=== PATIENT | female | born 1945 | race Caucasian/White ===

== ENCOUNTER 2016-12-30 08:05 | Outpatient (CLI) | payer MEDICARE, OTHER ==
[2016-12-30 19:59] LABS: BASOPHILS % (AUTO) 1.2 %; EOSINOPHILS # (AUTO) 0.1 10^3/uL (0.0-0.7); EOSINOPHILS % (AUTO) 2.7 %; HCT - HEMATOCRIT 42.2 % (37.0-47.0); HGB - HEMOGLOBIN 13.9 g/dL (12.0-16.0); LYMPHOCYTES # (AUTO) 1.1 10^3/uL (1.5-3.5); LYMPHOCYTES % (AUTO) 31.4 %; MEAN CORPUSCULAR HEMOGLOBIN 31.1 pg (27.0-31.0); MEAN CORPUSCULAR HGB CONC 32.9 g/dL (32.0-36.0); MEAN CORPUSCULAR VOLUME 94.4 fL (81.0-99.0); MEAN PLATELET VOLUME 7.5 fL (7.9-10.8); MONOCYTES # (AUTO) 0.3 10^3/uL (0.0-1.0); MONOCYTES % (AUTO) 8.3 %; NEUTROPHILS # (AUTO) 2.1 10^3/uL (1.5-6.6); NEUTROPHILS % (AUTO) 56.4 %; NUCLEATED RED BLOOD CELLS AUTO 0.1 /100WBC; RED BLOOD COUNT 4.47 10^6/uL (4.20-5.40); RED CELL DISTRIBUTION WIDTH 12.6 % (12.0-15.0); UNCORRECTED WHITE BLOOD COUNT 3.6 x10^3/uL; WHITE BLOOD COUNT 3.6 x10^3/uL (4.8-10.8)
[2016-12-30 20:38] LABS: ALBUMIN/GLOBULIN RATIO 1.4 (1.0-2.2); BILIRUBIN,TOTAL 0.6 mg/dL (0.2-1.0); BUN - BLOOD UREA NITROGEN 11 mg/dL (6-20); CALCIUM 9.5 mg/dL (8.5-10.3); CARBON DIOXIDE - CO2 28 mmol/L (21-32); CHLORIDE 100 mmol/L (101-111); CHOL/HDL RATIO 3.3 (<4.4); CHOLESTEROL 196 mg/dL; CREATININE 0.7 mg/dL (0.4-1.0); GFR - MDRD 82 (>89); GLUCOSE 126 mg/dL (70-100); HDL CHOLESTEROL 59 mg/dL; LDL/HDL RATIO 1.1 (<4.4); POTASSIUM 3.9 mmol/L (3.5-5.0); SODIUM 137 mmol/L (135-145); TOTAL PROTEIN 7.1 g/dL (6.7-8.2); TRIGLYCERIDES 352 mg/dL; VLDL CHOLESTEROL 70 mg/dL
== END 2016-12-30 08:06 | disposition home or self-care (01) ==
LOC: LAB.WCP 08:05
PROVIDERS: ATTEND Family Medicine
DX: R00.2 Palpitations (principal); I10 Essential (primary) hypertension
CPT/HCPCS: 36415; 80053; 80061; 84443; 85025

== ENCOUNTER 2017-01-15 11:01 | Outpatient (CLI) | payer MEDICARE, OTHER ==
--- NOTE | 2017-01-15 15:07 | CARDIAC PROCEDURE NOTE ---
DATE OF SERVICE: 01/15/2017 00:00:00 PRIMARY CARE PHYSICIAN: Bettie Khan DO PROCEDURE: Pharmacologic stress test. PROCEDURE SYMPTOMS: Heart palpitations and hypertension. CARDIAC RISK FACTORS: Include age, hypertension and hyperlipidemia. PREVIOUS CARDIAC PROCEDURES: none. CLINICAL HISTORY: A 71-year-old female without known coronary artery disease. INITIAL RESTING VITAL SIGNS: Blood pressure 148/78, heart rate 77, height 63 inches, weight 143 pounds, BMI 25.0. PROCEDURE AND FINDINGS: The patient's identity and date verified. Consent signed. Drug and dose verified. Pharmacologic stress testing was performed with adenosine at a dose of 140 mcg/kg over 6 minutes. The heart rate increased to 98 bpm with a blood pressure peak of 150/82. The patient developed mild symptoms of restlessness, which resolved spontaneously. The resting ECG demonstrated normal sinus rhythm with poor R-wave progression. No pathologic Q- waves were seen. There was no ST segment depression with stress, and there were 2 isolated premature ventricular contractions. FINAL IMPRESSION 1. Negative stress electrocardiogram for ischemia by electrocardiographic criteria. 2. Negative stress test clinically for angina. 3. Two monolithic premature ventricular contractions. 4. Await myocardial perfusion scan. JOB #: [id number] EXT JOB #:[id number] MTDNancie
[2017-01-15 17:11] VITALS: BP 148/78
--- NOTE | 2017-01-16 09:10 | Nuclear Medicine Report ---
EXAM: SINGLE-ISOTOPE PHARMACOLOGICAL STRESS TEST WITH REGADENOSON. SINGLE-ISOTOPE AND ONE-DAY REST/STRESS M YOCARDIAL PERFUSION SCANS WITH TOMOGRAPHIC IMAGING, QUANTITATIVE ANALYSIS, WALL MOTION ANALYSIS AND C ALCULATION OF EJECTION FRACTION. EXAM DATE: 01/15/2017 12:51 PM. CLINICAL HISTORY: PALPITATIONS, HTN. COMPARISON: None available. TECHNIQUE: After the intravenous administration of 10.6 mCi of Tc-99m sestamibi, a rest myocardial perfusion sca n was done with tomography. Motion correction was applied when appropriate. After an appropriate delay, a pharmacological stress was performed with the infusion of 0.4 mg regade noson per protocol. According to protocol, 43.8 mCi of Tc-99m sestamibi was injected for stress myoca rdial perfusion scan. Motion correction was applied when appropriate. Gated tomographic images were obtained for wall motion analysis and computation of left ventricular e jection fraction. FINDINGS: There is mild apical thinning. No convincing fixed or reversible perfusion defects are evid ent. No focal wall motion abnormality. The left ventricular end-diastolic volume is 61 cc. The left ventricular end-systolic volume is 13 cc . The left ventricular ejection fraction is calculated to be 80%. IMPRESSION: 1. No scintigraphic findings to indicate myocardial ischemia. Negative for infarct. 2. Left ventricular ejection fraction of 80%. 3. Normal segmental and global wall motion. 4. Normal left ventricular cavity size, no change with stress. [facility] Referring Provider Line: [phone] SITE ID: [id number]
== END 2017-01-15 11:02 | disposition home or self-care (01) ==
LOC: DI 11:01
PROVIDERS: ATTEND Family Medicine
DX: R00.2 Palpitations (principal); I10 Essential (primary) hypertension
CPT/HCPCS: 78452; 93017; A9500

== ENCOUNTER 2017-04-01 14:55 | Outpatient (CLI) | payer MEDICARE, OTHER ==
--- NOTE | 2017-04-03 12:22 | Mammography Report ---
DIGITAL BILATERAL SCREENING MAMMOGRAM: 04/01/2017 COMPARISON STUDY: Mammogram 03/05/2016. INDICATION: Screening mammography. TECHNIQUE: Routine CC and MLO projections were obtained of the breasts. FINDINGS: Parenchymal tissue within both breasts is heterogeneously dense, which may lower the sensi tivity of mammography; however, there are no dominant masses, suspicious microcalcifications, or seco ndary signs of malignancy. In comparison to the previous studies, there are no significant changes. ASSESSMENT: NO MAMMOGRAPHIC EVIDENCE OF MALIGNANCY. NO SIGNIFICANT INTERVAL CHANGES. RECOMMENDATION: Screening mammography is recommended annually. BIRADS category 1 - negative. STANDARD QUALIFYING STATEMENTS 1. This examination was reviewed with the aid of Computed-Aided Detection (CAD). 2. A negative or benign imaging report should not delay biopsy if clinically suspicious findings are present. Consider surgical consultation if warranted. More than 5% of cancers are not identified by i maging. 3. Dense breasts may obscure an underlying neoplasm. JOB #: [id number] EXT JOB #:[id number]
== END 2017-04-01 14:56 | disposition home or self-care (01) ==
LOC: DI 14:55
PROVIDERS: ATTEND Family Medicine
DX: Z12.31 Encounter for screening mammogram for malignant neoplasm of breast (principal)
CPT/HCPCS: 77067

== ENCOUNTER 2017-12-03 08:00 | Outpatient (CLI) | payer MEDICARE, OTHER ==
[2017-12-03 12:30] LABS: BASOPHILS % (AUTO) 1.1 %; EOSINOPHILS # (AUTO) 0.1 10^3/uL (0.0-0.7); EOSINOPHILS % (AUTO) 2.7 %; HGB - HEMOGLOBIN 13.1 g/dL (12.0-16.0); LYMPHOCYTES # (AUTO) 1.5 10^3/uL (1.5-3.5); MEAN CORPUSCULAR HEMOGLOBIN 31.8 pg (27.0-31.0); MEAN CORPUSCULAR HGB CONC 33.3 g/dL (32.0-36.0); MEAN CORPUSCULAR VOLUME 95.7 fL (81.0-99.0); MEAN PLATELET VOLUME 7.3 fL (7.9-10.8); MONOCYTES # (AUTO) 0.3 10^3/uL (0.0-1.0); MONOCYTES % (AUTO) 9.7 %; NEUTROPHILS # (AUTO) 1.6 10^3/uL (1.5-6.6); NEUTROPHILS % (AUTO) 45.5 %; PLT - PLATELET COUNT 222 10^3/uL (130-450); RED CELL DISTRIBUTION WIDTH 12.6 % (12.0-15.0); WHITE BLOOD COUNT 3.6 x10^3/uL (4.8-10.8)
[2017-12-03 13:03] LABS: ALBUMIN 3.7 g/dL (3.2-5.5); ALBUMIN/GLOBULIN RATIO 1.3 (1.0-2.2); ALKALINE PHOSPHATASE 60 IU/L (42-121); ALT ALANINE AMINOTRANSFERASE 32 IU/L (10-60); AST ASPARTATE AMINOTRANSFERASE 28 IU/L (10-42); BILIRUBIN,TOTAL 0.5 mg/dL (0.2-1.0); BUN - BLOOD UREA NITROGEN 15 mg/dL (6-20); CALCIUM 8.9 mg/dL (8.5-10.3); CARBON DIOXIDE - CO2 26 mmol/L (21-32); CHLORIDE 102 mmol/L (101-111); CHOL/HDL RATIO 3.2 (<4.4); CHOLESTEROL 154 mg/dL; CREATININE 0.6 mg/dL (0.4-1.0); GFR - MDRD 98 (>89); GLUCOSE 99 mg/dL (70-100); HDL CHOLESTEROL 48 mg/dL; LDL CHOLESTEROL,CALCULATED 62 mg/dL; LDL/HDL RATIO 1.3 (<4.4); MAGNESIUM 2.1 mg/dL (1.7-2.8); SODIUM 135 mmol/L (135-145); TOTAL PROTEIN 6.6 g/dL (6.7-8.2); VLDL CHOLESTEROL 44 mg/dL
[2017-12-04 13:46] LABS: HEPATITIS C ANTIBODY NON-REACTIVE (NON-REACTIVE)
== END 2017-12-03 08:01 | disposition home or self-care (01) ==
LOC: LAB.WCP 08:00
PROVIDERS: ATTEND Physician Assistant Medical
DX: E78.5 Hyperlipidemia, unspecified (principal); R00.2 Palpitations; M19.041 Primary osteoarthritis, right hand; Z11.59 Encounter for screening for other viral diseases
CPT/HCPCS: 36415; 80053; 80061; 83721; 83735; 84443; 85025; 86803

== ENCOUNTER 2018-01-06 09:06 | Outpatient (CLI) | payer MEDICARE, OTHER ==
--- NOTE | 2018-01-06 15:53 | DEXA Report ---
Procedure Date: 01/06/2018 Accession Number: [id number] / [id number] Procedure: DEX - Dexa Spine and/or Hip CPT Code: FULL RESULT: EXAM: Dexa Spine and/or Hip DATE: 01/06/2018 9:49 AM CLINICAL HISTORY: BONE DISORDER TECHNIQUE: Dual energy x-ray absorptiometry (DXA) was performed on a [employer]ov[employer] System. Regions measured are the AP Spine, femoral neck, and if needed forearm. COMPARISON: None. In accordance with the International Society for Clinical Densitometry (ISCD) guidelines, data from previous exams may be reanalyzed using current recommendations and techniques. This is done to allow a more accurate basis for comparison with the current study. FINDINGS: The data for the lumbar spine is as follows: BMD (g/cm/cm) T-SCORE Z-SCORE REGION L1 1.313 1.5 3.2 L2 1.506 2.5 4.2 L3 1.677 4.0 5.6 L4 1.433 1.9 3.6 TOTAL 1.485 2.5 4.2 NOTE: All evaluable vertebrae are used for classification The data for the hip is as follows: BMD (g/cm/cm) T-SCORE Z-SCORE REGION Neck 0.956 -0.6 1.2 TOTAL 1.020 0.1 1.7 NOTE: The femoral neck or total proximal femur, whichever is lowest, is used for classification. IMPRESSION: THE WHO CLASSIFICATION BASED ON THE INTERNATIONAL REFERENCE STANDARD IS NORMAL. THE FRACTURE RISK IS NOT INCREASED. RECOMMENDATION: Patients with diagnosis of osteoporosis or osteopenia should have regular bone mineral density assessment. For those eligible for Medicare, routine testing is allowed once every 2 years. Testing frequency can be increased for patients who have rapidly progressing disease or for those who are receiving medical therapy to restore bone mass. COMMENT: World Health Organization (WHO) definitions for osteoporosis and osteopenia: NORMAL BMD: T-score at -1.0 or higher, fracture risk is low OSTEOPENIA BMD: T-score between -1.0 and -2.5, fracture risk is increased. OSTEOPOROSIS BMD: T-score at -2.5 or lower, fracture risk is high. National Osteoporosis Foundation recommends: 1. Obtain adequate dietary calcium (at least 1200 mg per day) and vitamin D (400-800 international units per day). 2. Participate, as appropriate, in regular weightbearing and muscle-strengthening exercise. 3. Avoid tobacco use and reduce alcohol and caffeine intake. 4. For more detailed information see the website at www.NOF.org.
== END 2018-01-06 09:07 | disposition home or self-care (01) ==
LOC: DI 09:06
PROVIDERS: ATTEND Family Medicine
DX: M89.9 Disorder of bone, unspecified (principal)
CPT/HCPCS: 77080

== ENCOUNTER 2018-04-05 10:19 | Outpatient (CLI) | payer MEDICARE, OTHER ==
--- NOTE | 2018-04-06 09:22 | Mammography Report ---
Reason: SCREEN w MICHA Procedure Date: 04/05/2018 Accession Number: [id number] / [id number] Procedure: ANDRE - Screening Mammo w/Micha CPT Code: FULL RESULT: EXAM: Screening Mammo w/Micha DATE: 04/05/2018 10:52 AM CLINICAL HISTORY: 72-year-old female with family history of breast cancer in cousin at the age of 24 and an aunt at the age of 70. TECHNIQUE: Bilateral CC and MLO views were obtained. COMPARISON: 04/01/2017, 03/05/2016, 02/21/2016, 12/20/2014. FINDINGS: The breasts demonstrate heterogeneously dense fibroglandular parenchyma bilaterally. No suspicious masses, clustered microcalcifications, or regions of architectural distortion are identified. IMPRESSION: Negative examination RECOMMENDATION: Routine annual screening unless otherwise clinically indicated. BIRADS CATEGORY 1: Negative STANDARD QUALIFYING STATEMENTS: 1. This examination was not reviewed with the aid of Computer-Aided Detection (CAD). 2. A negative or benign imaging report should not delay biopsy if clinically suspicious findings are present. Consider surgical consultation if warrented. More than 5% of cancers are not identified by imaging. 3. Dense breasts may obscure an underlying neoplasm. 4. This examination was reviewed with the aid of 3D breast imaging (tomosynthesis).
== END 2018-04-05 10:20 | disposition home or self-care (01) ==
LOC: DI 10:19
DX: Z12.31 Encounter for screening mammogram for malignant neoplasm of breast (principal); Z80.3 Family history of malignant neoplasm of breast
CPT/HCPCS: 77063; 77067

== ENCOUNTER 2019-04-20 14:29 | Outpatient (CLI) | payer MEDICARE, OTHER ==
--- NOTE | 2019-04-22 09:07 | Mammography Report ---
Reason: SCREENING MAMMO Procedure Date: 04/20/2019 Accession Number: [id number] / [id number] Procedure: ANDRE - Screening Mammo w/Dago CPT Code: Final Report FULL RESULT: EXAM: Screening Mammo w/Dago DATE: 04/20/2019 2:58 PM CLINICAL HISTORY: Routine screening. No reported personal history of breast cancer. Family history breast cancer paternal aunt age 70. TECHNIQUE: (B) - Bilateral CC and MLO views were obtained. COMPARISON: 04/05/2018 through 12/20/2014. PARENCHYMAL PATTERN: (D) - The breasts demonstrate heterogeneously dense fibroglandular parenchyma bilaterally. FINDINGS: Bilateral breasts: There are no suspicious masses, calcifications, or areas of distortion. IMPRESSION: Negative examination. BI-RADS category 1. RECOMMENDATION: (ANNUAL) - Recommend routine annual screening mammography. BI-RADS CATEGORY: (1) - Negative. STANDARD QUALIFYING STATEMENTS: 1. This examination was not reviewed with the aid of Computer-Aided Detection (CAD). 2. A negative or benign imaging report should not preclude biopsy if clinically suspicious findings are present. 3. Dense breasts may obscure an underlying neoplasm. 4. This examination was reviewed with the aid of 3D breast imaging (tomosynthesis).
== END 2019-04-20 14:30 | disposition home or self-care (01) ==
LOC: DI 14:29
DX: Z12.31 Encounter for screening mammogram for malignant neoplasm of breast (principal); Z80.3 Family history of malignant neoplasm of breast
CPT/HCPCS: 77063; 77067

== ENCOUNTER 2020-08-23 10:34 | Outpatient (CLI) | payer MEDICARE, OTHER ==
[2020-08-23 18:25] LABS: BASOPHILS # (AUTO) 0.1 10^3/uL (0.0-0.1); BASOPHILS % (AUTO) 1.9 %; EOSINOPHILS # (AUTO) 0.1 10^3/uL (0.0-0.7); EOSINOPHILS % (AUTO) 2.1 %; HCT - HEMATOCRIT 42.4 % (37.0-47.0); HGB - HEMOGLOBIN 13.2 g/dL (12.0-16.0); LYMPHOCYTES # (AUTO) 1.3 10^3/uL (1.5-3.5); LYMPHOCYTES % (AUTO) 31.5 %; MEAN CORPUSCULAR HEMOGLOBIN 30.8 pg (27.0-31.0); MEAN CORPUSCULAR HGB CONC 31.1 g/dL (32.0-36.0); MEAN CORPUSCULAR VOLUME 98.8 fL (81.0-99.0); MEAN PLATELET VOLUME 9.7 fL (7.9-10.8); MONOCYTES # (AUTO) 0.3 10^3/uL (0.0-1.0); MONOCYTES % (AUTO) 7.3 %; NEUTROPHILS # (AUTO) 2.4 10^3/uL (1.5-6.6); NEUTROPHILS % (AUTO) 56.7 %; PLT - PLATELET COUNT 292 10^3/uL (130-450); RED BLOOD COUNT 4.29 10^6/uL (4.20-5.40); WHITE BLOOD COUNT 4.3 x10^3/uL (4.8-10.8)
[2020-08-23 18:51] LABS: ALBUMIN 4.6 g/dL (3.2-5.5); ALBUMIN/GLOBULIN RATIO 1.6 (1.0-2.2); ALKALINE PHOSPHATASE 96 IU/L (42-121); ALT ALANINE AMINOTRANSFERASE 30 IU/L (10-60); AST ASPARTATE AMINOTRANSFERASE 33 IU/L (10-42); BILIRUBIN,TOTAL 0.8 mg/dL (0.2-1.0); BUN - BLOOD UREA NITROGEN 10 mg/dL (6-20); CALCIUM 9.6 mg/dL (8.5-10.3); CARBON DIOXIDE - CO2 27 mmol/L (21-32); CHLORIDE 101 mmol/L (101-111); CHOL/HDL RATIO 2.8 (<4.4); CHOLESTEROL 223 mg/dL; CREATININE 0.7 mg/dL (0.4-1.0); GFR - MDRD 82 (>89); GLUCOSE 110 mg/dL (70-100); HDL CHOLESTEROL 81 mg/dL; LDL CHOLESTEROL,CALCULATED 85 mg/dL; SODIUM 139 mmol/L (135-145); TOTAL PROTEIN 7.5 g/dL (6.7-8.2); TRIGLYCERIDES 287 mg/dL; VLDL CHOLESTEROL 57 mg/dL
== END 2020-08-23 10:35 | disposition home or self-care (01) ==
LOC: LAB.N 10:34
PROVIDERS: ATTEND Family Medicine
DX: E78.5 Hyperlipidemia, unspecified (principal); I10 Essential (primary) hypertension
CPT/HCPCS: 36415; 80053; 80061; 83721; 85025

== ENCOUNTER 2020-08-30 10:21 | Outpatient (CLI) | payer MEDICARE, OTHER ==
--- NOTE | 2020-08-31 09:26 | Mammography Report ---
BILATERAL DIGITAL SCREENING MAMMOGRAM 3D/2D: 08/30/2020 CLINICAL: Routine screening. Comparison is made to exams dated: 04/20/2019 mammogram, 04/05/2018 mammogram, 04/01/2017 mammogram, and 02/21/2016 mammogram - [facility]. The tissue of both breasts is heterogeneous ly dense. This may lower the sensitivity of mammography. No significant masses, calcifications, or other findings are seen in either breast. There has been no significant interval change. IMPRESSION: NEGATIVE There is no mammographic evidence of malignancy. A 1 year screening mammogram is recommended. This exam was interpreted at Station ID: [id number]. NOTE: For mammograms, a report in lay terms will be sent to the patient. Approximately 15% of breast malignancies will not be visualized mammographically. In the management of a palpable breast mass, a negative mammogram must not discourage biopsy of a clinically suspicious lesion. Electronically Signed By: Marcus Davidson M.D. slc/penrad:08/30/2020 12:34:27 ACR BI-RADS Category 1: Negative 3341F PARENCHYMAL PATTERN: (D) - The breast(s) demonstrate(s) heterogeneously dense fibroglandular bernabe swanson. BI-RADS CATEGORY: (1) - 1 RECOMMENDATION: (ANNUAL) - Recommend routine annual screening mammography. [id number] 1 year screening LATERALITY: (B)
== END 2020-08-30 10:22 | disposition home or self-care (01) ==
LOC: DI.N 10:21
DX: Z12.31 Encounter for screening mammogram for malignant neoplasm of breast (principal)

== ENCOUNTER 2021-07-03 08:00 | Outpatient (CLI) | payer MEDICARE, OTHER ==
[2021-07-03 12:28] LABS: BASOPHILS # (AUTO) 0.1 10^3/uL (0.0-0.1); BASOPHILS % (AUTO) 1.3 %; EOSINOPHILS # (AUTO) 0.1 10^3/uL (0.0-0.7); EOSINOPHILS % (AUTO) 2.1 %; HCT - HEMATOCRIT 40.5 % (37.0-47.0); HGB - HEMOGLOBIN 13.2 g/dL (12.0-16.0); LYMPHOCYTES # (AUTO) 1.2 10^3/uL (1.5-3.5); LYMPHOCYTES % (AUTO) 31.9 %; MEAN CORPUSCULAR HEMOGLOBIN 31.5 pg (27.0-31.0); MEAN CORPUSCULAR HGB CONC 32.6 g/dL (32.0-36.0); MEAN CORPUSCULAR VOLUME 96.7 fL (81.0-99.0); MEAN PLATELET VOLUME 9.7 fL (7.9-10.8); MONOCYTES # (AUTO) 0.4 10^3/uL (0.0-1.0); MONOCYTES % (AUTO) 10.3 %; NEUTROPHILS # (AUTO) 2.1 10^3/uL (1.5-6.6); NEUTROPHILS % (AUTO) 54.1 %; PLT - PLATELET COUNT 232 10^3/uL (130-450); RED BLOOD COUNT 4.19 10^6/uL (4.20-5.40); RED CELL DISTRIBUTION WIDTH 12.4 % (12.0-15.0); WHITE BLOOD COUNT 3.9 x10^3/uL (4.8-10.8)
[2021-07-03 12:39] LABS: ALBUMIN/GLOBULIN RATIO 1.4 (1.0-2.2); BILIRUBIN,TOTAL 0.9 mg/dL (0.2-1.0); CALCIUM 9.1 mg/dL (8.5-10.3); CREATININE 0.7 mg/dL (0.4-1.0); POTASSIUM 3.6 mmol/L (3.5-5.0); TOTAL PROTEIN 6.8 g/dL (6.7-8.2)
== END 2021-07-03 23:59 | disposition home or self-care (01) ==
LOC: LAB.WCP 08:00
PROVIDERS: ATTEND Physician Assistant Medical
DX: E78.5 Hyperlipidemia, unspecified (principal)
CPT/HCPCS: 36415; 80053; 85025

== ENCOUNTER 2021-10-29 08:56 | Outpatient (CLI) | payer MEDICARE, OTHER ==
--- NOTE | 2021-10-29 13:49 | Mammography Report ---
BILATERAL DIGITAL SCREENING MAMMOGRAM 3D/2D: 10/29/2021 CLINICAL: Routine screening. Comparison is made to exams dated: 08/30/2020 mammogram, 04/20/2019 mammogram, 04/05/2018 mammogram, 04/01/2017 mammogram, 03/05/2016 mammogram, and 02/21/2016 mammogram - [facility]. T he tissue of both breasts is heterogeneously dense. This may lower the sensitivity of mammography. No significant masses, calcifications, or other findings are seen in either breast. There has been no significant interval change. IMPRESSION: NEGATIVE There is no mammographic evidence of malignancy. A 1 year screening mammogram is recommended. This exam was interpreted at Station ID: [id number]. NOTE: For mammograms, a report in lay terms will be sent to the patient. Approximately 15% of breast malignancies will not be visualized mammographically. In the management of a palpable breast mass, a negative mammogram must not discourage biopsy of a clinically suspicious lesion. Electronically Signed By: Bernardo Mederos acr/penrad:10/29/2021 09:41:43 ACR BI-RADS Category 1: Negative 3341F PARENCHYMAL PATTERN: (D) - The breast(s) demonstrate(s) heterogeneously dense fibroglandular parherminia swanson. BI-RADS CATEGORY: (1) - 1 RECOMMENDATION: (ANNUAL) - Recommend routine annual screening mammography. [id number] 1 year screening LATERALITY: (B)
== END 2021-10-29 08:57 | disposition home or self-care (01) ==
LOC: DI.N 08:56
DX: Z12.31 Encounter for screening mammogram for malignant neoplasm of breast (principal)

== ENCOUNTER 2021-10-29 09:45 | Outpatient (CLI) | payer MEDICARE, OTHER ==
--- NOTE | 2021-10-29 17:22 | XRAY Report ---
PROCEDURE: Knee 2 View RT INDICATIONS: R KNEE PX TECHNIQUE: 2 views of the right knee(s) were acquired. COMPARISON: None. FINDINGS: Bones: No fractures or dislocations. No suspicious bony lesions. Moderate medial and mild to moder ate lateral and patellofemoral compartment narrowing. Minimal paratracheal or osteophytes. No erosion s. Soft tissues: No joint effusion. No suspicious soft tissue calcifications. 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 Reviewed by: Kacie Lora MD on 10/29/2021 5:21 PM PDT Approved by: Kacie Lora MD on 10/29/2021 5:21 PM PDT Station ID: [id number]
== END 2021-10-29 23:59 | disposition home or self-care (01) ==
LOC: DI.N 09:45
PROVIDERS: ATTEND Nurse Practitioner
DX: M17.11 Unilateral primary osteoarthritis, right knee (principal)

== ENCOUNTER 2022-06-16 07:40 | Outpatient (CLI) | payer MEDICARE, OTHER ==
[2022-06-16 12:37] LABS: BASOPHILS # (AUTO) 0.1 10^3/uL (0.0-0.1); BASOPHILS % (AUTO) 1.4 %; EOSINOPHILS # (AUTO) 0.1 10^3/uL (0.0-0.7); EOSINOPHILS % (AUTO) 2.5 %; HCT - HEMATOCRIT 40.9 % (37.0-47.0); HGB - HEMOGLOBIN 12.9 g/dL (12.0-16.0); LYMPHOCYTES # (AUTO) 1.6 10^3/uL (1.5-3.5); LYMPHOCYTES % (AUTO) 36.5 %; MEAN CORPUSCULAR HEMOGLOBIN 31.6 pg (27.0-31.0); MEAN CORPUSCULAR HGB CONC 31.5 g/dL (32.0-36.0); MEAN CORPUSCULAR VOLUME 100.2 fL (81.0-99.0); MEAN PLATELET VOLUME 9.6 fL (7.9-10.8); MONOCYTES # (AUTO) 0.4 10^3/uL (0.0-1.0); MONOCYTES % (AUTO) 8.8 %; NEUTROPHILS # (AUTO) 2.3 10^3/uL (1.5-6.6); NEUTROPHILS % (AUTO) 50.6 %; PLT - PLATELET COUNT 277 10^3/uL (130-450); RED BLOOD COUNT 4.08 10^6/uL (4.20-5.40); RED CELL DISTRIBUTION WIDTH 14.2 % (12.0-15.0); WHITE BLOOD COUNT 4.4 x10^3/uL (4.8-10.8)
[2022-06-16 13:14] LABS: ALBUMIN 4.1 g/dL (3.2-5.5); ALBUMIN/GLOBULIN RATIO 1.5 (1.0-2.2); ALKALINE PHOSPHATASE 86 IU/L (42-121); ALT ALANINE AMINOTRANSFERASE 29 IU/L (10-60); AST ASPARTATE AMINOTRANSFERASE 31 IU/L (10-42); BILIRUBIN,TOTAL 1.2 mg/dL (0.2-1.0); BUN - BLOOD UREA NITROGEN 10 mg/dL (6-20); CALCIUM 9.3 mg/dL (8.5-10.3); CARBON DIOXIDE - CO2 30 mmol/L (21-32); CHLORIDE 98 mmol/L (101-111); CHOL/HDL RATIO 2.5 (<4.4); CHOLESTEROL 209 mg/dL; CREATININE 0.6 mg/dL (0.4-1.0); GFR - MDRD 97 (>89); GLUCOSE 107 mg/dL (70-100); HDL CHOLESTEROL 83 mg/dL; LDL CHOLESTEROL,CALCULATED 79 mg/dL; SODIUM 136 mmol/L (135-145); TOTAL PROTEIN 6.9 g/dL (6.7-8.2); TRIGLYCERIDES 233 mg/dL; VLDL CHOLESTEROL 47 mg/dL
[2022-06-16 13:20] LABS: THYROID STIMULATING HORMONE 1.64 uIU/mL (0.34-5.60)
== END 2022-06-16 07:41 | disposition home or self-care (01) ==
LOC: LAB.N 07:40
PROVIDERS: ATTEND Nurse Practitioner Family
DX: I10 Essential (primary) hypertension (principal); E78.5 Hyperlipidemia, unspecified
CPT/HCPCS: 36415; 80053; 80061; 83721; 84443; 85025

== ENCOUNTER 2022-11-11 08:00 | Outpatient (CLI) | payer MEDICARE, OTHER ==
[2022-11-11 18:49] LABS: BILIRUBIN,URINE NEGATIVE (NEGATIVE); GLUCOSE, URINE (UA) NEGATIVE (NEGATIVE); KETONES,URINE (UA) NEGATIVE (NEGATIVE); LEUKOCYTE ESTERASE, URINE TRACE (NEGATIVE); NITRITE,URINE NEGATIVE (NEGATIVE); OCCULT BLOOD,URINE NEGATIVE (NEGATIVE); PH,URINE 5.5 PH (5.0-7.5); PROTEIN,URINE NEGATIVE (NEGATIVE); UROBILINOGEN,URINE 0.2 (NORMAL) E.U./dL (NORMAL)
[2022-11-11 19:02] LABS: AMORPHOUS SEDIMENT,UR Marked /LPF; BACTERIA,URINE None Seen /HPF (None Seen); CLARITY,URINE CLOUDY (CLEAR); RBC,URINE None Seen /HPF (0-5); SQUAMOUS EPITHELIAL CELL,UR NONE SEEN (<= Few); WBC,URINE 0-3 /HPF (0-5)
== END 2022-11-11 23:59 | disposition home or self-care (01) ==
LOC: LAB.WCP 08:00
PROVIDERS: ATTEND Nurse Practitioner Family
DX: R30.0 Dysuria (principal)
CPT/HCPCS: 81001; 87077; 87086; 87181

== ENCOUNTER 2023-01-15 10:22 | Outpatient (CLI) | payer MEDICARE, OTHER ==
--- NOTE | 2023-01-16 09:20 | Mammography Report ---
BILATERAL DIGITAL SCREENING MAMMOGRAM 3D/2D: 01/15/2023 CLINICAL: Routine screening. Comparison is made to exams dated: 10/29/2021 mammogram, 08/30/2020 mammogram, 04/20/2019 mammogram, a nd 04/05/2018 mammogram - [facility]. Both breasts are heterogeneously dense, which may obscure small masses (category c / 51-75% glandular tissue). There is a focal asymmetry with heterogeneous calcifications in the left breast at 1 o'clock posterio r depth. This is more prominent. No other significant masses, calcifications, or other findings are seen in either breast. IMPRESSION: INCOMPLETE: NEEDS ADDITIONAL IMAGING EVALUATION The focal asymmetry in the left breast is indeterminate. Additional views with possible ultrasound are recommended. Based on the Tyrer Cuzick model (a risk assessment model) the patients lifetime risk is 3.9% and her 10 year risk is 0.0%. According to the ACR, ACS, and NCCN guidelines, an annual breast MRI exam alexei g with mammogram is recommended if the patients lifetime risk is 20% or greater. This exam was interpreted at Station ID: [id number]. NOTE: For mammograms, a report in lay terms will be sent to the patient. Approximately 15% of breast malignancies will not be visualized mammographically. In the management of a palpable breast mass, a negative mammogram must not discourage biopsy of a clinically suspicious lesion. Electronically Signed By: Marcus Davidson M.D. slc/:01/15/2023 16:31:50 ACR BI-RADS Category 0: Incomplete 3340F PARENCHYMAL PATTERN: (D) - The breast(s) demonstrate(s) heterogeneously dense fibroglandular parherminia swanson. BI-RADS CATEGORY: (0) - 0 Mammo and [place] [id number] Immediate follow-up LATERALITY: (B)
== END 2023-01-15 10:23 | disposition home or self-care (01) ==
LOC: DI.N 10:22
DX: Z12.31 Encounter for screening mammogram for malignant neoplasm of breast (principal); R92.8 Other abnormal and inconclusive findings on diagnostic imaging of breast

== ENCOUNTER 2023-02-11 10:30 | Outpatient (CLI) | payer MEDICARE, OTHER ==
--- NOTE | 2023-02-12 12:34 | Ultrasound Report ---
LIMITED ULTRASOUND OF LEFT BREAST AND AXILLA: 02/11/2023 CLINICAL: Patient returns today to evaluate a focal asymmetry in the left breast. Comparison is made to exams dated: 02/11/2023 mammogram, 01/15/2023 mammogram, 10/29/2021 mammogram, 08/07 mammogram, and 04/20/2019 mammogram - [facility]. Color flow and real-time ultrasound of the left breast 2 o'clock, and axilla regions were performed. Cruz scale images of the real-time examination were reviewed. There is a 3 cm x 1.5 cm x 2.2 cm irregular mass with angular margins in the left breast at 2 o'clock middle depth 4 cm from the nipple. This irregular mass is hypoechoic with posterior acoustic shadow ing. This correlates with mammography findings. There is associated architectural distortion. [place] r flow imaging demonstrates that there is vascularity present. Several abnormal lymph nodes are seen immediately adjacent to this mass. There also is an oval lymph node with eccentric cortical thickening in the left axilla. This oval ly mph node is hypoechoic. IMPRESSION: HIGHLY SUGGESTIVE OF MALIGNANCY The 3 cm x 1.5 cm x 2.2 cm irregular mass in the left breast at 2 o'clock middle depth is highly sugg estive of malignancy. An ultrasound guided biopsy is recommended. The oval lymph node with eccentric cortical thickening in the left axilla is consistent with an enlar ged lymph node and is suspicious of malignancy. An ultrasound guided biopsy is recommended. Findings and recommendations were discussed with the patient by Dr. Lora during today's examination. This exam was interpreted at Station ID: [id number]. Electronically Signed By: Arnold Cuevas M.D. aty/:02/11/2023 11:53:13 Ultrasound BI-RADS: 5 Highly suggestive of malignancy BI-RADS CATEGORY: (5) - 5 Biopsy [id number] Immediate follow-up LATERALITY: (L)
--- NOTE | 2023-02-12 12:34 | Mammography Report ---
UNILATERAL LEFT DIGITAL DIAGNOSTIC MAMMOGRAM 3D/2D WITH SPOT COMPRESSION: 02/11/2023 CLINICAL: Patient returns today to evaluate a focal asymmetry in the left breast. Comparison is made to exams dated: 01/15/2023 mammogram, 10/29/2021 mammogram, 08/30/2020 mammogram, mammogram, 04/05/2018 mammogram, and 04/01/2017 mammogram - [facility]. The left breast is heterogeneously dense, which may obscure small masses (category c / 51-75% glandul ar tissue). There is a new 2.2 cm x 2.2 cm irregular high density focal asymmetry with heterogeneous calcificatio ns in the left breast at 2 o'clock middle depth. This is seen in additional views. There is also po ssible architectural distortion associated with the focal asymmetry. No other significant masses or calcifications are seen in the breast. IMPRESSION: INCOMPLETE: NEEDS ADDITIONAL IMAGING EVALUATION The new 2.2 cm x 2.2 cm irregular high density focal asymmetry in the left breast is indeterminate. An ultrasound is recommended for further evaluation and is scheduled to immediately follow this exami nation. Based on the Tyrer Cuzick model (a risk assessment model) the patients lifetime risk is 4.0% and her 10 year risk is 0.0%. According to the ACR, ACS, and NCCN guidelines, an annual breast MRI exam alexei g with mammogram is recommended if the patients lifetime risk is 20% or greater. This exam was interpreted at Station ID: [id number]. NOTE: For mammograms, a report in lay terms will be sent to the patient. Approximately 15% of breast malignancies will not be visualized mammographically. In the management of a palpable breast mass, a negative mammogram must not discourage biopsy of a clinically suspicious lesion. Electronically Signed By: Arnold Cuevas M.D. aty/:02/11/2023 11:20:27 ACR BI-RADS Category 0: Incomplete 3340F PARENCHYMAL PATTERN: (D) - The breast(s) demonstrate(s) heterogeneously dense fibroglandular parenchy ma. BI-RADS CATEGORY: (0) - 0 Ultrasound [id number] Immediate follow-up LATERALITY: (L)
== END 2023-02-11 10:31 | disposition home or self-care (01) ==
LOC: DI 10:30
PROVIDERS: ATTEND Nurse Practitioner Family
DX: N63.21 Unspecified lump in the left breast, upper outer quadrant (principal); R59.0 Localized enlarged lymph nodes

== ENCOUNTER 2023-02-23 09:37 | Outpatient (CLI) | payer MEDICARE, OTHER ==
[2023-02-23] MEDS ORDERED: LIDOCAINE-MPF 1% 5 ML VIAL ONE (10:25)
[2023-02-23] MEDS ORDERED: LIDOCAINE 1%-EPI 1:100000 50 ML VIAL ONE (10:26)
[2023-02-23] MEDS ORDERED: LIDOCAINE 1%-EPI 1:100000 50 ML VIAL SUBQ ONE (10:45)
[2023-02-23] MEDS ORDERED: LIDOCAINE-MPF 1% 5 ML VIAL TD ONE (15:22)
--- NOTE | 2023-02-26 12:32 | Mammography Report ---
UNILATERAL LEFT DIGITAL DIAGNOSTIC MAMMOGRAM POST-PROCEDURE IMAGING FOR MARKER PLACEMENT: 02/23/2023 CLINICAL: Post left breast ultrasound biopsy clip placement imaging. Comparison is made to exams dated: 02/11/2023 mammogram and 01/15/2023 mammogram - [facility]. The left breast is heterogeneously dense, which may obscure small masses (category c / 51-75% glandul ar tissue). There is a marker clip in the appropriate position in the left breast at 2 o'clock middle depth. Thi s marker clip placement is at the biopsy site. IMPRESSION: POST PROCEDURE MAMMOGRAM FOR MARKER PLACEMENT There was a successful marker clip placement in the left breast middle depth. Based on the Tyrer Cuzick model (a risk assessment model) the patients lifetime risk is 4.0% and her 10 year risk is 0.0%. According to the ACR, ACS, and NCCN guidelines, an annual breast MRI exam alexei g with mammogram is recommended if the patients lifetime risk is 20% or greater. This exam was interpreted at Station ID: [id number]. NOTE: For mammograms, a report in lay terms will be sent to the patient. Approximately 15% of breast malignancies will not be visualized mammographically. In the management of a palpable breast mass, a negative mammogram must not discourage biopsy of a clinically suspicious lesion. Electronically Signed By: Addy Lees M.D. crm/:02/26/2023 07:56:05 ACR BI-RADS Category Post-procedure mammogram for marker placement PARENCHYMAL PATTERN: (D) - The breast(s) demonstrate(s) heterogeneously dense fibroglandular bernabe swanson. BI-RADS CATEGORY: () - Unspecified - other recall n/a LATERALITY: (B)
--- NOTE | 2023-03-06 09:19 | Ultrasound Report ---
ULTRASOUND GUIDED BIOPSY LEFT BREAST USING VACUUM DEVICE WITH MARKING DEVICE INSERTED: 03/02/2023 CLINICAL: Left Breast BX of mass. PATIENT CONSENT: Risks (minor bleeding, infection, vasovagal reaction and repeat procedure), benefits and alternatives were explained to the patient and written informed consent was obtained. Correlation is made to exams dated: 02/11/2023 ultrasound, 02/11/2023 mammogram, and 02/23/2023 mammogram - [facility]. An ultrasound guided biopsy using real-time ultrasound was performed for the 3 cm x 1.5 cm x 2.2 cm m ass located in the left breast at 2 o'clock middle depth 4 cm from the nipple. The skin was prepped in the usual manner. A biopsy needle was placed adjacent to the abnormality under ultrasound guidanc e. Once the needle was documented to be in the correct location, a specimen was obtained using the [employer] ammotome biopsy system. A clip was inserted into the biopsy cavity. [facility]. IMPRESSION: ULTRASOUND GUIDED BIOPSY MALIGNANT Ultrasound guided biopsy of the 3 cm x 1.5 cm x 2.2 cm mass in the left breast at 2 o'clock middle de pth 4 cm from the nipple was successful. Pathology indicates malignant invasive ductal carcinoma (ID ). Pathology results are concordant with imaging findings. A surgical/oncologic consultation is rec ommended. This exam was interpreted at Station ID: [id number]. Addy Cuevas M.D. [facility],aty/:03/06/2023 08:11:34 BI-RADS CATEGORY: () - Unspecified - other recall n/a LATERALITY: (B)
--- NOTE | 2023-03-06 09:19 | Ultrasound Report ---
ULTRASOUND GUIDED BIOPSY LEFT BREAST WITH MARKING DEVICE INSERTED: 03/02/2023 CLINICAL: Left axillary node biopsy. PATIENT CONSENT: Risks (minor bleeding, infection, vasovagal reaction and repeat procedure), benefits and alternatives were explained to the patient and written informed consent was obtained. Correlation is made to exams dated: 03/02/2023 ultrasound biopsy, 02/23/2023 mammogram, and 02/11/2023 [facility]. An ultrasound guided biopsy using real-time ultrasound was performed for the lymph node located in th e left axillary tail. The skin was prepped in the usual manner. A biopsy needle was placed adjacent to the abnormality under ultrasound guidance. Once the needle was documented to be in the correct l ocation, a specimen was obtained using a BARD biopsy device. A clip was inserted into the biopsy cav ity. The specimen was sent to the laboratory for pathological analysis. IMPRESSION: ULTRASOUND GUIDED BIOPSY MALIGNANT Ultrasound guided biopsy of the lymph node in the left axilla was successful. Pathology indicates ma lignant metastatic to axillary lymph nodes consistent with breast primary. Pathology results are con cordant with imaging findings. A surgical/oncologic consultation is recommended. This exam was interpreted at Station ID: [id number]. Addy Cuevas M.D. crm,aty/:03/06/2023 08:13:12 BI-RADS CATEGORY: () - Unspecified - other recall n/a LATERALITY: (B)
== END 2023-02-23 09:38 | disposition home or self-care (01) ==
LOC: DI 09:37
PROVIDERS: ATTEND Nurse Practitioner Family
DX: C50.412 Malignant neoplasm of upper-outer quadrant of left female breast (principal); C77.3 Secondary and unspecified malignant neoplasm of axilla and upper limb lymph nodes; Z17.1 Estrogen receptor negative status [ER-]
CPT/HCPCS: 19083; 38505; 77065; 88305; 88341; 88342; 88360; J3490

== ENCOUNTER 2023-04-03 11:45 | Outpatient (CLI) | payer MEDICARE, OTHER | END 2023-04-03 12:00 | disposition home or self-care (01) | LOC: LAB.N 11:45 | PROVIDERS: ATTEND Nurse Practitioner | DX: N39.0 Urinary tract infection, site not specified (principal) | CPT/HCPCS: 87077; 87086; 87181 ==

== ENCOUNTER 2023-05-01 08:00 | Outpatient (CLI) | payer MEDICARE, OTHER | END 2023-05-01 23:59 | disposition home or self-care (01) | LOC: LAB 08:00 | PROVIDERS: ATTEND Urology | DX: A49.8 Other bacterial infections of unspecified site (principal) | CPT/HCPCS: 87077; 87086; 87181 ==

== ENCOUNTER 2023-05-26 08:12 | Outpatient (CLI) | payer MEDICARE, OTHER ==
--- NOTE | 2023-05-26 12:53 | DEXA Report ---
PROCEDURE: Dexa Spine and/or Hip INDICATIONS: POST MENOPAUSAL TECHNIQUE: Dual energy x-ray absorptiometry (DXA) was performed on a Enmotus System. Regions measur ed are the AP Spine, femoral neck, and if needed forearm. COMPARISON: DEXA, 01/06/2018 FINDINGS: Lumbar Spine: Bone Mineral Density 1.419 g/cm/cm,T score 2.1. Left Femoral Neck: Bone Mineral Density 0.907 g/cm/cm, T score -0.9. Left Hip: Bone Mineral Density 0.988 g/cm/cm,T score -0.2. (T score greater or equal to -1.0: NORMAL) (T score from -1.1 to -2.4: OSTEOPENIA) (T score less than or equal to -2.5 to: OSTEOPOROSIS) Compared with the last exam, the patient's bone density in lumbar spine or left hip is not significan tly changed. Impression: By WHO criteria, this patient has normal bone density in lumbar spine and left hip. Compared with the last exam, there is no statistically significant change. Patients with diagnosis of osteoporosis or osteopenia should have regular bone mineral density assess ment. For those eligible for Medicare, routine testing is allowed once every 2 years. Testing frequ ency can be increased for patients who have rapidly progressing disease or for those who are receivin g medical therapy to restore bone mass. Reviewed by: El Calloway MD on 05/26/2023 12:52 PM PST Approved by: El Calloway MD on 05/26/2023 12:52 PM PST Station ID: [id number]
== END 2023-05-26 08:13 | disposition home or self-care (01) ==
LOC: DI 08:12
PROVIDERS: ATTEND Nurse Practitioner Family
DX: Z78.0 Asymptomatic menopausal state (principal)

== ENCOUNTER 2023-06-12 08:00 | Outpatient (CLI) | payer MEDICARE, OTHER | END 2023-06-12 23:59 | disposition home or self-care (01) | LOC: LAB 08:00 | PROVIDERS: ATTEND Urology | DX: R39.9 Unspecified symptoms and signs involving the genitourinary system (principal) | CPT/HCPCS: 87086; 87181 ==

== ENCOUNTER 2023-07-07 18:16 | Outpatient (CLI) | payer MEDICARE, OTHER | END 2023-07-07 18:17 | disposition left against medical advice (07) | LOC: EMS 18:16 | DX: R53.1 Weakness (principal) ==

== ENCOUNTER 2023-07-16 21:31 | Outpatient (CLI) | payer MEDICARE, OTHER | END 2023-07-16 21:32 | disposition critical access hospital (66) | LOC: EMS 21:31 | DX: R53.1 Weakness (principal); R63.0 Anorexia; R26.81 Unsteadiness on feet; R11.0 Nausea | CPT/HCPCS: A0425; A0429 ==

== ENCOUNTER 2023-07-16 21:47 | Emergency (ER) | payer MEDICARE, OTHER ==
[2023-07-16 22:20] VITALS: O2SAT 98
[2023-07-16 22:25] LABS: BASOPHILS # (AUTO) 0.1 10^3/uL (0.0-0.1); BASOPHILS % (AUTO) 1.8 %; EOSINOPHILS # (AUTO) 0.3 10^3/uL (0.0-0.7); EOSINOPHILS % (AUTO) 4.6 %; HCT - HEMATOCRIT 30.3 % (37.0-47.0); LYMPHOCYTES # (AUTO) 1.3 10^3/uL (1.5-3.5); LYMPHOCYTES % (AUTO) 23.8 %; MEAN CORPUSCULAR HEMOGLOBIN 31.9 pg (27.0-31.0); MEAN CORPUSCULAR VOLUME 96.8 fL (81.0-99.0); MEAN PLATELET VOLUME 8.9 fL (7.9-10.8); MONOCYTES # (AUTO) 0.7 10^3/uL (0.0-1.0); MONOCYTES % (AUTO) 11.6 %; NEUTROPHILS # (AUTO) 3.2 10^3/uL (1.5-6.6); NEUTROPHILS % (AUTO) 57.1 %; PLT - PLATELET COUNT 441 10^3/uL (130-450); RED BLOOD COUNT 3.13 10^6/uL (4.20-5.40); RED CELL DISTRIBUTION WIDTH 14.6 % (12.0-15.0); WHITE BLOOD COUNT 5.6 x10^3/uL (4.8-10.8)
[2023-07-16] MEDS: SODIUM CHLORIDE 0.9% 1,500 ML IV STA (22:43)
[2023-07-16] MEDS: ONDANSETRON 4 MG/2 ML VIAL IVP STA (22:49)
[2023-07-16 22:55] LABS: ALBUMIN 3.1 g/dL (3.2-5.5); ALBUMIN/GLOBULIN RATIO 1.6 (1.0-2.2); ALKALINE PHOSPHATASE 136 IU/L (42-121); ALT ALANINE AMINOTRANSFERASE 17 IU/L (10-60); AST ASPARTATE AMINOTRANSFERASE 31 IU/L (10-42); BILIRUBIN,TOTAL 0.4 mg/dL (0.2-1.0); BUN - BLOOD UREA NITROGEN 3 mg/dL (6-20); CALCIUM 8.6 mg/dL (8.5-10.3); CARBON DIOXIDE - CO2 25 mmol/L (21-32); CHLORIDE 92 mmol/L (101-111); CREATININE 0.5 mg/dL (0.6-1.3); GFR - MDRD 119 (>89); GLUCOSE 96 mg/dL (74-104); LIPASE < 10 U/L (11-82); POTASSIUM 3.6 mmol/L (3.5-4.5); SODIUM 124 mmol/L (135-145); TOTAL PROTEIN 5.1 g/dL (6.4-8.9)
[2023-07-16] MEDS: FAMOTIDINE 20 MG/2 ML VIAL IVP STA (22:57)
[2023-07-16] MEDS: HYDROmorphone 0.5 MG/0.5 ML SYRINGE IVP STA (22:58)
[2023-07-16 23:03] LABS: BILIRUBIN,URINE NEGATIVE (NEGATIVE); GLUCOSE, URINE (UA) NEGATIVE (NEGATIVE); KETONES,URINE (UA) 15 mg/dL (NEGATIVE); LEUKOCYTE ESTERASE, URINE SMALL (NEGATIVE); NITRITE,URINE NEGATIVE (NEGATIVE); OCCULT BLOOD,URINE MODERATE (NEGATIVE); PROTEIN,URINE 30 mg/dL (NEGATIVE); UROBILINOGEN,URINE 0.2 (NORMAL) E.U./dL (NORMAL)
[2023-07-16 23:04] LABS: CLARITY,URINE CLOUDY (CLEAR)
[2023-07-16 23:20] LABS: BACTERIA,URINE Few /HPF (None Seen); SQUAMOUS EPITHELIAL CELL,UR NONE SEEN (<= Few); WBC CLUMPS,URINE PRESENT; WBC,URINE >25 /HPF (0-5)
--- NOTE | 2023-07-16 23:42 | ED Physician Documentation ---
History of Present Illness - Stated complaint Stated Complaint: WEAKNESS, DEHYDRATION S/P CHEMO - Chief complaint Chief Complaint: General - History obtained from History obtained from: Patient - Additonal information Additional information: 78yF with pmh metastatic triple negative breast cancer s/p 12 weeks of keynote 522 chemotherapy (taxol, carboplatin, keytruda) p/w weakness, feeling dehydrated, and generalized malaise worsening over the past several days. patient states she was dx with URI 1 week ago as well as uti and placed on cipro then switched to macrobid 5 days ago. She has had improvement in urinary symptoms but states she still has green phlegm, has new cough, and new onset nbnb n/v X 1 today. no fever today but she did have fevers this past week with tmax 100.8. Last chemo was 07/08. She canceled her chemo yesterday due to illness/malaise. PD PAST MEDICAL HISTORY - Past Medical History Past Medical History: Yes Cardiovascular: Hypertension, High cholesterol Respiratory: Asthma GI: GERD POULTRY DEBEAKER: Fibroids, Breast cancer - Past Surgical History Past Surgical History: Yes General: Cholecystectomy /POULTRY DEBEAKER: Hysterectomy - Present Medications Home Medications: Ambulatory Orders Medication Instructions Recorded Confirmed Celecoxib [CeleBREX] 200 mg PO DAILY 07/11/14 07/11/14 Cyclobenzaprine [Flexeril] 10 mg PO PRN 07/11/14 07/11/14 Esomeprazole Magnesium [Nexium 20 mg PO DAILY 07/11/14 07/11/14 24Hr] Estrogens, Conjugated [Premarin] 0.3 mg PO DAILY 07/11/14 07/11/14 Montelukast [Singulair] 10 mg PO QPM 07/11/14 07/11/14 Simvastatin 40 mg PO DAILY 07/11/14 07/11/14 Losartan [Cozaar] 50 mg PO DAILY 07/16/23 07/16/23 - Allergies Allergies/Adverse Reactions: Allergies Allergy/AdvReac Type Severity Reaction Status Date / Time codeine Allergy Nausea Verified 07/16/23 22:10 morphine Allergy Itching Verified 07/16/23 22:10 erythromycin base AdvReac Nausea Verified 07/16/23 22:10 - Social History Does the pt smoke?: No Smoking Status: Never smoker Does the pt drink ETOH?: Yes ETOH Use: Wine Does the pt have substance abuse?: No PD ED PE NORMAL - Vitals Vital signs reviewed: Yes - General General: Alert and oriented X 3, No acute distress, Other (uncomfortable appearing elderly woman in NAD) - HEENT HEENT: Atraumatic, PERRL, EOMI, Moist mucous membranes, Pharynx benign - Neck Neck: Supple, no meningeal sign - Cardiac Cardiac: RRR - Respiratory Respiratory: No respiratory distress, Clear bilaterally - Abdomen Abdomen: Non tender, Non distended - Derm Derm: Normal color, Warm and dry - Neuro Neuro: Alert and oriented X 3 - Psych Psych: Normal mood, Normal affect Results - Vitals Vitals: Vital Signs - 24 hr 07/16/23 07/16/23 07/17/23 22:01 22:08 01:00 Temperature 36.9 C Heart Rate 92 93 Respiratory 16 17 18 Rate Blood Pressure 126/68 131/71 H O2 Saturation 98 99 07/17/23 02:00 Temperature Heart Rate 90 Respiratory 16 Rate Blood Pressure 112/69 O2 Saturation 98 Oxygen O2 Source Room air - Labs Labs: Laboratory Tests 07/16/23 07/16/23 07/16/23 21:51 21:51 22:45 WBC 5.6 RBC 3.13 L Hgb 10.0 L Hct 30.3 L MCV 96.8 MCH 31.9 H MCHC 33.0 RDW 14.6 Plt Count 441 MPV 8.9 Neut # (Auto) 3.2 Lymph # (Auto) 1.3 L [place] # (Auto) 0.7 Eos # (Auto) 0.3 Baso # (Auto) 0.1 Absolute Nucleated RBC 0.00 Nucleated RBC % 0.0 Sodium 124 L Potassium 3.6 Chloride 92 L Carbon Dioxide 25 Anion Gap 7.0 BUN 3 L Creatinine 0.5 L Estimated GFR (MDRD) 119 Glucose 96 Calcium 8.6 Total Bilirubin 0.4 AST 31 ALT 17 Alkaline Phosphatase 136 H Total Protein 5.1 L Albumin 3.1 L Globulin 2.0 L Albumin/Globulin Ratio 1.6 Lipase < 10 L Urine Color YELLOW Urine Clarity CLOUDY Urine pH 6.0 Ur Specific [place] 1.015 Urine Protein 30 H Urine Glucose (UA) NEGATIVE Urine Ketones 15 H Urine Occult Blood MODERATE H Urine Nitrite NEGATIVE Urine Bilirubin NEGATIVE Urine Urobilinogen 0.2 (NORMAL) Ur Leukocyte Esterase SMALL H Urine RBC 11-25 H Urine WBC >25 H Urine WBC Clumps PRESENT Ur Squamous Epith Cells NONE SEEN Urine Bacteria Few Ur Microscopic Review INDICATED Urine Culture Comments INDICATED Nasal Adenovirus (PCR) Nasal B. parapertussis DNA (PCR) Nasal Coronavir 229E PCR Nasal Coronavir HKU1 PCR Nasal Coronavir NL63 PCR Nasal Coronavir OC43 PCR Nasal Enterovir/Rhinovir PCR Nasal Influenza B PCR Nasal Influenza A PCR Nasal Parainfluen 1 PCR Nasal Parainfluen 2 PCR Nasal Parainfluen 3 PCR Nasal Parainfluen 4 PCR Nasal RSV (PCR) Nasal B.pertussis DNA PCR Nasal C.pneumoniae (PCR) Ever Human Metapneumo PCR Nasal M.pneumoniae (PCR) Nasal SARS-CoV-2 (PCR) 07/16/23 07/17/23 23:00 05:37 WBC RBC Hgb Hct MCV MCH MCHC RDW Plt Count MPV Neut # (Auto) Lymph # (Auto) [place] # (Auto) Eos # (Auto) Baso # (Auto) Absolute Nucleated RBC Nucleated RBC % Sodium 130 L Potassium Chloride Carbon Dioxide Anion Gap BUN Creatinine Estimated GFR (MDRD) Glucose Calcium Total Bilirubin AST ALT Alkaline Phosphatase Total Protein Albumin Globulin Albumin/Globulin Ratio Lipase Urine Color Urine Clarity Urine pH Ur Specific [place] Urine Protein Urine Glucose (UA) Urine Ketones Urine Occult Blood Urine Nitrite Urine Bilirubin Urine Urobilinogen Ur Leukocyte Esterase Urine RBC Urine WBC Urine WBC Clumps Ur Squamous Epith Cells Urine Bacteria Ur Microscopic Review Urine Culture Comments Nasal Adenovirus (PCR) NOT DETECTED Nasal B. parapertussis DNA (PCR) NOT DETECTED Nasal Coronavir 229E PCR NOT DETECTED Nasal Coronavir HKU1 PCR NOT DETECTED Nasal Coronavir NL63 PCR NOT DETECTED Nasal Coronavir OC43 PCR NOT DETECTED Nasal Enterovir/Rhinovir PCR NOT DETECTED Nasal Influenza B PCR NOT DETECTED Nasal Influenza A PCR NOT DETECTED Nasal Parainfluen 1 PCR NOT DETECTED Nasal Parainfluen 2 PCR NOT DETECTED Nasal Parainfluen 3 PCR NOT DETECTED Nasal Parainfluen 4 PCR NOT DETECTED Nasal RSV (PCR) NOT DETECTED Nasal B.pertussis DNA PCR NOT DETECTED Nasal C.pneumoniae (PCR) NOT DETECTED Ever Human Metapneumo PCR NOT DETECTED Nasal M.pneumoniae (PCR) NOT DETECTED Nasal SARS-CoV-2 (PCR) NOT DETECTED PD Medical Decision Making - ED course ED course: 78yF with metastatic breast cancer on active chemo, recently diagnosed with URI and uti, on macrobid, p/w malaise, weakness, n/v/d, cough, and concern for dehydration. Patient is well appearing with normal vital signs and benign physical exam. CBC, abdominal panel, u/a, urine cx, blood cultures, RVP and cxr ordered. Patient provided with IV morphine for body aches with improvement, 1.5L NS for dehydration, IV pepcid/zofran for nausea with improvement. Hb 10 on labwork with previous baseline normal prior to chemo. Likely chemotherapy induced anemia. u/a shows small leukocyte esterase and large blood. She is on day 4 of macrobid and her culture sensitivities show this is appropriate medication. she is asymptomatic at present. Plan to continue macrobid and send urine for culture. Sodium 124, previously 136 in Jun 2022. this is likely 2/2 dehydration. CXR negative. 12:45am - patient had normal o2 sat earlier but is now having asymptomatic desaturation on the monitor to mid80s while lying in bed talking with staff. RVP was negative but still suspect viral etiology for her URI symptoms. patient is not having hemoptysis, leg swelling, soa, cp or pleurisy. 2L nasal cannula applied. Additional 1.5L NS ordered as well at 250/h. Repeat sodium level at 5:30am was 130. Patient states she would like to go home if possible and can have her pick her up in the morning. Plan for close f/u with her oncology team at [facility]. Strict return precautions discussed. Departure - Departure Disposition: 01 Home, Self Care Clinical Impression: Hyponatremia, Anemia, UTI (urinary tract infection), URI (upper respiratory infection) Condition: Stable Instructions: ED URI Viral Comments: You were seen in the emergency department for dehydration and weakness. Your sodium level was 124, which is lower than usual, and improved to 130 after fluids. You also have anemia, which is new from 1 year ago. Please follow-up with your oncologist and return to the emergency department if you have any new or worsening symptoms or other concerns. Forms: PCP List
--- NOTE | 2023-07-16 23:56 | XRAY Report ---
PROCEDURE: Chest 2V INDICATIONS: dry cough TECHNIQUE: 2 views of the chest were acquired. COMPARISON: To 3:15 FINDINGS: Surgical changes and devices: Right IJ Mediport. Cholecystectomy clips. Lungs and pleura: No pleural effusions or pneumothorax. Lungs are clear. Mediastinum: Mediastinal contours appear normal. Heart size is normal. Bones and chest wall: No suspicious bony lesions. Overlying soft tissues appear unremarkable. IMPRESSION: No acute cardiopulmonary process. Reviewed by: Shreya Kim MD on 07/16/2023 11:55 PM PST Approved by: Shreya Kim MD on 07/16/2023 11:55 PM [facility] Station ID: [id number]
[2023-07-17 00:04] LABS: B. PARAPERTUSSIS- RESP PCR PAN NOT DETECTED; B. PERTUSSIS- RESP PCR PANEL NOT DETECTED; C. PNEUMONIAE- RESP PCR PANEL NOT DETECTED; CORONAVIRUS 229E-RESP PCR NOT DETECTED; CORONAVIRUS HKU1-RESP PCR NOT DETECTED; CORONAVIRUS NL63-RESP PCR NOT DETECTED; CORONAVIRUS OC43-RESP PCR NOT DETECTED; HUMAN METAPNEUMOVIRUS NOT DETECTED; INFLUENZA A- RESP PCR PANEL NOT DETECTED; INFLUENZA B - RESP PCR PANEL NOT DETECTED; M. PNEUMONIAE- RESP PCR PANEL NOT DETECTED; PARAINFLUENZA VIRUS 1 NOT DETECTED; PARAINFLUENZA VIRUS 2 NOT DETECTED; PARAINFLUENZA VIRUS 3 NOT DETECTED; PARAINFLUENZA VIRUS 4 NOT DETECTED; RHINOVIRUS/ENTEROVIRUS NOT DETECTED; RSV- RESP PCR PANEL NOT DETECTED; SARS-CoV-2 -RESP PCR PANEL NOT DETECTED
[2023-07-17] MEDS: SODIUM CHLORIDE 0.9% 1,500 ML IV STA (01:40)
[2023-07-17 02:11] VITALS: BP 112/69
[2023-07-17] MEDS: ACETAMINOPHEN 325 MG TABLET PO STA (03:36)
[2023-07-17] MEDS: LORazepam 1 MG TABLET PO STA (03:38)
== END 2023-07-17 06:45 | disposition home or self-care (01) ==
LOC: EDUNIT# → ED 21:47
DX: J06.9 Acute upper respiratory infection, unspecified (principal); E87.1 Hypo-osmolality and hyponatremia; D64.9 Anemia, unspecified; N39.0 Urinary tract infection, site not specified; I10 Essential (primary) hypertension; C50.919 Malignant neoplasm of unspecified site of unspecified female breast; C79.9 Secondary malignant neoplasm of unspecified site
CPT/HCPCS: 36415; 71046; 80053; 81001; 83690; 84295; 85025; 87040; 87086; 87633; 96374; 96375; 99284; A9270; J1170; J8499; 81003

== ENCOUNTER 2023-07-19 13:35 | Outpatient (CLI) | payer MEDICARE, OTHER | END 2023-07-19 13:36 | disposition critical access hospital (66) | LOC: EMS 13:35 | DX: R53.81 Other malaise (principal); R63.0 Anorexia; R50.9 Fever, unspecified; R11.0 Nausea | CPT/HCPCS: A0425; A0429 ==

== ENCOUNTER 2023-07-19 13:54 | Inpatient (IN) | payer MEDICARE, OTHER ==
--- NOTE | 2023-07-19 14:09 | ED Physician Documentation ---
PD HPI FEVER - Stated complaint Stated Complaint: FEVER - History obtained from History obtained from: Patient, Family, EMS - Additional information Additional information: 78-year-old woman with history of triple negative breast cancer who has been treated so far at [facility] with Taxol, Paraplatin, and Keytruda. Last treatment was about 2 weeks ago. Presents by ambulance for on and off fevers for the last 2 weeks associated with very poor appetite. She had a recent UTI which was initially treated with Cipro and then changed to Macrobid. Last urine culture from 3 days ago was no growth. She has some sinus and ear pain, intermi ttent diarrhea and persistent cough. Highest temp was 101. PD PAST MEDICAL HISTORY - Past Medical History Cardiovascular: Hypertension, High cholesterol Respiratory: Asthma GI: GERD CHANGE MANAGEMENT ANALYST: Fibroids, Breast cancer - Past Surgical History Past Surgical History: Yes General: Cholecystectomy /CHANGE MANAGEMENT ANALYST: Hysterectomy - Present Medications Home Medications: Ambulatory Orders Medication Instructions Recorded Confirmed Celecoxib [CeleBREX] 200 mg PO DAILY PRN 07/11/14 07/19/23 Cyclobenzaprine [Flexeril] 10 - 20 mg PO HS PRN 07/11/14 07/19/23 Esomeprazole Magnesium [Nexium 20 mg PO DAILY 07/11/14 07/19/23 24Hr] Montelukast [Singulair] 10 mg PO DAILY 07/11/14 07/19/23 Simvastatin 40 mg PO DAILY 07/11/14 07/19/23 Losartan [Cozaar] 50 mg PO DAILY 07/16/23 07/19/23 Amlodipine Besylate [Norvasc] 2.5 mg PO BID 07/19/23 07/19/23 Gabapentin [Neurontin] 300 mg PO HS 07/19/23 07/19/23 - Allergies Allergies/Adverse Reactions: Allergies Allergy/AdvReac Type Severity Reaction Status Date / Time codeine Allergy Nausea Verified 07/16/23 22:10 morphine Allergy Itching Verified 07/16/23 22:10 erythromycin base AdvReac Nausea Verified 07/16/23 22:10 - Social History Does the pt smoke?: No Smoking Status: Never smoker Does the pt drink ETOH?: Yes Does the pt have substance abuse?: No PD ED PE NORMAL - Vitals Vital signs reviewed: Yes - General General: Alert and oriented X 3, No acute distress - HEENT HEENT: PERRL, EOMI, Pharynx benign (Alopecia), Other - Neck Neck: Supple, no meningeal sign, No bony TTP - Cardiac Cardiac: RRR (Mild resting tachycardia), No murmur - Respiratory Respiratory: No respiratory distress, Clear bilaterally - Abdomen Abdomen: Soft, Non tender - Derm Derm: No rash - Neuro Neuro: Alert and oriented X 3, Normal speech Results - Vitals Vitals: Vital Signs - 24 hr 07/19/23 07/19/23 07/19/23 14:06 15:41 16:00 Temperature 37.7 C Heart Rate 112 H 105 H 84 Respiratory 16 16 16 Rate Blood Pressure 103/65 111/57 L 121/69 O2 Saturation 96 100 100 07/19/23 07/19/23 07/19/23 16:30 17:30 18:30 Temperature Heart Rate 102 H 105 H 103 H Respiratory 16 16 16 Rate Blood Pressure 113/59 L 117/72 109/55 L O2 Saturation 97 94 92 07/19/23 19:12 Temperature Heart Rate 105 H Respiratory 15 Rate Blood Pressure 95/48 L O2 Saturation 92 Oxygen O2 Source Room air - EKG (time done) 1429 EKG releavant findings:: EKG personally interpreted by author of this note. Relevant findings are: Rate: Rate (enter#) (100) Rhythm: Sinus tachycardia [place]: Normal Intervals: Normal MD QRS: Normal Ischemia: Other (Q waves in 2 3 and F as well as V1 through V5). No: ST elevation c/w ischemia - Labs Labs: Laboratory Tests 07/19/23 07/19/23 07/19/23 14:20 14:22 14:22 WBC 7.1 RBC 3.20 L Hgb 10.2 L Hct 31.5 L MCV 98.4 MCH 31.9 H MCHC 32.4 RDW 15.1 H Plt Count 353 MPV 8.1 Neut # (Auto) 4.2 Lymph # (Auto) 1.7 [place] # (Auto) 0.8 Eos # (Auto) 0.2 Baso # (Auto) 0.1 Absolute Nucleated RBC 0.00 Nucleated RBC % 0.0 Sodium 127 L Potassium 3.0 L Chloride 93 L Carbon Dioxide 27 Anion Gap 7.0 BUN 4 L Creatinine 0.6 Estimated GFR (MDRD) 97 Glucose 148 H Lactic Acid Calcium 8.9 Total Bilirubin 0.3 AST 20 ALT 11 Alkaline Phosphatase 139 H Total Protein 5.0 L Albumin 3.1 L Globulin 1.9 L Albumin/Globulin Ratio 1.6 Urine Color Urine Clarity Urine pH Ur Specific [place] Urine Protein Urine Glucose (UA) Urine Ketones Urine Occult Blood Urine Nitrite Urine Bilirubin Urine Urobilinogen Ur Leukocyte Esterase Urine RBC Urine WBC Ur Epithelial Cells Ur Squamous Epith Cells Urine Bacteria Urine Culture Comments Nasal Adenovirus (PCR) NOT DETECTED Nasal B. parapertussis DNA (PCR) NOT DETECTED Nasal Coronavir 229E PCR NOT DETECTED Nasal Coronavir HKU1 PCR NOT DETECTED Nasal Coronavir NL63 PCR NOT DETECTED Nasal Coronavir OC43 PCR NOT DETECTED Nasal Enterovir/Rhinovir PCR NOT DETECTED Nasal Influenza B PCR NOT DETECTED Nasal Influenza A PCR NOT DETECTED Nasal Parainfluen 1 PCR NOT DETECTED Nasal Parainfluen 2 PCR NOT DETECTED Nasal Parainfluen 3 PCR NOT DETECTED Nasal Parainfluen 4 PCR NOT DETECTED Nasal RSV (PCR) NOT DETECTED Nasal B.pertussis DNA PCR NOT DETECTED Nasal C.pneumoniae (PCR) NOT DETECTED Ever Human Metapneumo PCR NOT DETECTED Nasal M.pneumoniae (PCR) NOT DETECTED Nasal SARS-CoV-2 (PCR) NOT DETECTED 07/19/23 07/19/23 14:22 15:53 WBC RBC Hgb Hct MCV MCH MCHC RDW Plt Count MPV Neut # (Auto) Lymph # (Auto) [place] # (Auto) Eos # (Auto) Baso # (Auto) Absolute Nucleated RBC Nucleated RBC % Sodium Potassium Chloride Carbon Dioxide Anion Gap BUN Creatinine Estimated GFR (MDRD) Glucose Lactic Acid 1.1 Calcium Total Bilirubin AST ALT Alkaline Phosphatase Total Protein Albumin Globulin Albumin/Globulin Ratio Urine Color YELLOW Urine Clarity HAZY Urine pH 6.0 Ur Specific [place] <=1.005 Urine Protein NEGATIVE Urine Glucose (UA) NEGATIVE Urine Ketones 40 H Urine Occult Blood TRACE-INTA Urine Nitrite NEGATIVE Urine Bilirubin NEGATIVE Urine Urobilinogen 0.2 (NORMAL) Ur Leukocyte Esterase SMALL H Urine RBC 0-5 Urine WBC >25 H Ur Epithelial Cells FEW Transitional Ur Squamous Epith Cells RARE Squamous Urine Bacteria Few Urine Culture Comments INDICATED Nasal Adenovirus (PCR) Nasal B. parapertussis DNA (PCR) Nasal Coronavir 229E PCR Nasal Coronavir HKU1 PCR Nasal Coronavir NL63 PCR Nasal Coronavir OC43 PCR Nasal Enterovir/Rhinovir PCR Nasal Influenza B PCR Nasal Influenza A PCR Nasal Parainfluen 1 PCR Nasal Parainfluen 2 PCR Nasal Parainfluen 3 PCR Nasal Parainfluen 4 PCR Nasal RSV (PCR) Nasal B.pertussis DNA PCR Nasal C.pneumoniae (PCR) Ever Human Metapneumo PCR Nasal M.pneumoniae (PCR) Nasal SARS-CoV-2 (PCR) - Rads (name of study) single view chest x-ray is unremarkable Relevant Findings:: Final report received, EMP independent interpretation of test CT A/P- diffuse mild colitis, diverticulosis, reactive thickening bladder wall Relevant Findings:: Final report received, EMP independent interpretation of test PD Medical Decision Making - ED course ED course: 78-year-old woman on chemotherapy for triple negative breast cancer presents with weakness to the point where she cannot walk, really has not eaten anything in almost 2 weeks and very poor appetite. She has a known ESBL E. coli UTI and was initially on Cipro and switched over to Macrobid. Given the systemic nature of her symptoms Macrobid would likely cause a treatment failure given its mechanism of action. She also has ongoing frequent diarrhea without much warning and some incontinent episodes. Workup in the emergency department demonstrates normal white count at 7, stable anemia with hemoglobin of 10 from prior value, chemistry is notable for stable hyponatremia and hypokalemia which was repleted both IV and orally. Urine still showing white cells and respiratory viral panel negative. No obstruction on CT which did show some mild colitis. Given her previous urine culture, we would expect treatment failures with nitrofurantoin given her systemic symptoms and mechanism of action and is resistances to multiple other medications. Will give sulfa here given availability to switch to oral option. She is quite weak. Seems reasonable to observe her and watch her labs while on antibiotics. Telehealth consult placed at 7:06 PM. Departure - Departure Disposition: [facility] DC/Xfer Clinical Impression: Pyelonephritis due to Escherichia coli, Muscle weakness, Chemotherapy-induced diarrhea Condition: Serious Comments: NOTE TO HIM: Please CC records from this visit to: Subha Bal MD [facility]
[2023-07-19] MEDS: SODIUM CHLORIDE 0.9% 1,000 ML IV STA (14:19)
[2023-07-19 14:32] LABS: BASOPHILS # (AUTO) 0.1 10^3/uL (0.0-0.1); BASOPHILS % (AUTO) 1.6 %; EOSINOPHILS # (AUTO) 0.2 10^3/uL (0.0-0.7); HCT - HEMATOCRIT 31.5 % (37.0-47.0); HGB - HEMOGLOBIN 10.2 g/dL (12.0-16.0); LYMPHOCYTES # (AUTO) 1.7 10^3/uL (1.5-3.5); LYMPHOCYTES % (AUTO) 23.5 %; MEAN CORPUSCULAR HEMOGLOBIN 31.9 pg (27.0-31.0); MEAN CORPUSCULAR HGB CONC 32.4 g/dL (32.0-36.0); MEAN CORPUSCULAR VOLUME 98.4 fL (81.0-99.0); MEAN PLATELET VOLUME 8.1 fL (7.9-10.8); MONOCYTES # (AUTO) 0.8 10^3/uL (0.0-1.0); MONOCYTES % (AUTO) 11.5 %; NEUTROPHILS # (AUTO) 4.2 10^3/uL (1.5-6.6); NEUTROPHILS % (AUTO) 59.7 %; PLT - PLATELET COUNT 353 10^3/uL (130-450); RED CELL DISTRIBUTION WIDTH 15.1 % (12.0-15.0); WHITE BLOOD COUNT 7.1 x10^3/uL (4.8-10.8)
[2023-07-19 14:49] LABS: ALBUMIN 3.1 g/dL (3.2-5.5); ALBUMIN/GLOBULIN RATIO 1.6 (1.0-2.2); BILIRUBIN,TOTAL 0.3 mg/dL (0.2-1.0); CALCIUM 8.9 mg/dL (8.5-10.3); CREATININE 0.6 mg/dL (0.6-1.3)
[2023-07-19] MEDS ORDERED: iohexoL-300 100 ML VIAL ONE (15:01)
[2023-07-19 15:34] LABS: B. PARAPERTUSSIS- RESP PCR PAN NOT DETECTED; B. PERTUSSIS- RESP PCR PANEL NOT DETECTED; C. PNEUMONIAE- RESP PCR PANEL NOT DETECTED; CORONAVIRUS 229E-RESP PCR NOT DETECTED; CORONAVIRUS HKU1-RESP PCR NOT DETECTED; CORONAVIRUS NL63-RESP PCR NOT DETECTED; CORONAVIRUS OC43-RESP PCR NOT DETECTED; HUMAN METAPNEUMOVIRUS NOT DETECTED; INFLUENZA A- RESP PCR PANEL NOT DETECTED; INFLUENZA B - RESP PCR PANEL NOT DETECTED; M. PNEUMONIAE- RESP PCR PANEL NOT DETECTED; PARAINFLUENZA VIRUS 1 NOT DETECTED; PARAINFLUENZA VIRUS 2 NOT DETECTED; PARAINFLUENZA VIRUS 3 NOT DETECTED; PARAINFLUENZA VIRUS 4 NOT DETECTED; RHINOVIRUS/ENTEROVIRUS NOT DETECTED; RSV- RESP PCR PANEL NOT DETECTED; SARS-CoV-2 -RESP PCR PANEL NOT DETECTED
[2023-07-19 16:06] LABS: BILIRUBIN,URINE NEGATIVE (NEGATIVE); GLUCOSE, URINE (UA) NEGATIVE (NEGATIVE); KETONES,URINE (UA) 40 mg/dL (NEGATIVE); LEUKOCYTE ESTERASE, URINE SMALL (NEGATIVE); NITRITE,URINE NEGATIVE (NEGATIVE); OCCULT BLOOD,URINE TRACE-INTA (NEGATIVE); PROTEIN,URINE NEGATIVE (NEGATIVE); UROBILINOGEN,URINE 0.2 (NORMAL) E.U./dL (NORMAL)
[2023-07-19] MEDS: KETOROLAC 15 MG/ML VIAL IVP STA (16:06)
[2023-07-19 16:07] LABS: CLARITY,URINE HAZY (CLEAR)
[2023-07-19] MEDS: POTASSIUM BICARB 25 MEQ TABLET PO STA (16:07)
[2023-07-19] MEDS: iohexoL-300 100 ML VIAL IVP ONE (16:08)
[2023-07-19 16:16] LABS: BACTERIA,URINE Few /HPF (None Seen); EPITHELIAL CELLS,UR FEW Transitional /HPF (<= Few); RBC,URINE 0-5 /HPF (0-5); SQUAMOUS EPITHELIAL CELL,UR RARE Squamous (<= Few); WBC,URINE >25 /HPF (0-5)
[2023-07-19] MEDS: LACTATED RINGERS 1,000 ML IV STA (16:23)
--- NOTE | 2023-07-19 16:27 | XRAY Report ---
PROCEDURE: Chest 1V INDICATIONS: cough TECHNIQUE: One view of the chest was acquired. COMPARISON: 07/16/2023. FINDINGS: Surgical changes and devices: Right chest wall Port-A-Cath tip is in SVC. Lungs and pleura: No pleural effusions or pneumothorax. Lungs are clear. Mediastinum: Mediastinal contours appear normal. Heart size is enlarged. Bones and chest wall: No suspicious bony lesions. Overlying soft tissues appear unremarkable. IMPRESSION: No acute cardiopulmonary process. Reviewed by: Adam Kc MD on 07/19/2023 4:25 PM PST Approved by: Adam Kc MD on 07/19/2023 4:25 PM PST Station ID: [id number]
--- NOTE | 2023-07-19 17:26 | CT Report ---
PROCEDURE: CT abdomen and pelvis with contrast INDICATIONS: feq uti, fuo, iv only TECHNIQUE: Helical axial CT of the abdomen and pelvis was obtained after intravenous contrast adminis tration and reformatted in multiple planes. Radiation dose reduction was achieved using automated exp osure control or adjustment of mA and/or kV according to patient size. COMPARISON: None FINDINGS: Lower thorax: The lung bases are clear. Heart size normal. Smallhiatal hernia. Liver: Hepatic parenchyma is diffusely decreased in attenuation without focal mass lesion. Biliary system: Cholelithiasis Pancreas: Unremarkable without mass or inflammation evident. Spleen: Normal in size and density. Adrenals: Normal morphology and density. Reproductive system: Hysterectomy Urinary system: Normal renal size and attenuation. No renal calculi, hydronephrosis, or solid mass p resent. Irregular bladder wall thickening adjacent to the colon is probably reactive Gastrointestinal system: Diffuse colonic wall thickening and mild inflammatory change noted througho ut the colon. No pneumatosis. Multiple diverticula arise from the sigmoid colon. No obstruction or ab scess present. Appendix: No findings to suggest acute appendicitis. Peritoneal spaces: No mesenteric or retroperitoneal adenopathy. No free air. No free fluid. Vasculature: Atherosclerotic calcification of the abdominal aorta without evidence of aneurysm. Abdominal wall: Small left inguinal hernia contains fat without bowel involvement. Small periumbilica l hernia also contains fat Musculoskeletal: Normal bone mineralization. No acute fractures. Degenerative disc disease and arth ropathy IMPRESSION: Diffuse mild probable colitis. Diffuse wall thickening and suggestion of mild pericolonic inflammator y change noted to. No obstruction or abscess present. Sigmoid diverticulosis without focal diverticul itis. Asymmetric bladder wall thickening adjacent to loops of colon probably reactive. Reviewed by: Sushil Logan MD on 07/19/2023 4:25 PM [place] Approved by: Sushil Logan MD on 07/19/2023 4:25 PM [place] Station ID: [id number]
[2023-07-19] MEDS: SMX/TMP 800MG/160MG 10ML 20 ML in DEXTROSE 5% 500 ML IV ONE (19:14)
[2023-07-19] MEDS: ACETAMINOPHEN 500 MG TABLET PO STA (20:14)
--- NOTE | 2023-07-19 20:51 | HISTORY & PHYSICAL EXAMINATION ---
History and Physical - History and Physical fegver,generalized weakness, no energy, Pt is a 78yo male hx of htn,hyperlipidemia tripple negatived breast ca on chemo every thursday except last 2,presenting to ED with CC of fever,chills,no energy ongoing uti with ESBL ecoli. Pt was treated with cipro, bactrim,macrobid with no improvements,. Persistent of symptoms prompted her to seek medical attention.In the ED afebrile,UA suggestive of UTI.Initial plan was to give iv bactrim and send home. Over all mildly tachycardic,soft bp,normal lactate. DW with ED attending for the need to treat ESBL with merem.I evaluated pt through zoom. She appeared comfortable,awake and alert verbalizing appropriately.comfortable.Denies any belly pain,poor appetitie,no headaches. General appearance comfortable HEENT NC/AT CVS mildly tachycardi, Chest CTAB/L, no wheezing,no crackles ABD soft NT BS positive EXT no edema Assessment ESBL uti generalize malais/ambulatory dysfunction Hyponatremia Hypokalemia HTN HLD Breast ca on chemo PLAN Will admit to [facility] under hospitalist service Initiate iv abx merem 500mg iv q8hrs IV fluids NS 100ml/hr zojfran as needed for nausea AM labs resume home medications FU UC Heparin 5000u sc q12hrs PT/OT evaluation nutrition consult replet K Plan DW pt answered all questions.
[2023-07-19] MEDS: GABAPENTIN 100 MG CAPSULE PO SCH (21:21)
[2023-07-19] MEDS: POTASSIUM CHLORIDE 20 MEQ TABLET PO STA (21:22)
[2023-07-19] MEDS: SODIUM CHLORIDE 0.9% 1,000 ML IV SCH (21:25)
[2023-07-19] MEDS: ONDANSETRON 4 MG/2 ML VIAL IVP SCH (21:27)
[2023-07-19] MEDS: HEPARIN 5,000 UNIT/ML VIAL SUBQ SCH (21:28)
[2023-07-19] MEDS: amLODIPine 5 MG TABLET PO SCH (21:33)
[2023-07-19] MEDS: MEROPENEM 500 MG in SODIUM CHLORIDE 0.9% MINIBAG 100 ML IV SCH (21:57)
[2023-07-20] MEDS: SODIUM CHLORIDE FLUSH 0.9% 10 ML SYRINGE IVP SCH (00:57)
[2023-07-20] MEDS: CELECOXIB 100 MG CAPSULE PO PRN (01:31)
[2023-07-20 02:41] LABS: CALCIUM 8.1 mg/dL (8.5-10.3); CREATININE 0.5 mg/dL (0.6-1.3); POTASSIUM 3.5 mmol/L (3.5-4.5)
--- NOTE | 2023-07-20 07:41 | PROVIDER PROGRESS NOTE ---
Assessment/Plan - Problem List (1) Hypotension Assessment/Plan: Her BP is as low as 84/52 today This is probably multifactorial: From dehydration due to poor oral intake for a week plus her diarrhea, possibly from sepsis, and also from taking Losartan and Amlodipine Plan: I will stop amlodipine and losartan Continue with IV saline hydration Check lactic acid level, follow WBC daily Treat her infection I updated the and the patient's brother who were at bedside today (2) Failure of outpatient treatment Assessment/Plan: Based on her ESBL-producing E. coli's sensitivities, and resistances, as an outpt she was put on cipro, bactrim, macrobid with no improvements Macrobid, from its mechanism of action, is not expected to be a good choice of antibiotic Plan: Continue with IV meropenem Will start a probiotic (3) UTI due to extended-spectrum beta lactamase (ESBL) producing Escherichia coli Assessment/Plan: Her July 10, 2023 urine culture grew ESBL-producing E. coli. She was on empiric Cipro, bactrim, then changed to Macrobid. With the mechanism of action it was not a good choice despite showing sensitivity in the urine culture information. Blood and urine cultures were resent from the ER yesterday Plan: Continue with iv Meropenam. I discussed Meropenam dosing with pharmacy today Await new blood culture and urine culture results (4) Nausea, vomiting and diarrhea Assessment/Plan: Likely multifactorial: From being on chemotherapy, from having an infection. Her last BM was liquidy and was 2 days ago, no BMs yesterday or today Plan: Continue with IV fluids Change her regular diet to a bland and pureed diet for bowel rest Continue the as needed Zofran Nutrition consult. I am considering PPN use. (5) Colitis Assessment/Plan: Her CT abdomen/pelvis showed diffuse mild colonic inflammation. Her last BM was liquidy and it was 2 days ago. No BMs at all yesterday or today Plan: I will de-escalate the Reg diet ordered to a more easily digestible diet, she agrres, will change to pureed If diarrhea redevelops, will get C. difficile stool test, since she has been on antibiotics and could have C diff Nutrition consult (6) Hyponatremia Assessment/Plan: Likely from losses in vomiting and diarrhea, and from poor oral intake for a week Plan: Check urine sodium to eval for SIADH Continue hydration with IV NS Follow BMP every 12 hours ordered to replace serum sodium 6 to 8 mEq every 24 hour (7) Abnormal EKG Assessment/Plan: Her EKG shows inferior Q waves and anterior Q waves. Plan: Obtain an Echo to evaluate for regional wall motion abnormalities and calculate her EF If she has a depressed EF then the saline rehydration volume needs to be carefully watched (8) Anemia Assessment/Plan: Hemoglobin is 10. Expected to be lower as we continue with IV hydration from hemodilution Plan: I will check her B12, folate levels and iron stores and replace if low Follow CBC daily, transfuse if hemoglobin drops below 7 (9) Hx of essential hypertension Assessment/Plan: As per history. She was ordered to resume her losartan and amlodipine here but is hypotensive today Plan: I will stop the amlodipine and losartan dosing (10) Carcinoma of breast treated with adjuvant chemotherapy Assessment/Plan: As per history. She has tripple negative breast CA and is on chemo at [facility] every Thursday except none the last 2 Thu. (11) Chronic pain Assessment/Plan: She gets headaches with spasms in her neck muscles and uses Flexeril. She gets left arm pain and right femur pain which she thinks is from her chemotherapy for which she takes Celebrex Plan: I will stop the oral Celebrex but put her on Toradol IV Resume her home Flexeril dose Tylenol can also be used - Current Meds Current Meds: Current Medications Generic Name Dose Route Start Last Admin Trade Name Elmerq PRN Reason Stop Dose Admin Celecoxib 200 mg 07/19/23 20:27 07/20/23 01:31 Celecoxib 100 Mg Capsule PO 200 mg DAILY PRN Administration PAIN 5-7 Gabapentin 300 mg 07/19/23 21:00 07/19/23 21:21 Gabapentin 100 Mg Capsule PO 300 mg HS ARLENE Administration Sodium Chloride 1,000 mls @ 100 mls/hr 07/19/23 21:00 07/20/23 07:34 Normal Saline 0.9% IV 100 mls/hr .Q10H ARLENE Administration Sodium Chloride 10 ml 07/20/23 01:00 07/20/23 00:57 Sodium Chloride Flush 0.9% 10 Ml Syringe IVP Not Given 0100,0900,1700 ARLENE - Lab Result Fish Bone Diagrams: 07/20/23 07:45 07/20/23 16:09 - Other Other Results/Comments: Attestation: The patient is expected to be hospitalized for greater than 2 mi dnights and is expected to be discharged or transferred to another facility within 96 hours: Yes. - Additional Planning My Orders: My Active Orders 07/20/23 CBC - COMP BLD CT W/AUTO DIFF [HEME] Stat 07/20/23 07:33 LACTIC ACID, VENOUS [CHEM] Stat 07/20/23 07:35 Ondansetron Inj [Zofran Inj] 4 mg IVP Q4HR PRN 07/20/23 07:36 amLODIPine [Norvasc] 2.5 mg PO BID 07/20/23 08:00 Meropenem [Merrem] 500 mg Sodium Chloride 0.9% Minibag [Normal Saline 0.9% Minibag] 100 ml IV Q8H 07/20/23 09:00 Losartan [Cozaar] 50 mg PO DAILY 07/20/23 21:00 Atorvastatin [Lipitor] 20 mg PO QPM Montelukast [Singulair] 10 mg PO QPM Subjective - Subjective Patient Reports: Nausea, Pain (Has a headache and neck spasms) Objective Vital Signs: Vital Signs - 24 hr 07/19/23 07/19/23 07/19/23 14:06 15:41 16:00 Temperature 37.7 C Heart Rate 112 H 105 H 84 Heart Rate [ Brachial] Respiratory 16 16 16 Rate Blood Pressure 103/65 111/57 L 121/69 Blood Pressure [Right Brachial artery] O2 Saturation 96 100 100 If not protocol : Oxygen Flow, liters/minute 07/19/23 07/19/23 07/19/23 16:30 17:30 18:30 Temperature Heart Rate 102 H 105 H 103 H Heart Rate [ Brachial] Respiratory 16 16 16 Rate Blood Pressure 113/59 L 117/72 109/55 L Blood Pressure [Right Brachial artery] O2 Saturation 97 94 92 If not protocol : Oxygen Flow, liters/minute 07/19/23 07/19/23 07/19/23 19:12 20:00 20:30 Temperature 37.3 C Heart Rate 105 H 88 94 Heart Rate [ Brachial] Respiratory 15 16 16 Rate Blood Pressure 95/48 L 109/55 L 112/60 Blood Pressure [Right Brachial artery] O2 Saturation 92 99 98 If not protocol 1 : Oxygen Flow, liters/minute 07/19/23 07/19/23 07/19/23 21:00 21:30 22:00 Temperature Heart Rate 98 98 93 Heart Rate [ Brachial] Respiratory 18 16 21 Rate Blood Pressure 106/54 L 108/59 L 96/56 L Blood Pressure [Right Brachial artery] O2 Saturation 93 95 95 If not protocol 2 2 2 : Oxygen Flow, liters/minute 07/19/23 07/19/23 07/19/23 22:30 23:11 23:30 Temperature Heart Rate 91 94 92 Heart Rate [ Brachial] Respiratory 21 18 19 Rate Blood Pressure 102/55 L 95/51 L 90/52 L Blood Pressure [Right Brachial artery] O2 Saturation 93 95 94 If not protocol 2 2 2 : Oxygen Flow, liters/minute 07/20/23 07/20/23 07/20/23 00:00 00:30 00:55 Temperature 36.6 C Heart Rate 91 97 Heart Rate [ Brachial] Respiratory 16 20 16 Rate Blood Pressure 87/56 L 92/70 Blood Pressure 84/52 L [Right Brachial artery] O2 Saturation 98 97 96 If not protocol 2 2 : Oxygen Flow, liters/minute 07/20/23 07/20/23 07/20/23 01:25 01:30 01:34 Temperature Heart Rate Heart Rate [ 90 Brachial] Respiratory Rate Blood Pressure Blood Pressure 104/62 [Right Brachial artery] O2 Saturation If not protocol 2 2 : Oxygen Flow, liters/minute Oxygen O2 Source Nasal cannula I&O (Last 24 Hrs): Intake and Output Totals x24h 07/18/23 07/19/23 07/20/23 23:59 23:59 23:59 Intake Total 2620 1300 Output Total 200 Balance 2620 1100 General: Alert, Mild distress (From her headache) HEENT: EOMI, Other (Alopecia. Dry oral mucosa) Neuro: Alert, Non Focal Cardiovascular: Regular rate, No murmurs Respiratory: No respiratory distress, Breath sounds nml Abdomen: Soft, No tenderness, Other (Hyperactive bowel sounds) Extremities: No clubbing, No edema, No tenderness/swelling - Results Results: Laboratory Results WBC 7.1 x10^3/uL (4.8-10.8) 07/19/23 14:22 RBC 3.20 10^6/uL (4.20-5.40) L 07/19/23 14:22 Hgb 10.2 g/dL (12.0-16.0) L 07/19/23 14:22 Hct 31.5 % (37.0-47.0) L 07/19/23 14:22 MCV 98.4 fL (81.0-99.0) 07/19/23 14:22 MCH 31.9 pg (27.0-31.0) H 07/19/23 14:22 MCHC 32.4 g/dL (32.0-36.0) 07/19/23 14:22 RDW 15.1 % (12.0-15.0) H 07/19/23 14:22 Plt Count 353 10^3/uL (130-450) 07/19/23 14:22 MPV 8.1 fL (7.9-10.8) 07/19/23 14:22 Neut # (Auto) 4.2 10^3/uL (1.5-6.6) 07/19/23 14:22 Lymph # (Auto) 1.7 10^3/uL (1.5-3.5) 07/19/23 14:22 [place] # (Auto) 0.8 10^3/uL (0.0-1.0) 07/19/23 14:22 Eos # (Auto) 0.2 10^3/uL (0.0-0.7) 07/19/23 14:22 Baso # (Auto) 0.1 10^3/uL (0.0-0.1) 07/19/23 14:22 Absolute Nucleated RBC 0.00 x10^3/uL 07/19/23 14:22 Nucleated RBC % 0.0 /100WBC 07/19/23 14:22 Sodium 127 mmol/L (135-145) L 07/20/23 02:18 Potassium 3.5 mmol/L (3.5-4.5) 07/20/23 02:18 Chloride 95 mmol/L (101-111) L 07/20/23 02:18 Carbon Dioxide 27 mmol/L (21-32) 07/20/23 02:18 Anion Gap 5.0 (6-13) L 07/20/23 02:18 BUN 3 mg/dL (6-20) L 07/20/23 02:18 Creatinine 0.5 mg/dL (0.6-1.3) L 07/20/23 02:18 Estimated GFR (MDRD) 119 (>89) 07/20/23 02:18 Glucose 120 mg/dL (74-104) H 07/20/23 02:18 Lactic Acid 1.1 mmol/L (0.5-2.2) 07/19/23 14:22 Calcium 8.1 mg/dL (8.5-10.3) L 07/20/23 02:18 Total Bilirubin 0.3 mg/dL (0.2-1.0) 07/19/23 14:22 AST 20 IU/L (10-42) 07/19/23 14:22 ALT 11 IU/L (10-60) 07/19/23 14:22 Alkaline Phosphatase 139 IU/L (42-121) H 07/19/23 14:22 Total Protein 5.0 g/dL (6.4-8.9) L 07/19/23 14:22 Albumin 3.1 g/dL (3.2-5.5) L 07/19/23 14:22 Globulin 1.9 g/dL (2.1-4.2) L 07/19/23 14:22 Albumin/Globulin Ratio 1.6 (1.0-2.2) 07/19/23 14:22 Urine Color YELLOW 07/19/23 15:53 Urine Clarity HAZY (CLEAR) 07/19/23 15:53 Urine pH 6.0 PH (5.0-7.5) 07/19/23 15:53 Ur Specific [place] <=1.005 (1.002-1.030) 07/19/23 15:53 Urine Protein NEGATIVE mg/dL (NEGATIVE) 07/19/23 15:53 Urine Glucose (UA) NEGATIVE mg/dL (NEGATIVE) 07/19/23 15:53 Urine Ketones 40 mg/dL (NEGATIVE) H 07/19/23 15:53 Urine Occult Blood TRACE-INTA (NEGATIVE) 07/19/23 15:53 Urine Nitrite NEGATIVE (NEGATIVE) 07/19/23 15:53 Urine Bilirubin NEGATIVE (NEGATIVE) 07/19/23 15:53 Urine Urobilinogen 0.2 (NORMAL) E.U./dL (NORMAL) 07/19/23 15:53 Ur Leukocyte Esterase SMALL (NEGATIVE) H 07/19/23 15:53 Urine RBC 0-5 /HPF (0-5) 07/19/23 15:53 Urine WBC >25 /HPF (0-5) H 07/19/23 15:53 Ur Epithelial Cells FEW Transitional /HPF (<= Few) 07/19/23 15:53 Ur Squamous Epith Cells RARE Squamous (<= Few) 07/19/23 15:53 Urine Bacteria Few /HPF (None Seen) 07/19/23 15:53 Urine Culture Comments INDICATED 07/19/23 15:53 Nasal Adenovirus (PCR) NOT DETECTED 07/19/23 14:20 Nasal B. parapertussis DNA (PCR) NOT DETECTED 07/19/23 14:20 Nasal Coronavir 229E PCR NOT DETECTED 07/19/23 14:20 Nasal Coronavir HKU1 PCR NOT DETECTED 07/19/23 14:20 Nasal Coronavir NL63 PCR NOT DETECTED 07/19/23 14:20 Nasal Coronavir OC43 PCR NOT DETECTED 07/19/23 14:20 Nasal Enterovir/Rhinovir PCR NOT DETECTED 07/19/23 14:20 Nasal Influenza B PCR NOT DETECTED 07/19/23 14:20 Nasal Influenza A PCR NOT DETECTED 07/19/23 14:20 Nasal Parainfluen 1 PCR NOT DETECTED 07/19/23 14:20 Nasal Parainfluen 2 PCR NOT DETECTED 07/19/23 14:20 Nasal Parainfluen 3 PCR NOT DETECTED 07/19/23 14:20 Nasal Parainfluen 4 PCR NOT DETECTED 07/19/23 14:20 Nasal RSV (PCR) NOT DETECTED 07/19/23 14:20 Nasal B.pertussis DNA PCR NOT DETECTED 07/19/23 14:20 Nasal C.pneumoniae (PCR) NOT DETECTED 07/19/23 14:20 Ever Human Metapneumo PCR NOT DETECTED 07/19/23 14:20 Nasal M.pneumoniae (PCR) NOT DETECTED 07/19/23 14:20 Nasal SARS-CoV-2 (PCR) NOT DETECTED 07/19/23 14:20
[2023-07-20 07:50] LABS: BASOPHILS # (AUTO) 0.1 10^3/uL (0.0-0.1); BASOPHILS % (AUTO) 1.9 %; EOSINOPHILS # (AUTO) 0.2 10^3/uL (0.0-0.7); EOSINOPHILS % (AUTO) 6.4 %; HCT - HEMATOCRIT 27.4 % (37.0-47.0); LYMPHOCYTES # (AUTO) 0.9 10^3/uL (1.5-3.5); LYMPHOCYTES % (AUTO) 24.6 %; MEAN CORPUSCULAR HEMOGLOBIN 32.3 pg (27.0-31.0); MEAN CORPUSCULAR HGB CONC 32.8 g/dL (32.0-36.0); MEAN CORPUSCULAR VOLUME 98.2 fL (81.0-99.0); MEAN PLATELET VOLUME 8.2 fL (7.9-10.8); MONOCYTES # (AUTO) 0.5 10^3/uL (0.0-1.0); MONOCYTES % (AUTO) 12.7 %; NEUTROPHILS # (AUTO) 1.9 10^3/uL (1.5-6.6); NEUTROPHILS % (AUTO) 53.3 %; PLT - PLATELET COUNT 294 10^3/uL (130-450); RED BLOOD COUNT 2.79 10^6/uL (4.20-5.40); RED CELL DISTRIBUTION WIDTH 15.1 % (12.0-15.0); WHITE BLOOD COUNT 3.6 x10^3/uL (4.8-10.8)
[2023-07-20] MEDS ORDERED: MEROPENEM 500 MG in SODIUM CHLORIDE 0.9% MINIBAG 100 ML IV SCH ×2 (08:00→10:00)
[2023-07-20] MEDS: amLODIPine 5 MG TABLET PO SCH (08:53)
[2023-07-20] MEDS: MEROPENEM 1 GM in SODIUM CHLORIDE 0.9% MINIBAG 100 ML IV SCH (08:54)
[2023-07-20] MEDS: LOSARTAN 50 MG TABLET PO SCH (08:54)
[2023-07-20] MEDS: ENOXAPARIN 40 MG/0.4 ML SYRINGE SUBQ SCH (08:55)
[2023-07-20] MEDS: PANTOPRAZOLE 40 MG TABLET PO SCH (08:58)
[2023-07-20] MEDS ORDERED: ATORVASTATIN 10 MG TABLET PO SCH ×2 (09:00→21:00)
[2023-07-20] MEDS ORDERED: SIMVASTATIN 40 MG PO SCH (09:00)
[2023-07-20] MEDS ORDERED: ESOMEPRAZOLE MAGNESIUM 20 MG PO SCH (09:00)
[2023-07-20] MEDS ORDERED: MONTELUKAST 10 MG TABLET PO SCH (09:00)
[2023-07-20] MEDS ORDERED: LOSARTAN 50 MG TABLET PO SCH (09:00)
--- NOTE | 2023-07-20 11:37 | PHARMACY PROGRESS NOTE ---
- Best Possible Medication History Admit Date and Time: 07/19/232019 Processed by: Pharmacy Medication History completed: Yes Patient Interview: Pt unable to participate Secondary Source(s): Physician records, Pharmacy records, Insurance records As the person ultimately responsible for medication therapy, providers are able to order a medication from an existing home medication list in [facility] via the "Reconcile Routine" prior to Confirmation of that medication by applications support engineer. Such practice is discouraged except when the physician, in their clinical judgment, deems that a medical need exists for a medication without regard to previous use.
[2023-07-20] MEDS: ACETAMINOPHEN 325 MG TABLET PO PRN (13:20)
[2023-07-20] MEDS: SODIUM CHLORIDE 0.9% 1,000 ML IV SCH (17:36)
[2023-07-20] MEDS: SODIUM CHLORIDE FLUSH 0.9% 10 ML SYRINGE IVP PRN (18:44)
[2023-07-20] MEDS: DICLOFENAC SODIUM 1% GEL 50 GM TUBE TOP PRN (18:45)
[2023-07-20] MEDS: KETOROLAC 30 MG/ML VIAL IVP PRN (18:45)
[2023-07-20] MEDS: CYCLOBENZAPRINE 10 MG TABLET PO PRN (20:34)
[2023-07-20] MEDS: MONTELUKAST 10 MG TABLET PO SCH (20:34)
[2023-07-20] MEDS: ONDANSETRON 4 MG/2 ML VIAL IVP PRN (20:45)
[2023-07-21] MEDS: ZINC OXIDE 20% OINT 30 GM TUBE TOP PRN (00:11)
[2023-07-21] MEDS: BENZOCAINE/MENTHOL LOZENGE MM PRN (00:19)
[2023-07-21 05:35] LABS: BASOPHILS # (AUTO) 0.1 10^3/uL (0.0-0.1); EOSINOPHILS # (AUTO) 0.3 10^3/uL (0.0-0.7); EOSINOPHILS % (AUTO) 7.9 %; HCT - HEMATOCRIT 28.3 % (37.0-47.0); HGB - HEMOGLOBIN 9.1 g/dL (12.0-16.0); LYMPHOCYTES # (AUTO) 1.1 10^3/uL (1.5-3.5); LYMPHOCYTES % (AUTO) 29.6 %; MEAN CORPUSCULAR HEMOGLOBIN 31.8 pg (27.0-31.0); MEAN CORPUSCULAR HGB CONC 32.2 g/dL (32.0-36.0); MEAN PLATELET VOLUME 8.7 fL (7.9-10.8); MONOCYTES # (AUTO) 0.5 10^3/uL (0.0-1.0); MONOCYTES % (AUTO) 14.1 %; NEUTROPHILS # (AUTO) 1.6 10^3/uL (1.5-6.6); NEUTROPHILS % (AUTO) 45.6 %; PLT - PLATELET COUNT 368 10^3/uL (130-450); RED BLOOD COUNT 2.86 10^6/uL (4.20-5.40); RED CELL DISTRIBUTION WIDTH 15.2 % (12.0-15.0); WHITE BLOOD COUNT 3.6 x10^3/uL (4.8-10.8)
[2023-07-21 05:59] LABS: CALCIUM 7.9 mg/dL (8.5-10.3); CREATININE 0.4 mg/dL (0.6-1.3); MAGNESIUM 1.3 mg/dL (1.7-2.3); PHOSPHORUS 3.7 mg/dL (2.5-5.0); POTASSIUM 3.5 mmol/L (3.5-4.5)
[2023-07-21] MEDS: SACCHAROMYCES BOULARDII 250 MG CAPSULE PO SCH (08:31)
[2023-07-21] MEDS: MAGNESIUM SULFATE 2 GRAM 2 GM/50 ML BAG IV ONE (08:46)
[2023-07-21] MEDS: FERRIC GLUCONATE 125 MG in SODIUM CHLORIDE 0.9% 100ML 100 ML IV SCH (10:45)
[2023-07-21 13:18] LABS: INFLUENZA A- RESP PCR PANEL NOT DETECTED; INFLUENZA B - RESP PCR PANEL NOT DETECTED; RSV- RESP PCR PANEL NOT DETECTED; SARS-CoV-2 -RESP PCR PANEL NOT DETECTED
--- NOTE | 2023-07-21 17:29 | PROVIDER PROGRESS NOTE ---
Subjective - Prog Note Date Prog Note Date: 07/21/23 Prog Note Time: 17:28 - Subjective Pt reports feeling: No change Subjective: Scribes 3 weeks of just generalized nonstop nausea, abdominal pain, intermittent diarrhea. Just getting weaker and weaker. Since she has been admitted, she has not had any diarrhea. But the anorexia continues and today's intake consisted of half of her food cup, half of an Ensure, and some harish crackers. She denies cough, shortness of breath, chest congestion. No urgency, frequency, dysuria. Her oncologist at gave us a call. Her name is Subha Leung and her cell phone number is [phone]. She is very worried because the Mab that the patient takes is notorious for causing colitis. Patient is already been without chemo for 3 weeks. I went over the CAT scan report and today's exam. Dr. Leung is feeling more reassured. But she wants me to tell the patient that most li abi she still not getting get chemo this next week. Certainly not tomorrow. Patient's was at the bedside. I was able to update he and her about Dr. Leung's conversation and thoughts Current Medications - Current Medications Current Medications: Active Medications Acetaminophen (Acetaminophen 325 Mg Tablet) 650 mg PO Q4HR PRN PRN Reason: Pain or Fever > 38C (100.4F) Last Admin: 07/21/23 17:18 Dose: 650 mg Cyclobenzaprine HCl (Cyclobenzaprine 10 Mg Tablet) 10 mg PO Q8H PRN PRN Reason: Spasms Last Admin: 07/20/23 20:34 Dose: 10 mg Diclofenac Sodium (Diclofenac Sodium 1% Gel 50 Gm Tube) 2 gm TOP QID PRN PRN Reason: Mild Pain (Level 1-3) Last Admin: 07/20/23 18:45 Dose: 2 gm Enoxaparin Sodium (Enoxaparin 40 Mg/0.4 Ml Syringe) 40 mg SUBQ DAILY ARLENE Last Admin: 07/21/23 08:47 Dose: 40 mg Gabapentin (Gabapentin 100 Mg Capsule) 300 mg PO HS ARLENE Last Admin: 07/20/23 20:33 Dose: 300 mg Meropenem 1 gm/ Sodium (Chloride) 100 mls @ 200 mls/hr IV Q12H ARLENE Last Infusion: 07/21/23 15:06 Dose: Infused Sodium Chloride (Normal Saline 0.9%) 1,000 mls @ 120 mls/hr IV .Q8H20M [facility] Last Admin: 07/21/23 13:33 Dose: 120 mls/hr Ferric Sodium Gluconate Complex 125 mg/ Sodium Chloride 110 mls @ 100 mls/hr IV ONCE [facility] Stop: 07/22/23 10:05 Last Infusion: 07/21/23 11:45 Dose: Infused Ketorolac Tromethamine (Ketorolac 30 Mg/Ml Vial) 30 mg IVP Q8HR PRN PRN Reason: Severe Pain (Level 7-10) Stop: 07/25/23 17:20 Last Admin: 07/21/23 15:07 Dose: 30 mg Montelukast Sodium (Montelukast 10 Mg Tablet) 10 mg PO QPM [facility] Last Admin: 07/20/23 20:34 Dose: 10 mg Multi-Ingredient Ointment (Zinc Oxide 20% Oint 30 Gm Tube) 1 applic TOP PRN PRN PRN Reason: Skin Care Last Admin: 07/21/23 00:11 Dose: 1 applic Ondansetron HCl (Ondansetron 4 Mg/2 Ml Vial) 4 mg IVP Q4HR PRN PRN Reason: Nausea / Vomiting Last Admin: 07/21/23 08:31 Dose: 4 mg Pantoprazole Sodium (Pantoprazole 40 Mg Tablet) 40 mg PO QDAC [facility] Last Admin: 07/21/23 06:37 Dose: 40 mg Saccharomyces Boulardii (Saccharomyces Boulardii 250 Mg Capsule) 250 mg PO BIDWM [facility] Last Admin: 07/21/23 17:19 Dose: 250 mg Sodium Chloride (Sodium Chloride Flush 0.9% 10 Ml Syringe) 10 ml IVP PRN PRN PRN Reason: NEEDED PER PROVIDER ORDERS Last Admin: 07/20/23 18:44 Dose: 10 ml Sodium Chloride (Sodium Chloride Flush 0.9% 10 Ml Syringe) 10 ml IVP 0100,0900,1700 [facility] Last Admin: 07/21/23 17:19 Dose: Not Given Throat Lozenges (Benzocaine/Menthol Lozenge) 1 lozenge MM Q2HR PRN PRN Reason: Throat pain Last Admin: 07/21/23 11:12 Dose: 1 lozenge Celecoxib [CeleBREX] 200 mg PO DAILY PRN 07/11/14 Cyclobenzaprine [Flexeril] 10 mg PO Q8H PRN 07/11/14 Esomeprazole Magnesium [Nexium 24Hr] 20 mg PO DAILY 07/11/14 Montelukast [Singulair] 10 mg PO DAILY 07/11/14 Simvastatin 40 mg PO DAILY 07/11/14 Losartan [Cozaar] 50 mg PO DAILY 07/16/23 Amlodipine Besylate [Norvasc] 2.5 mg PO BID 07/19/23 Gabapentin [Neurontin] 300 mg PO HS 07/19/23 Tbo-Filgrastim [Granix] 300 mcg SUBQ DAILY PRN 07/20/23 Objective - Vital Signs/Intake & Output Reviewed Vital Signs: Yes Vital Signs: Vital Signs x48h Temp Pulse Pulse Pulse Pulse Resp BP 07/21/23 15:44 37.8 C 94 20 118/65 07/21/23 11:48 102 H 104 H 93 07/21/23 11:46 102 H 104 H 93 BP BP BP Pulse Ox Pulse Ox 07/21/23 15:44 95 07/21/23 11:48 107/63 106/61 102/61 07/21/23 11:46 107/63 106/61 102/61 98 Intake & Output: Intake & Output 07/18/23 07/19/23 07/20/23 07/21/23 23:59 23:59 23:59 23:59 Intake Total 2620 3298.333 2326 Output Total 800 1300 Balance 2620 2498.333 1026 - Objective General Appearance: positive: Alert, Lethargic, Other (Pale, fatigued appearing, alopecia, dry lips) Eyes Bilateral: positive: PERRL, EOMI ENT: positive: Pharynx nml, Dry mucous membranes Neck: positive: No JVD. negative: Stiff neck Respiratory: positive: No respiratory distress. negative: Wheezes, Rales, Rhonchi Cardiovascular: positive: Regular rate & rhythm, No murmur, No gallop Abdomen: positive: Non-tender, No organomegaly, Nml bowel sounds, No distention, Other (She says she has quite a bit of flatus, occasional hiccuping but no diarrhea since admission) Skin: positive: Warm, Dry, Pallor Extremities: positive: Non-tender, Full ROM, No pedal edema, Other ( pillows and blankets on her feet. She says Weight makes them feel better from the neuropathy) Neurologic/Psychiatric: positive: Oriented x3, CN's nml (2-12), Motor nml, Depressed mood/affect - Lab Results Fish Bones: 07/21/23 04:59 07/21/23 04:59 Other Labs: Lab Results x24hrs 07/21/23 07/21/23 07/21/23 Range/Units 12:05 04:59 04:59 WBC 3.6 L (4.8-10.8) x10^3/uL RBC 2.86 L (4.20-5.40) 10^6/uL Hgb 9.1 L (12.0-16.0) g/dL Hct 28.3 L (37.0-47.0) % MCV 99.0 (81.0-99.0) fL MCH 31.8 H (27.0-31.0) pg MCHC 32.2 (32.0-36.0) g/dL RDW 15.2 H (12.0-15.0) % Plt Count 368 (130-450) 10^3/uL MPV 8.7 (7.9-10.8) fL Neut # (Auto) 1.6 (1.5-6.6) 10^3/uL Lymph # (Auto) 1.1 L (1.5-3.5) 10^3/uL [place] # (Auto) 0.5 (0.0-1.0) 10^3/uL Eos # (Auto) 0.3 (0.0-0.7) 10^3/uL Baso # (Auto) 0.1 (0.0-0.1) 10^3/uL Absolute Nucleated RBC 0.00 x10^3/uL Nucleated RBC % 0.0 /100WBC Sodium 129 L (135-145) mmol/L Potassium 3.5 (3.5-4.5) mmol/L Chloride 98 L (101-111) mmol/L Carbon Dioxide 24 (21-32) mmol/L Anion Gap 7.0 (6-13) BUN 2 L (6-20) mg/dL Creatinine 0.4 L (0.6-1.3) mg/dL Estimated GFR (MDRD) 154 (>89) Glucose 91 (74-104) mg/dL Calcium 7.9 L (8.5-10.3) mg/dL Phosphorus 3.7 (2.5-5.0) mg/dL Magnesium 1.3 L (1.7-2.3) mg/dL Iron 15 L (50-212) ug/dL TIBC 169 L (250-450) ug/dL % Saturation 9 L (20-50) % Transferrin 121 L (203-362) mg/dL Vitamin B12 844 (180-914) pg/mL Folate 8.8 (5.90 - >24.8) ng/mL Urine Sodium mmol/L Nasal Influenza B PCR NOT DETECTED Nasal Influenza A PCR NOT DETECTED Nasal RSV (PCR) NOT DETECTED Nasal SARS-CoV-2 (PCR) NOT DETECTED 07/20/23 Range/Units 18:40 WBC (4.8-10.8) x10^3/uL RBC (4.20-5.40) 10^6/uL Hgb (12.0-16.0) g/dL Hct (37.0-47.0) % MCV (81.0-99.0) fL MCH (27.0-31.0) pg MCHC (32.0-36.0) g/dL RDW (12.0-15.0) % Plt Count (130-450) 10^3/uL MPV (7.9-10.8) fL Neut # (Auto) (1.5-6.6) 10^3/uL Lymph # (Auto) (1.5-3.5) 10^3/uL [place] # (Auto) (0.0-1.0) 10^3/uL Eos # (Auto) (0.0-0.7) 10^3/uL Baso # (Auto) (0.0-0.1) 10^3/uL Absolute Nucleated RBC x10^3/uL Nucleated RBC % /100WBC Sodium (135-145) mmol/L Potassium (3.5-4.5) mmol/L Chloride (101-111) mmol/L Carbon Dioxide (21-32) mmol/L Anion Gap (6-13) BUN (6-20) mg/dL Creatinine (0.6-1.3) mg/dL Estimated GFR (MDRD) (>89) Glucose (74-104) mg/dL Calcium (8.5-10.3) mg/dL Phosphorus (2.5-5.0) mg/dL Magnesium (1.7-2.3) mg/dL Iron (50-212) ug/dL TIBC (250-450) ug/dL % Saturation (20-50) % Transferrin (203-362) mg/dL Vitamin B12 (180-914) pg/mL Folate (5.90 - >24.8) ng/mL Urine Sodium 53.4 mmol/L Nasal Influenza B PCR Nasal Influenza A PCR Nasal RSV (PCR) Nasal SARS-CoV-2 (PCR) ABX Reporting Has patient been on IV antibiotics over the past 48 hours?: Yes Assessment/Plan - Problem List (1) Hypotension Impression: With discontinuation of her blood pressure pills yesterday, blood pressure has proved. However today she was 102/61 supine, 107/63 sitting, and 106/61 standing. Later this afternoon she is 118/65. Plan: Continue IV fluids, continue to monitor daily and withhold her blood pressure medicines Continue to try and work with physical therapy to increase strength and mobility (2) Failure of outpatient treatment Assessment/Plan: Based on her ESBL-producing E. coli's sensitivities, and resistances, as an outpt she was put on cipro, bactrim, macrobid with no improvements Macrobid, from its mechanism of action, is not expected to be a good choice of antibiotic. She is on meropenem day #3. Today pharmacy stated that may be Macrobid could be used if I switch her to p.o. antibiotics. Plan: Consider switching to oral antibiotics tomorrow with discharge July 23 if patient stays stable. Continue probiotic. (3) UTI due to extended-spectrum beta lactamase (ESBL) producing Escherichia coli Assessment/Plan: Her July 10, 2023 urine culture grew ESBL-producing E. coli. She was on empiric Cipro, bactrim, then changed to Macrobid. With the mechanism of action it was not a good choice despite showing sensitivity in the urine culture infor manuelaion.Repeat blood cultures from July 19 without growth after 2 days. Urine culture has less than 10,000 colony-forming units. [place] to be contamination. So this current cultures were not helpful. Plan: Continue with iv Meropenam. Changed to p.o. antibiotics after consultation with pharmacy tomorrow. (4) Nausea continues; vomiting and diarrhea Have resolved Assessment/Plan: Likely multifactorial: From being on chemotherapy, from having an infection, and from having colitis from a Mab Plan: Continue with IV fluids Continue bland and pureed diet for bowel rest Continue the as needed Zofran PPN discussed but patient is trying to eat on her own so we will hold off for today (5) Colitis Assessment/Plan: Her CT abdomen/pelvis showed diffuse mild colonic inflammation. Oncologist states that the colitis is most likely from her Mab. Last BM was on admission. No bowel movement since. Plan: Nutrition has seen the patient today. No other changes at this time. (6) Hyponatremia Assessment/Plan: Likely from losses in vomiting and diarrhea, and from poor oral intake for a week. Sodium 127 on admission, 129 today. Urine sodium is 53.4. Plan: Continue hydration with IV NS Continue BMP every 12 hours (7) Abnormal EKG Assessment/Plan: Her EKG shows inferior Q waves and anterior Q waves.Echo done today. Results are pending. Plan: If she has a depressed EF then the saline rehydration volume needs to be carefully watched (8) Anemia Assessment/Plan: Hemoglobin is 10. Expected to be lower as we continue with IV hydration from hemodilution. B12 levels are normal. Iron is very low at 15, TIBC 169, transferrin 121. Plan: Ferrous gluconate IV 125 mg today and tomorrow. Follow CBC daily, transfuse if hemoglobin drops below 7 (9) Hx of essential hypertension Assessment/Plan: She is on losartan and amlodipine at home. Those were resumed while here. Because of orthostatic hypotension those were discontinued July 20. Plan: New medications when blood pressure hide (10) Carcinoma of breast treated with adjuvant chemotherapy Assessment/Plan: As per history. She has tripple negative breast CA and is on chemo at every Thursday except none the last 2 Thu.After discussing the case with her oncologist, she will miss another appointment tomorrow. Oncology doubts he would even give her treatment next Thursday. They will keep in contact with the patient. (11) Chronic pain Assessment/Plan: She gets headaches with spasms in her neck muscles and uses Flexeril. She gets left arm pain and right femur pain which she thinks is from her chemotherapy for which she takes Celebrex. Celebrex changed to IV Toradol July 20. Patient feels that that is helping.Is her home Flexeril. Plan: No change at this time
[2023-07-21] MEDS: guaiFENesin/DEXTROMETHORPHAN 10 ML UDC PO PRN (19:34)
[2023-07-22 05:02] LABS: BASOPHILS # (AUTO) 0.1 10^3/uL (0.0-0.1); BASOPHILS % (AUTO) 1.8 %; EOSINOPHILS # (AUTO) 0.3 10^3/uL (0.0-0.7); HCT - HEMATOCRIT 29.5 % (37.0-47.0); HGB - HEMOGLOBIN 9.5 g/dL (12.0-16.0); LYMPHOCYTES # (AUTO) 1.3 10^3/uL (1.5-3.5); LYMPHOCYTES % (AUTO) 37.2 %; MEAN CORPUSCULAR HEMOGLOBIN 32.1 pg (27.0-31.0); MEAN CORPUSCULAR HGB CONC 32.2 g/dL (32.0-36.0); MEAN CORPUSCULAR VOLUME 99.7 fL (81.0-99.0); MEAN PLATELET VOLUME 8.3 fL (7.9-10.8); MONOCYTES # (AUTO) 0.5 10^3/uL (0.0-1.0); MONOCYTES % (AUTO) 13.8 %; NEUTROPHILS # (AUTO) 1.3 10^3/uL (1.5-6.6); NEUTROPHILS % (AUTO) 36.6 %; PLT - PLATELET COUNT 316 10^3/uL (130-450); RED BLOOD COUNT 2.96 10^6/uL (4.20-5.40); RED CELL DISTRIBUTION WIDTH 15.1 % (12.0-15.0); WHITE BLOOD COUNT 3.4 x10^3/uL (4.8-10.8)
[2023-07-22 05:28] LABS: BUN - BLOOD UREA NITROGEN < 2 mg/dL (6-20); CALCIUM 7.8 mg/dL (8.5-10.3); CARBON DIOXIDE - CO2 26 mmol/L (21-32); CHLORIDE 99 mmol/L (101-111); CREATININE 0.4 mg/dL (0.6-1.3); GFR - MDRD 154 (>89); GLUCOSE 89 mg/dL (74-104); POTASSIUM 3.5 mmol/L (3.5-4.5); SODIUM 130 mmol/L (135-145)
--- NOTE | 2023-07-22 21:08 | PROVIDER PROGRESS NOTE ---
Assessment/Plan - Problem List (1) Hypotension Assessment/Plan: Plan: Continue IV fluids Continue to monitor BP (2) Failure of outpatient treatment Assessment/Plan: Based on her ESBL-producing E. coli's sensitivities, and resistances, as an outpt she was put on cipro, bactrim, macrobid with no improvements Continue meropenem day #4. Recommend she complete course of meropenem Plan: Continue Meropenem. It is my opinion that PO medications are unlikely to benefit her. (3) UTI due to extended-spectrum beta lactamase (ESBL) producing Escherichia coli Assessment/Plan: Her July 10, 2023 urine culture grew ESBL-producing E. coli. She was on empiric Cipro, bactrim, then changed to Macrobid. With the mechanism of action it was not a good choice despite showing sensitivity in the urine culture information.Repeat blood cultures from July 19 without growth after 2 days. Urine culture has less than 10,000 colony-forming units. [place] to be contamination. So this current cultures were not helpful. Plan: Continue with iv Meropenam. (4) Nausea continues; vomiting and diarrhea Have resolved Assessment/Plan: Likely multifactorial: From being on chemotherapy, from having an infection, and from having colitis from a Mab Plan: Continue with IV fluids Continue bland and pureed diet for bowel rest Continue Zofran as needed. (5) Colitis Assessment/Plan: Her CT abdomen/pelvis showed diffuse mild colonic inflammation. Oncologist states that the colitis is most likely from her Mab. Last BM was on admission. No bowel movement since. Plan: Continue to monitor. (6) Hyponatremia Assessment/Plan: Likely from losses in vomiting and diarrhea, and from poor oral intake for a week. Sodium 127 on admission, 129 today. Urine sodium is 53.4. Na is improving. Plan: Continue hydration with IV NS Continue to monitor serum Na. Consider small dose of lasix tomorow if no improvement. (7) Abnormal EKG Assessment/Plan: Her EKG shows inferior Q waves and anterior Q waves. Echo with EF of 60-65% with some diastolic dysfunction. (8) Anemia Assessment/Plan: Hemoglobin is 10. Expected to be lower as we continue with IV hydration from hemodilution. B12 levels are normal. Iron is very low at 15, TIBC 169, transferrin 121. Plan: Ferrous gluconate IV 125 mg today and tomorrow. Follow CBC daily, transfuse if hemoglobin drops below 7 (9) Hx of essential hypertension Assessment/Plan: All BP medications discontinue. Continue to monitor. Plan: Continue to monitor BP. (10) Carcinoma of breast treated with adjuvant chemotherapy Assessment/Plan: As per history. She has tripple negative breast CA and is on chemo at [facility] every Thursday except none the last 2 Thu.After discussing the case with her oncologist, she will miss another appointment tomorrow. Oncology doubts he would even give her treatment next Thursday. They will keep in contact with the patient. (11) Chronic pain Assessment/Plan: She gets headaches with spasms in her neck muscles and uses Flexeril. She gets left arm pain and right femur pain which she thinks is from her chemotherapy for which she takes Celebrex. Celebrex changed to IV Toradol July 20. Plan: Continue Ketorolac. - Current Meds Current Meds: Current Medications Generic Name Dose Route Start Last Admin Trade Name Freq PRN Reason Stop Dose Admin Acetaminophen 650 mg 07/20/23 12:37 07/22/23 18:50 Acetaminophen 325 Mg Tablet PO 650 mg Q4HR PRN Administration Pain or Fever > 38C (100.4F) Cyclobenzaprine HCl 10 mg 07/20/23 17:20 07/21/23 21:43 Cyclobenzaprine 10 Mg Tablet PO 10 mg Q8H PRN Administration Spasms Diclofenac Sodium 2 gm 07/20/23 17:57 07/22/23 19:36 Diclofenac Sodium 1% Gel 50 Gm Tube TOP 2 gm QID PRN Administration Mild Pain (Level 1-3) Enoxaparin Sodium 40 mg 07/20/23 09:00 07/22/23 08:58 Enoxaparin 40 Mg/0.4 Ml Syringe SUBQ 40 mg DAILY ARLENE Administration Gabapentin 300 mg 07/19/23 21:00 07/21/23 21:32 Gabapentin 100 Mg Capsule PO 300 mg HS ARLENE Administration Guaifenesin 10 ml 07/21/23 19:14 07/22/23 18:46 Guaifenesin/Dextromethorphan 10 Ml Udc PO 10 ml Q6HR PRN Administration Cough Meropenem 1 gm/ Sodium 100 mls @ 200 mls/hr 07/20/23 09:00 07/22/23 09:30 Chloride IV Infused Q12H ARLENE Infusion Sodium Chloride 1,000 mls @ 120 mls/hr 07/20/23 17:33 07/22/23 21:03 Normal Saline 0.9% IV 0 mls/hr .Q8H20M ARLENE Infusion Ketorolac Tromethamine 30 mg 07/20/23 17:21 07/22/23 13:51 Ketorolac 30 Mg/Ml Vial IVP 07/25/23 17:20 30 mg Q8HR PRN Administration Severe Pain (Level 7-10) Montelukast Sodium 10 mg 07/20/23 21:00 07/21/23 21:32 Montelukast 10 Mg Tablet PO 10 mg QPM ARLENE Administration Multi-Ingredient Ointment 1 applic 07/20/23 06:03 07/21/23 00:11 Zinc Oxide 20% Oint 30 Gm Tube TOP 1 applic PRN PRN Administration Skin Care Ondansetron HCl 4 mg 07/20/23 07:35 07/22/23 21:03 Ondansetron 4 Mg/2 Ml Vial IVP 4 mg Q4HR PRN Administration Nausea / Vomiting Pantoprazole Sodium 40 mg 07/20/23 08:00 07/22/23 06:36 Pantoprazole 40 Mg Tablet PO 40 mg QDAC ARLENE Administration Saccharomyces Boulardii 250 mg 07/21/23 08:00 07/22/23 16:14 Saccharomyces Boulardii 250 Mg Capsule PO 250 mg BIDWM ARLENE Administration Sodium Chloride 10 ml 07/19/23 20:19 07/21/23 20:58 Sodium Chloride Flush 0.9% 10 Ml Syringe IVP 10 ml PRN PRN Administration NEEDED PER PROVIDER ORDERS Sodium Chloride 10 ml 07/20/23 01:00 07/22/23 16:15 Sodium Chloride Flush 0.9% 10 Ml Syringe IVP 10 ml 0100,0900,1700 ARLENE Administration Throat Lozenges 1 lozenge 07/20/23 23:59 07/22/23 18:46 Benzocaine/Menthol Lozenge MM 1 lozenge Q2HR PRN Administration Throat pain - Lab Result Fish Bone Diagrams: 07/22/23 04:54 07/22/23 04:54 Subjective - Subjective Patient Reports: Other Objective Vital Signs: Vital Signs - 24 hr 07/22/23 07/22/23 07/22/23 00:00 08:00 15:42 Temperature 36.9 C 37.3 C 37.5 C Heart Rate [ 88 92 85 Brachial] Respiratory 16 18 20 Rate Blood Pressure 112/61 113/66 115/68 [Right Brachial artery] O2 Saturation 96 90 L 94 Oxygen O2 Source Room air I&O (Last 24 Hrs): Intake and Output Totals x24h 07/20/23 07/21/23 07/22/23 23:59 23:59 23:59 Intake Total 3298.333 3826 3108 Output Total 800 1950 800 Balance 2498.333 1876 2308 General: Alert, Oriented x3 HEENT: Atraumatic Neck: No JVD Neuro: Alert, Non Focal Cardiovascular: Regular rate, Normal S1, Normal S2 Respiratory: No respiratory distress, Breath sounds nml Abdomen: Normal bowel sounds, Soft, No tenderness Extremities: No cyanosis, No edema Skin: No rashes - Results Results: Laboratory Results WBC 3.4 x10^3/uL (4.8-10.8) L 07/22/23 04:54 RBC 2.96 10^6/uL (4.20-5.40) L 07/22/23 04:54 Hgb 9.5 g/dL (12.0-16.0) L 07/22/23 04:54 Hct 29.5 % (37.0-47.0) L 07/22/23 04:54 MCV 99.7 fL (81.0-99.0) H 07/22/23 04:54 MCH 32.1 pg (27.0-31.0) H 07/22/23 04:54 MCHC 32.2 g/dL (32.0-36.0) 07/22/23 04:54 RDW 15.1 % (12.0-15.0) H 07/22/23 04:54 Plt Count 316 10^3/uL (130-450) 07/22/23 04:54 MPV 8.3 fL (7.9-10.8) 07/22/23 04:54 Neut # (Auto) 1.3 10^3/uL (1.5-6.6) L 07/22/23 04:54 Lymph # (Auto) 1.3 10^3/uL (1.5-3.5) L 07/22/23 04:54 [place] # (Auto) 0.5 10^3/uL (0.0-1.0) 07/22/23 04:54 Eos # (Auto) 0.3 10^3/uL (0.0-0.7) 07/22/23 04:54 Baso # (Auto) 0.1 10^3/uL (0.0-0.1) 07/22/23 04:54 Absolute Nucleated RBC 0.00 x10^3/uL 07/22/23 04:54 Nucleated RBC % 0.0 /100WBC 07/22/23 04:54 Sodium 130 mmol/L (135-145) L 07/22/23 04:54 Potassium 3.5 mmol/L (3.5-4.5) 07/22/23 04:54 Chloride 99 mmol/L (101-111) L 07/22/23 04:54 Carbon Dioxide 26 mmol/L (21-32) 07/22/23 04:54 Anion Gap 5.0 (6-13) L 07/22/23 04:54 BUN < 2 mg/dL (6-20) L 07/22/23 04:54 Creatinine 0.4 mg/dL (0.6-1.3) L 07/22/23 04:54 Estimated GFR (MDRD) 154 (>89) 07/22/23 04:54 Glucose 89 mg/dL (74-104) 07/22/23 04:54 Lactic Acid 0.6 mmol/L (0.5-2.2) 07/20/23 07:45 Calcium 7.8 mg/dL (8.5-10.3) L 07/22/23 04:54 Phosphorus 3.7 mg/dL (2.5-5.0) 07/21/23 04:59 Magnesium 1.3 mg/dL (1.7-2.3) L 07/21/23 04:59 Iron 15 ug/dL (50-212) L 07/21/23 04:59 TIBC 169 ug/dL (250-450) L 07/21/23 04:59 % Saturation 9 % (20-50) L 07/21/23 04:59 Transferrin 121 mg/dL (203-362) L 07/21/23 04:59 Total Bilirubin 0.3 mg/dL (0.2-1.0) 07/19/23 14:22 AST 20 IU/L (10-42) 07/19/23 14:22 ALT 11 IU/L (10-60) 07/19/23 14:22 Alkaline Phosphatase 139 IU/L (42-121) H 07/19/23 14:22 Total Protein 5.0 g/dL (6.4-8.9) L 07/19/23 14:22 Albumin 3.1 g/dL (3.2-5.5) L 07/19/23 14:22 Globulin 1.9 g/dL (2.1-4.2) L 07/19/23 14:22 Albumin/Globulin Ratio 1.6 (1.0-2.2) 07/19/23 14:22 Vitamin B12 844 pg/mL (180-914) 07/21/23 04:59 Folate 8.8 ng/mL (5.90 - >24.8) 07/21/23 04:59 Urine Color YELLOW 07/19/23 15:53 Urine Clarity HAZY (CLEAR) 07/19/23 15:53 Urine pH 6.0 PH (5.0-7.5) 07/19/23 15:53 Ur Specific [place] <=1.005 (1.002-1.030) 07/19/23 15:53 Urine Protein NEGATIVE mg/dL (NEGATIVE) 07/19/23 15:53 Urine Glucose (UA) NEGATIVE mg/dL (NEGATIVE) 07/19/23 15:53 Urine Ketones 40 mg/dL (NEGATIVE) H 07/19/23 15:53 Urine Occult Blood TRACE-INTA (NEGATIVE) 07/19/23 15:53 Urine Nitrite NEGATIVE (NEGATIVE) 07/19/23 15:53 Urine Bilirubin NEGATIVE (NEGATIVE) 07/19/23 15:53 Urine Urobilinogen 0.2 (NORMAL) E.U./dL (NORMAL) 07/19/23 15:53 Ur Leukocyte Esterase SMALL (NEGATIVE) H 07/19/23 15:53 Urine RBC 0-5 /HPF (0-5) 07/19/23 15:53 Urine WBC >25 /HPF (0-5) H 07/19/23 15:53 Ur Epithelial Cells FEW Transitional /HPF (<= Few) 07/19/23 15:53 Ur Squamous Epith Cells RARE Squamous (<= Few) 07/19/23 15:53 Urine Bacteria Few /HPF (None Seen) 07/19/23 15:53 Urine Culture Comments INDICATED 07/19/23 15:53 Urine Sodium 53.4 mmol/L 07/20/23 18:40 Nasal Adenovirus (PCR) NOT DETECTED 07/19/23 14:20 Nasal B. parapertussis DNA (PCR) NOT DETECTED 07/19/23 14:20 Nasal Coronavir 229E PCR NOT DETECTED 07/19/23 14:20 Nasal Coronavir HKU1 PCR NOT DETECTED 07/19/23 14:20 Nasal Coronavir NL63 PCR NOT DETECTED 07/19/23 14:20 Nasal Coronavir OC43 PCR NOT DETECTED 07/19/23 14:20 Nasal Enterovir/Rhinovir PCR NOT DETECTED 07/19/23 14:20 Nasal Influenza B PCR NOT DETECTED 07/21/23 12:05 Nasal Influenza A PCR NOT DETECTED 07/21/23 12:05 Nasal Parainfluen 1 PCR NOT DETECTED 07/19/23 14:20 Nasal Parainfluen 2 PCR NOT DETECTED 07/19/23 14:20 Nasal Parainfluen 3 PCR NOT DETECTED 07/19/23 14:20 Nasal Parainfluen 4 PCR NOT DETECTED 07/19/23 14:20 Nasal RSV (PCR) NOT DETECTED 07/21/23 12:05 Nasal B.pertussis DNA PCR NOT DETECTED 07/19/23 14:20 Nasal C.pneumoniae (PCR) NOT DETECTED 07/19/23 14:20 Ever Human Metapneumo PCR NOT DETECTED 07/19/23 14:20 Nasal M.pneumoniae (PCR) NOT DETECTED 07/19/23 14:20 Nasal SARS-CoV-2 (PCR) NOT DETECTED 07/21/23 12:05 ABX Reporting Has patient been on IV antibiotics over the past 48 hours?: Yes Current Medications - Current Medications Current Medications: Active Medications Acetaminophen (Acetaminophen 325 Mg Tablet) 650 mg PO Q4HR PRN PRN Reason: Pain or Fever > 38C (100.4F) Last Admin: 07/22/23 18:50 Dose: 650 mg Cyclobenzaprine HCl (Cyclobenzaprine 10 Mg Tablet) 10 mg PO Q8H PRN PRN Reason: Spasms Last Admin: 07/21/23 21:43 Dose: 10 mg Diclofenac Sodium (Diclofenac Sodium 1% Gel 50 Gm Tube) 2 gm TOP QID PRN PRN Reason: Mild Pain (Level 1-3) Last Admin: 07/22/23 19:36 Dose: 2 gm Enoxaparin Sodium (Enoxaparin 40 Mg/0.4 Ml Syringe) 40 mg SUBQ DAILY [facility] Last Admin: 07/22/23 08:58 Dose: 40 mg Gabapentin (Gabapentin 100 Mg Capsule) 300 mg PO HS [facility] Last Admin: 07/21/23 21:32 Dose: 300 mg Guaifenesin (Guaifenesin/Dextromethorphan 10 Ml Udc) 10 ml PO Q6HR PRN PRN Reason: Cough Last Admin: 07/22/23 18:46 Dose: 10 ml Meropenem 1 gm/ Sodium (Chloride) 100 mls @ 200 mls/hr IV Q12H [facility] Last Admin: 07/22/23 21:08 Dose: 200 mls/hr Sodium Chloride (Normal Saline 0.9%) 1,000 mls @ 120 mls/hr IV .Q8H20M [facility] Last Infusion: 07/22/23 21:07 Dose: 120 mls/hr Ketorolac Tromethamine (Ketorolac 30 Mg/Ml Vial) 30 mg IVP Q8HR PRN PRN Reason: Severe Pain (Level 7-10) Stop: 07/25/23 17:20 Last Admin: 07/22/23 13:51 Dose: 30 mg Montelukast Sodium (Montelukast 10 Mg Tablet) 10 mg PO QPM [facility] Last Admin: 07/21/23 21:32 Dose: 10 mg Multi-Ingredient Ointment (Zinc Oxide 20% Oint 30 Gm Tube) 1 applic TOP PRN PRN PRN Reason: Skin Care Last Admin: 07/21/23 00:11 Dose: 1 applic Ondansetron HCl (Ondansetron 4 Mg/2 Ml Vial) 4 mg IVP Q4HR PRN PRN Reason: Nausea / Vomiting Last Admin: 07/22/23 21:03 Dose: 4 mg Pantoprazole Sodium (Pantoprazole 40 Mg Tablet) 40 mg PO QDAC [facility] Last Admin: 07/22/23 06:36 Dose: 40 mg Saccharomyces Boulardii (Saccharomyces Boulardii 250 Mg Capsule) 250 mg PO BIDWM [facility] Last Admin: 07/22/23 16:14 Dose: 250 mg Sodium Chloride (Sodium Chloride Flush 0.9% 10 Ml Syringe) 10 ml IVP PRN PRN PRN Reason: NEEDED PER PROVIDER ORDERS Last Admin: 07/21/23 20:58 Dose: 10 ml Sodium Chloride (Sodium Chloride Flush 0.9% 10 Ml Syringe) 10 ml IVP 0100,0900,1700 ARLENE Last Admin: 07/22/23 16:15 Dose: 10 ml Throat Lozenges (Benzocaine/Menthol Lozenge) 1 lozenge MM Q2HR PRN PRN Reason: Throat pain Last Admin: 07/22/23 18:46 Dose: 1 lozenge Celecoxib [CeleBREX] 200 mg PO DAILY PRN 07/11/14 Cyclobenzaprine [Flexeril] 10 mg PO Q8H PRN 07/11/14 Esomeprazole Magnesium [Nexium 24Hr] 20 mg PO DAILY 07/11/14 Montelukast [Singulair] 10 mg PO DAILY 07/11/14 Simvastatin 40 mg PO DAILY 07/11/14 Losartan [Cozaar] 50 mg PO DAILY 07/16/23 Amlodipine Besylate [Norvasc] 2.5 mg PO BID 07/19/23 Gabapentin [Neurontin] 300 mg PO HS 07/19/23 Tbo-Filgrastim [Granix] 300 mcg SUBQ DAILY PRN 07/20/23
[2023-07-23 05:57] LABS: BASOPHILS # (AUTO) 0.1 10^3/uL (0.0-0.1); BASOPHILS % (AUTO) 1.7 %; EOSINOPHILS # (AUTO) 0.4 10^3/uL (0.0-0.7); EOSINOPHILS % (AUTO) 7.8 %; HCT - HEMATOCRIT 30.8 % (37.0-47.0); HGB - HEMOGLOBIN 10.2 g/dL (12.0-16.0); LYMPHOCYTES # (AUTO) 1.6 10^3/uL (1.5-3.5); LYMPHOCYTES % (AUTO) 33.3 %; MEAN CORPUSCULAR HEMOGLOBIN 32.7 pg (27.0-31.0); MEAN CORPUSCULAR HGB CONC 33.1 g/dL (32.0-36.0); MEAN CORPUSCULAR VOLUME 98.7 fL (81.0-99.0); MEAN PLATELET VOLUME 8.3 fL (7.9-10.8); MONOCYTES # (AUTO) 0.5 10^3/uL (0.0-1.0); MONOCYTES % (AUTO) 10.8 %; NEUTROPHILS # (AUTO) 2.2 10^3/uL (1.5-6.6); NEUTROPHILS % (AUTO) 46.2 %; PLT - PLATELET COUNT 283 10^3/uL (130-450); RED BLOOD COUNT 3.12 10^6/uL (4.20-5.40); RED CELL DISTRIBUTION WIDTH 15.1 % (12.0-15.0); WHITE BLOOD COUNT 4.7 x10^3/uL (4.8-10.8)
[2023-07-23 06:15] LABS: BUN - BLOOD UREA NITROGEN < 2 mg/dL (6-20); CARBON DIOXIDE - CO2 25 mmol/L (21-32); CHLORIDE 97 mmol/L (101-111); CREATININE 0.3 mg/dL (0.6-1.3); GFR - MDRD 215 (>89); GLUCOSE 81 mg/dL (74-104); POTASSIUM 3.4 mmol/L (3.5-4.5); SODIUM 129 mmol/L (135-145)
[2023-07-23] MEDS ORDERED: FAT EMULSION 20% 250 ML IV SCH (12:00)
[2023-07-23] MEDS: PPN (CLINIMIX E 4.25/5) 2,000 ML with MULTIVITAMIN 10 ML, TRACE ELEMENTS 1 ML IV SCH (13:08)
--- NOTE | 2023-07-23 18:23 | PROVIDER PROGRESS NOTE ---
Subjective - Prog Note Date Prog Note Date: 07/23/23 Prog Note Time: 15:00 - Subjective Subjective: States still feels terrible, has no appetite, is very cold, wants another warm blanket. Still having fevers. No nausea. No diarrhea or BM x 1 week. Pulled out IV by mistake, explained needs a new one for PPN. Denies chest pain, dyspnea. Current Medications - Current Medications Current Medications: Active Medications Generic Name Dose Route Start Last Admin Trade Name Freq PRN Reason Stop Dose Admin Acetaminophen 650 mg 07/20/23 12:37 07/23/23 17:49 Acetaminophen 325 Mg Tablet PO 650 mg Q4HR PRN Administration Pain or Fever > 38C (100.4F) Cyclobenzaprine HCl 10 mg 07/20/23 17:20 07/21/23 21:43 Cyclobenzaprine 10 Mg Tablet PO 10 mg Q8H PRN Administration Spasms Diclofenac Sodium 2 gm 07/20/23 17:57 07/23/23 13:16 Diclofenac Sodium 1% Gel 50 Gm Tube TOP 2 gm QID PRN Administration Mild Pain (Level 1-3) Enoxaparin Sodium 40 mg 07/20/23 09:00 07/23/23 08:11 Enoxaparin 40 Mg/0.4 Ml Syringe SUBQ 40 mg DAILY ARLENE Administration Gabapentin 300 mg 07/19/23 21:00 07/22/23 22:04 Gabapentin 100 Mg Capsule PO 300 mg HS ARLENE Administration Guaifenesin 10 ml 07/21/23 19:14 07/23/23 08:34 Guaifenesin/Dextromethorphan 10 Ml Udc PO 10 ml Q6HR PRN Administration Cough Meropenem 1 gm/ Sodium 100 mls @ 200 mls/hr 07/20/23 09:00 07/23/23 09:00 Chloride IV Infused Q12H ARLENE Infusion Multivitamins 10 ml/ TRACE 2,011 mls @ 83 mls/hr 07/23/23 12:00 07/23/23 13:08 ELEMENTS 1 ml/ Amino Acids/ IV 83 mls/hr Electrolytes/Dextrose 1200 ARLENE Administration Protocol Ketorolac Tromethamine 30 mg 07/20/23 17:21 07/23/23 14:53 Ketorolac 30 Mg/Ml Vial IVP 07/25/23 17:20 30 mg Q8HR PRN Administration Severe Pain (Level 7-10) Montelukast Sodium 10 mg 07/20/23 21:00 07/22/23 22:05 Montelukast 10 Mg Tablet PO 10 mg QPM ARLENE Administration Multi-Ingredient Ointment 1 applic 07/20/23 06:03 07/21/23 00:11 Zinc Oxide 20% Oint 30 Gm Tube TOP 1 applic PRN PRN Administration Skin Care Ondansetron HCl 4 mg 07/20/23 07:35 07/23/23 17:50 Ondansetron 4 Mg/2 Ml Vial IVP 4 mg Q4HR PRN Administration Nausea / Vomiting Pantoprazole Sodium 40 mg 07/20/23 08:00 07/23/23 07:04 Pantoprazole 40 Mg Tablet PO 40 mg QDAC ARLENE Administration Saccharomyces Boulardii 250 mg 07/21/23 08:00 07/23/23 17:15 Saccharomyces Boulardii 250 Mg Capsule PO 250 mg BIDWM ARLENE Administration Sodium Chloride 10 ml 07/19/23 20:19 07/21/23 20:58 Sodium Chloride Flush 0.9% 10 Ml Syringe IVP 10 ml PRN PRN Administration NEEDED PER PROVIDER ORDERS Sodium Chloride 10 ml 07/20/23 01:00 07/23/23 16:09 Sodium Chloride Flush 0.9% 10 Ml Syringe IVP Not Given 0100,0900,1700 [facility] Throat Lozenges 1 lozenge 07/20/23 23:59 07/23/23 08:35 Benzocaine/Menthol Lozenge MM 1 lozenge Q2HR PRN Administration Throat pain Celecoxib [CeleBREX] 200 mg PO DAILY PRN 07/11/14 Cyclobenzaprine [Flexeril] 10 mg PO Q8H PRN 07/11/14 Esomeprazole Magnesium [Nexium 24Hr] 20 mg PO DAILY 07/11/14 Montelukast [Singulair] 10 mg PO DAILY 07/11/14 Simvastatin 40 mg PO DAILY 07/11/14 Losartan [Cozaar] 50 mg PO DAILY 07/16/23 Amlodipine Besylate [Norvasc] 2.5 mg PO BID 07/19/23 Gabapentin [Neurontin] 300 mg PO HS 07/19/23 Tbo-Filgrastim [Granix] 300 mcg SUBQ DAILY PRN 07/20/23 Objective - Vital Signs/Intake & Output Vital Signs: Vital Signs x48h Temp Pulse Resp BP Pulse Ox 07/23/23 16:53 37.1 C 94 16 136/77 H 94 Intake & Output: Intake & Output 07/20/23 07/21/23 07/22/23 07/23/23 23:59 23:59 23:59 23:59 Intake Total 3298.333 3826 3660 1456 Output Total 800 1950 800 Balance 2498.333 1876 2860 1456 - Objective General Appearance: positive: Other (Ill-appearing, low energy) Respiratory: positive: Chest non-tender, No respiratory distress, Breath sounds nml Cardiovascular: positive: Regular rate & rhythm, No murmur Abdomen: positive: Non-tender Skin: positive: No rash, Pallor Extremities: positive: Other (RLE with 1+ edema (not new per patient and staff)) Neurologic/Psychiatric: positive: Weakness, Other (Drowsy but awakens and is oriented. Withdrawn.) - Lab Results Fish Bones: 07/23/23 05:48 07/23/23 05:48 Other Labs: Lab Results x24hrs 07/23/23 07/23/23 07/23/23 Range/Units 05:48 05:48 05:48 WBC 4.7 L (4.8-10.8) x10^3/uL RBC 3.12 L (4.20-5.40) 10^6/uL Hgb 10.2 L (12.0-16.0) g/dL Hct 30.8 L (37.0-47.0) % MCV 98.7 (81.0-99.0) fL MCH 32.7 H (27.0-31.0) pg MCHC 33.1 (32.0-36.0) g/dL RDW 15.1 H (12.0-15.0) % Plt Count 283 (130-450) 10^3/uL MPV 8.3 (7.9-10.8) fL Neut # (Auto) 2.2 (1.5-6.6) 10^3/uL Lymph # (Auto) 1.6 (1.5-3.5) 10^3/uL [place] # (Auto) 0.5 (0.0-1.0) 10^3/uL Eos # (Auto) 0.4 (0.0-0.7) 10^3/uL Baso # (Auto) 0.1 (0.0-0.1) 10^3/uL Absolute Nucleated RBC 0.00 x10^3/uL Nucleated RBC % 0.0 /100WBC Sodium 129 L (135-145) mmol/L Potassium 3.4 L (3.5-4.5) mmol/L Chloride 97 L (101-111) mmol/L Carbon Dioxide 25 (21-32) mmol/L Anion Gap 7.0 (6-13) BUN < 2 L (6-20) mg/dL Creatinine 0.3 L (0.6-1.3) mg/dL Estimated GFR (MDRD) 215 (>89) Glucose 81 (74-104) mg/dL Calcium 8.0 L (8.5-10.3) mg/dL Magnesium 1.4 L (1.7-2.3) mg/dL ABX Reporting Has patient been on IV antibiotics over the past 48 hours?: Yes Assessment/Plan - Problem List (1) UTI due to extended-spectrum beta lactamase (ESBL) producing Escherichia coli Impression: Urine cx from 07/10 grew ESBL E coli. S/p 3 courses of PO antibiotics as outpatient (Cipro, Bactrim, Macrobid) with persistent symptoms with prompted her ED visit. Presented with fevers, chills, malaise, lack of energy. No dysuria. P oor appetite. No abdominal or back pain. Plan: Cont meropenem. Do not recommend PO antibiotics as she has failed 3 courses. Continue probiotics. (2) Breast CA Impression: Triple negative breast CA, on chemo every Thursday (except last 2 weeks). Treatment at [facility]. Has been on Taxol, paraplatin, now on Keytruda (pembrolizumab). Case discussed with oncology per prior notes who felt the Keytruda likely caused the colitis. Plan: Continue to hold Keytruda. Outpatient follow up with oncology (3) Colitis Impression: Suspect due to use of Keytruda. CT showed mild diffuse colonic inflammation. Has had associated nausea, vomiting, diarrhea (now improved). Today reports dry heaves and poor appetite. Very poor PO intake. Plan: Start PPN (4) Nausea, vomiting and diarrhea Impression: Improved. Now with dry heaves and poor appetite. Plan: PPN. Anti-emetics. (5) Anemia Impression: Suspect multifactorial due to active cancer on Keytruda and inflammatory block from acute illness. No evidence of acute bleeding. B12 normal. Iron low at 15, s/p 2 doses IV iron. Plan: Monitor H/H as indicated (6) Protein calorie malnutrition Impression: Poor PO appetite for several days. Also with electrolyte imbalances requiring replacement. Plan: PPN. Replace lytes. (7) Hyponatremia Impression: Suspect due to poor nutrition. Improved. Plan: PPN. Monitor sodium. (8) Abnormal EKG Impression: EKG on admit with inferior Q waves and anterior Q waves. No chest pain. Last echo EF 60-65% with diastolic dysfunction. No concern for ACS. Plan: Outpatient follow up (9) Hypotension Impression: Present on admit, improved after IVF. Does have poor PO intake, now on PPN. Plan: monitor BP (10) Hypomagnesemia Impression: Plan: Monitor. replace as needed. Now on PPN. (11) Hypokalemia Impression: Plan: replace as needed. Monitor. Now on PPN. (12) Chronic pain Impression: Has chronic muscle spasms and headaches. Plan: continue gabapentin, prn Voltaren gel, prn Toradol, Tylenol
[2023-07-24 05:51] LABS: BASOPHILS # (AUTO) 0.1 10^3/uL (0.0-0.1); BASOPHILS % (AUTO) 1.2 %; EOSINOPHILS # (AUTO) 0.4 10^3/uL (0.0-0.7); EOSINOPHILS % (AUTO) 7.5 %; HCT - HEMATOCRIT 32.8 % (37.0-47.0); HGB - HEMOGLOBIN 10.5 g/dL (12.0-16.0); LYMPHOCYTES # (AUTO) 1.4 10^3/uL (1.5-3.5); LYMPHOCYTES % (AUTO) 28.7 %; MEAN CORPUSCULAR HEMOGLOBIN 31.6 pg (27.0-31.0); MEAN CORPUSCULAR VOLUME 98.8 fL (81.0-99.0); MEAN PLATELET VOLUME 8.3 fL (7.9-10.8); MONOCYTES # (AUTO) 0.5 10^3/uL (0.0-1.0); MONOCYTES % (AUTO) 9.3 %; NEUTROPHILS # (AUTO) 2.6 10^3/uL (1.5-6.6); NEUTROPHILS % (AUTO) 52.9 %; PLT - PLATELET COUNT 270 10^3/uL (130-450); RED BLOOD COUNT 3.32 10^6/uL (4.20-5.40); RED CELL DISTRIBUTION WIDTH 15.2 % (12.0-15.0); WHITE BLOOD COUNT 4.9 x10^3/uL (4.8-10.8)
[2023-07-24 06:09] LABS: ALBUMIN 2.8 g/dL (3.2-5.5); ALBUMIN/GLOBULIN RATIO 1.4 (1.0-2.2); BILIRUBIN,TOTAL 0.4 mg/dL (0.2-1.0); CALCIUM 8.4 mg/dL (8.5-10.3); CREATININE 0.3 mg/dL (0.6-1.3); MAGNESIUM 1.4 mg/dL (1.7-2.3); PHOSPHORUS 3.4 mg/dL (2.5-5.0); POTASSIUM 3.5 mmol/L (3.5-4.5); TOTAL PROTEIN 4.8 g/dL (6.4-8.9)
[2023-07-24] MEDS: MAGNESIUM SULFATE 2 GRAM 2 GM/50 ML BAG IV ONE (10:58)
--- NOTE | 2023-07-24 15:52 | PROVIDER PROGRESS NOTE ---
Subjective - Prog Note Date Prog Note Date: 07/24/23 Prog Note Time: 15:45 - Subjective Pt reports feeling: No change (States feels the same. Did keep down her pills down this morning. Still not eating much. Has dry mouth, encouraged ice chips. Has long bone pain from Keytruda, this is not new.) Current Medications - Current Medications Current Medications: Active Medications Generic Name Dose Route Start Last Admin Trade Name Freq PRN Reason Stop Dose Admin Acetaminophen 650 mg 07/20/23 12:37 07/24/23 11:14 Acetaminophen 325 Mg Tablet PO 650 mg Q4HR PRN Administration Pain or Fever > 38C (100.4F) Cyclobenzaprine HCl 10 mg 07/20/23 17:20 07/23/23 20:59 Cyclobenzaprine 10 Mg Tablet PO 10 mg Q8H PRN Administration Spasms Diclofenac Sodium 2 gm 07/20/23 17:57 07/24/23 10:06 Diclofenac Sodium 1% Gel 50 Gm Tube TOP 2 gm QID PRN Administration Mild Pain (Level 1-3) Enoxaparin Sodium 40 mg 07/20/23 09:00 07/24/23 09:28 Enoxaparin 40 Mg/0.4 Ml Syringe SUBQ 40 mg DAILY ARLENE Administration Gabapentin 300 mg 07/19/23 21:00 07/23/23 20:42 Gabapentin 100 Mg Capsule PO 300 mg HS ARLENE Administration Guaifenesin 10 ml 07/21/23 19:14 07/23/23 20:59 Guaifenesin/Dextromethorphan 10 Ml Udc PO 10 ml Q6HR PRN Administration Cough Meropenem 1 gm/ Sodium 100 mls @ 200 mls/hr 07/20/23 09:00 07/24/23 10:58 Chloride IV Infused Q12H ARLENE Infusion Multivitamins 10 ml/ TRACE 2,011 mls @ 83 mls/hr 07/23/23 12:00 07/24/23 14:35 ELEMENTS 1 ml/ Amino Acids/ IV 83 mls/hr Electrolytes/Dextrose 1200 ARLENE Administration Protocol Ketorolac Tromethamine 30 mg 07/20/23 17:21 07/24/23 12:36 Ketorolac 30 Mg/Ml Vial IVP 07/25/23 17:20 30 mg Q8HR PRN Administration Severe Pain (Level 7-10) Montelukast Sodium 10 mg 07/20/23 21:00 07/23/23 20:42 Montelukast 10 Mg Tablet PO 10 mg QPM ARLENE Administration Multi-Ingredient Ointment 1 applic 07/20/23 06:03 07/21/23 00:11 Zinc Oxide 20% Oint 30 Gm Tube TOP 1 applic PRN PRN Administration Skin Care Ondansetron HCl 4 mg 07/20/23 07:35 07/23/23 17:50 Ondansetron 4 Mg/2 Ml Vial IVP 4 mg Q4HR PRN Administration Nausea / Vomiting Pantoprazole Sodium 40 mg 07/20/23 08:00 07/24/23 06:41 Pantoprazole 40 Mg Tablet PO 40 mg QDAC ARLENE Administration Prochlorperazine Edisylate 10 mg 07/24/23 12:22 Prochlorperazine 10 Mg/2 Ml Vial IVP Q6HR PRN Nausea / Vomiting Prochlorperazine Maleate 5 mg 07/24/23 12:22 Prochlorperazine 5 Mg Tablet PO Q6HR PRN Nausea / Vomiting Saccharomyces Boulardii 250 mg 07/21/23 08:00 07/24/23 09:28 Saccharomyces Boulardii 250 Mg Capsule PO 250 mg BIDWM ARLENE Administration Sodium Chloride 10 ml 07/19/23 20:19 07/24/23 04:31 Sodium Chloride Flush 0.9% 10 Ml Syringe IVP 10 ml PRN PRN Administration NEEDED PER PROVIDER ORDERS Sodium Chloride 10 ml 07/20/23 01:00 07/24/23 09:28 Sodium Chloride Flush 0.9% 10 Ml Syringe IVP 10 ml 0100,0900,1700 ARLENE Administration Throat Lozenges 1 lozenge 07/20/23 23:59 07/23/23 20:59 Benzocaine/Menthol Lozenge MM 1 lozenge Q2HR PRN Administration Throat pain Celecoxib [CeleBREX] 200 mg PO DAILY PRN 07/11/14 Cyclobenzaprine [Flexeril] 10 mg PO Q8H PRN 07/11/14 Esomeprazole Magnesium [Nexium 24Hr] 20 mg PO DAILY 07/11/14 Montelukast [Singulair] 10 mg PO DAILY 07/11/14 Simvastatin 40 mg PO DAILY 07/11/14 Losartan [Cozaar] 50 mg PO DAILY 07/16/23 Amlodipine Besylate [Norvasc] 2.5 mg PO BID 07/19/23 Gabapentin [Neurontin] 300 mg PO HS 07/19/23 Tbo-Filgrastim [Granix] 300 mcg SUBQ DAILY PRN 07/20/23 Objective - Vital Signs/Intake & Output Reviewed Vital Signs: Yes Vital Signs: Vital Signs x48h Temp Pulse Resp BP Pulse Ox 07/24/23 08:06 36.6 C 101 H 16 119/67 95 Intake & Output: Intake & Output 07/21/23 07/22/23 07/23/23 07/24/23 23:59 23:59 23:59 23:59 Intake Total 3826 3660 1924 2111 Output Total 1950 268 67 8137 Balance 1876 2860 1874 361 - Objective General Appearance: positive: No acute distress, Other (chronically ill- appearing) Respiratory: positive: No respiratory distress, Breath sounds nml Cardiovascular: positive: Regular rate & rhythm, No murmur Skin: positive: No rash, Warm, Dry Neurologic/Psychiatric: positive: Oriented x3, Depressed mood/affect - Lab Results Fish Bones: 07/24/23 05:16 07/24/23 05:16 Other Labs: Lab Results x24hrs 07/24/23 07/24/23 Range/Units 05:16 05:16 WBC 4.9 (4.8-10.8) x10^3/uL RBC 3.32 L (4.20-5.40) 10^6/uL Hgb 10.5 L (12.0-16.0) g/dL Hct 32.8 L (37.0-47.0) % MCV 98.8 (81.0-99.0) fL MCH 31.6 H (27.0-31.0) pg MCHC 32.0 (32.0-36.0) g/dL RDW 15.2 H (12.0-15.0) % Plt Count 270 (130-450) 10^3/uL MPV 8.3 (7.9-10.8) fL Neut # (Auto) 2.6 (1.5-6.6) 10^3/uL Lymph # (Auto) 1.4 L (1.5-3.5) 10^3/uL [place] # (Auto) 0.5 (0.0-1.0) 10^3/uL Eos # (Auto) 0.4 (0.0-0.7) 10^3/uL Baso # (Auto) 0.1 (0.0-0.1) 10^3/uL Absolute Nucleated RBC 0.00 x10^3/uL Nucleated RBC % 0.0 /100WBC Sodium 128 L (135-145) mmol/L Potassium 3.5 (3.5-4.5) mmol/L Chloride 94 L (101-111) mmol/L Carbon Dioxide 29 (21-32) mmol/L Anion Gap 5.0 L (6-13) BUN 6 (6-20) mg/dL Creatinine 0.3 L (0.6-1.3) mg/dL Estimated GFR (MDRD) 215 (>89) Glucose 116 H (74-104) mg/dL Calcium 8.4 L (8.5-10.3) mg/dL Phosphorus 3.4 (2.5-5.0) mg/dL Magnesium 1.4 L (1.7-2.3) mg/dL Total Bilirubin 0.4 (0.2-1.0) mg/dL AST 19 (10-42) IU/L ALT 10 (10-60) IU/L Alkaline Phosphatase 121 (42-121) IU/L Total Protein 4.8 L (6.4-8.9) g/dL Albumin 2.8 L (3.2-5.5) g/dL Globulin 2.0 L (2.1-4.2) g/dL Albumin/Globulin Ratio 1.4 (1.0-2.2) Prealbumin 6 L (17-34) mg/dL Triglycerides 296 (48-352) mg/dL - Other Results/Comments Other Results/Comments: albumin 2.8, pre-albumin 6.0 ABX Reporting Has patient been on IV antibiotics over the past 48 hours?: Yes Assessment/Plan - Problem List (1) UTI due to extended-spectrum beta lactamase (ESBL) producing Escherichia coli Impression: Urine cx from 2/ grew ESBL E coli. S/p 3 courses of PO antibiotics as outpatient (Cipro, Bactrim, Macrobid) with persistent symptoms with prompted her ED visit. Presented with fevers, chills, malaise, lack of energy. No dysuria. Poor appetite. No abdominal or back pain. Plan: Cont meropenem through 07/25. Continue probiotics. (2) Breast CA Impression: Triple negative breast CA, on chemo every Thursday (except last 2 weeks). Treatment at [facility]. Has been on Taxol, paraplatin, now on Keytruda (pembrolizumab). Case discussed with oncology per prior notes who felt the Keytruda likely caused the colitis. Plan: Continue to hold Keytruda. Outpatient follow up with oncology (3) Colitis Impression: Suspect due to use of Keytruda. CT showed mild diffuse colonic inflammation. Has had associated nausea, vomiting, diarrhea (now improved). Today reports dry heaves and poor appetite. Very poor PO intake. Plan: Start PPN (4) Nausea, vomiting and diarrhea Impression: Reports dry heaves (a bit improved today) and poor appetite. No vomiting or diarrhea. Plan: PPN. Anti-emetics. (5) Anemia Impression: Suspect multifactorial due to active cancer on Keytruda and inflammatory block from acute illness. No evidence of acute bleeding. B12 normal. Iron low at 15, s/p 2 doses IV iron. Plan: Monitor H/H as indicated Qualifiers: Anemia type: unspecified type Qualified Code(s): D64.9 - Anemia, unspecified (6) Protein calorie malnutrition Impression: Poor PO appetite for several days. Also has electrolyte imbalances requiring replacement. Albumin 2.8. Prealbumin 6.0. Plan: PPN. Replace lytes. Qualifiers: Protein-calorie malnutrition severity: severe Qualified Code(s): E43 - Unspecified severe protein-calorie malnutrition (7) Hyponatremia Impression: Suspect due to poor nutrition. Plan: PPN. Monitor sodium. Consider IVF. (8) Abnormal EKG Impression: EKG on admit with inferior Q waves and anterior Q waves. No chest pain. Last echo EF 60-65% with diastolic dysfunction. No concern for ACS. Plan: Outpatient follow up (9) Hypotension Impression: Resolved Qualifiers: Hypotension type: unspecified hypotension type Qualified Code(s): I95.9 - Hypotension, unspecified (10) Hypomagnesemia Impression: Due to poor nutrition. Plan: Monitor. replace as needed. Now on PPN. (11) Hypokalemia Impression: Due to poor nutrition. Plan: replace as needed. Monitor. Now on PPN. (12) Chronic pain Impression: Has chronic muscle spasms and headaches. Also has pain in long bones from Keytruda. Plan: continue gabapentin, prn Voltaren gel, prn Toradol, Tylenol
--- NOTE | 2023-07-25 10:11 | PROVIDER PROGRESS NOTE ---
Subjective - Prog Note Date Prog Note Date: 07/25/23 Prog Note Time: 10:09 - Subjective Pt reports feeling: Improved (Had a period of feeling good last night, woke up this morning and felt poorly again. Overall this is improvement. Pleased she can "see her knuckles".) Current Medications - Current Medications Current Medications: Active Medications Generic Name Dose Route Start Last Admin Trade Name Freq PRN Reason Stop Dose Admin Acetaminophen 650 mg 07/20/23 12:37 07/24/23 22:09 Acetaminophen 325 Mg Tablet PO 650 mg Q4HR PRN Administration Pain or Fever > 38C (100.4F) Cyclobenzaprine HCl 10 mg 07/20/23 17:20 07/23/23 20:59 Cyclobenzaprine 10 Mg Tablet PO 10 mg Q8H PRN Administration Spasms Diclofenac Sodium 2 gm 07/20/23 17:57 07/24/23 10:06 Diclofenac Sodium 1% Gel 50 Gm Tube TOP 2 gm QID PRN Administration Mild Pain (Level 1-3) Enoxaparin Sodium 40 mg 07/20/23 09:00 07/25/23 09:12 Enoxaparin 40 Mg/0.4 Ml Syringe SUBQ 40 mg DAILY ARLENE Administration Gabapentin 300 mg 07/19/23 21:00 07/24/23 21:02 Gabapentin 100 Mg Capsule PO 300 mg HS ARLENE Administration Guaifenesin 10 ml 07/21/23 19:14 07/23/23 20:59 Guaifenesin/Dextromethorphan 10 Ml Udc PO 10 ml Q6HR PRN Administration Cough Meropenem 1 gm/ Sodium 100 mls @ 200 mls/hr 07/20/23 09:00 07/25/23 09:12 Chloride IV 07/25/23 23:00 200 mls/hr Q12H ARLENE Administration Multivitamins 10 ml/ TRACE 2,011 mls @ 83 mls/hr 07/23/23 12:00 07/24/23 21:19 ELEMENTS 1 ml/ Amino Acids/ IV 83 mls/hr Electrolytes/Dextrose 1200 ARLENE Infusion Protocol Ketorolac Tromethamine 30 mg 07/20/23 17:21 07/25/23 09:12 Ketorolac 30 Mg/Ml Vial IVP 07/25/23 17:20 30 mg Q8HR PRN Administration Severe Pain (Level 7-10) Montelukast Sodium 10 mg 07/20/23 21:00 07/24/23 21:03 Montelukast 10 Mg Tablet PO 10 mg QPM ARLENE Administration Multi-Ingredient Ointment 1 applic 07/20/23 06:03 07/25/23 00:10 Zinc Oxide 20% Oint 30 Gm Tube TOP 1 applic PRN PRN Administration Skin Care Ondansetron HCl 4 mg 07/20/23 07:35 07/25/23 06:04 Ondansetron 4 Mg/2 Ml Vial IVP 4 mg Q4HR PRN Administration Nausea / Vomiting Pantoprazole Sodium 40 mg 07/20/23 08:00 07/25/23 05:59 Pantoprazole 40 Mg Tablet PO 40 mg QDAC ARLENE Administration Prochlorperazine Edisylate 10 mg 07/24/23 12:22 Prochlorperazine 10 Mg/2 Ml Vial IVP Q6HR PRN Nausea / Vomiting Prochlorperazine Maleate 5 mg 07/24/23 12:22 Prochlorperazine 5 Mg Tablet PO Q6HR PRN Nausea / Vomiting Saccharomyces Boulardii 250 mg 07/21/23 08:00 07/25/23 09:11 Saccharomyces Boulardii 250 Mg Capsule PO 250 mg BIDWM ARLENE Administration Sodium Chloride 10 ml 07/19/23 20:19 07/25/23 06:05 Sodium Chloride Flush 0.9% 10 Ml Syringe IVP 10 ml PRN PRN Administration NEEDED PER PROVIDER ORDERS Sodium Chloride 10 ml 07/20/23 01:00 07/25/23 09:12 Sodium Chloride Flush 0.9% 10 Ml Syringe IVP 10 ml 0100,0900,1700 ARLENE Administration Throat Lozenges 1 lozenge 07/20/23 23:59 07/24/23 22:19 Benzocaine/Menthol Lozenge MM 1 lozenge Q2HR PRN Administration Throat pain Celecoxib [CeleBREX] 200 mg PO DAILY PRN 07/11/14 Cyclobenzaprine [Flexeril] 10 mg PO Q8H PRN 07/11/14 Esomeprazole Magnesium [Nexium 24Hr] 20 mg PO DAILY 07/11/14 Montelukast [Singulair] 10 mg PO DAILY 07/11/14 Simvastatin 40 mg PO DAILY 07/11/14 Losartan [Cozaar] 50 mg PO DAILY 07/16/23 Amlodipine Besylate [Norvasc] 2.5 mg PO BID 07/19/23 Gabapentin [Neurontin] 300 mg PO HS 07/19/23 Tbo-Filgrastim [Granix] 300 mcg SUBQ DAILY PRN 07/20/23 Objective - Vital Signs/Intake & Output Reviewed Vital Signs: Yes Vital Signs: Vital Signs x48h Temp Pulse Resp BP Pulse Ox 07/25/23 08:47 36.2 C L 107 H 18 108/65 92 Intake & Output: Intake & Output 07/22/23 07/23/23 07/24/23 07/25/23 23:59 23:59 23:59 23:59 Intake Total 3660 1924 2819.867 100 Output Total 542 46 0494 1200 Balance 2860 1874 -430.133 -1100 - Objective General Appearance: positive: No acute distress, Other (Drowsy, petite female with alopecia, awakens easily) Respiratory: positive: No respiratory distress Skin: positive: No rash, Dry Neurologic/Psychiatric: positive: Oriented x3, Weakness - Lab Results Fish Bones: 07/24/23 05:16 07/24/23 05:16 ABX Reporting Has patient been on IV antibiotics over the past 48 hours?: Yes Assessment/Plan - Problem List (1) UTI due to extended-spectrum beta lactamase (ESBL) producing Escherichia coli Impression: Urine cx from 07/10 grew ESBL E coli. S/p 3 courses of PO antibiotics outpatient (Cipro, Bactrim, Macrobid) with persistent symptoms with prompted her ED visit. Presented with fevers, chills, malaise, lack of energy. No dysuria. Poor appetite. No abdominal or back pain. Plan: Cont meropenem through 07/25. Continue probiotics. (2) Breast CA Impression: Triple negative breast CA, on chemo every Thursday (except last 2 weeks prior to admit). Treatment at [facility]. Has been on Taxol, paraplatin, most recently on Keytruda (pembrolizumab). Case discussed with oncology who felt the Keytruda likely caused the colitis. Plan: Continue to hold Keytruda. Outpatient follow up with oncology (3) Colitis Impression: Suspect due to Keytruda. CT showed mild diffuse colonic inflammation. Has had associated nausea, vomiting, diarrhea (now improved). Today reports dry heaves and poor appetite. Poor PO intake, encouraged to take more PO. Plan: On PPN but cannot be on PPN/TPN at [facility] so will need to continue to encourage PO vs consider enteral feeding (4) Nausea, vomiting and diarrhea Impression: Reports dry heaves (improved today) and poor appetite. No vomiting or diarrhea. Plan: PPN. Anti-emetics. (5) Anemia Impression: Stable. Suspect multifactorial due to active cancer on Keytruda and inflammatory block from acute illness. No evidence of acute bleeding. B12 normal. Iron low at 15, s/p 2 doses IV iron. Plan: Monitor H/H as indicated Qualifiers: Anemia type: unspecified type Qualified Code(s): D64.9 - Anemia, unspecified (6) Protein calorie malnutrition Impression: Poor PO appetite for several days. Also has electrolyte imbalances requiring replacement. Low albumin and prealbumin. Plan: PPN. Recheck lytes in AM. Encourage pt to take PO Qualifiers: Protein-calorie malnutrition severity: severe Qualified Code(s): E43 - Unspecified severe protein-calorie malnutrition (7) Hyponatremia Impression: Suspect due to poor nutrition. Plan: PPN. Monitor sodium. Consider IVF. (8) Abnormal EKG Impression: EKG on admit with inferior Q waves and anterior Q waves. No chest pain. Last echo EF 60-65% with diastolic dysfunction. No concern for ACS. Plan: Outpatient follow up (9) Hypotension Impression: Resolved Qualifiers: Hypotension type: unspecified hypotension type Qualified Code(s): I95.9 - Hypotension, unspecified (10) Hypomagnesemia Impression: Due to poor nutrition. Plan: Monitor. replace as needed. Now on PPN. (11) Hypokalemia Impression: Due to poor nutrition. Plan: replace as needed. Monitor. Now on PPN. (12) Chronic pain Impression: Has chronic muscle spasms and headaches. Also has pain in long bones from Keytruda. Plan: continue gabapentin, prn Voltaren gel, prn Toradol, Tylenol Qualifiers: Chronic pain type: other chronic pain Qualified Code(s): G89.29 - Other chronic pain
[2023-07-25] MEDS: PROCHLORPERAZINE 10 MG/2 ML VIAL IVP PRN (14:22)
[2023-07-26 05:07] LABS: BASOPHILS # (AUTO) 0.1 10^3/uL (0.0-0.1); BASOPHILS % (AUTO) 1.2 %; EOSINOPHILS # (AUTO) 0.5 10^3/uL (0.0-0.7); EOSINOPHILS % (AUTO) 9.4 %; HCT - HEMATOCRIT 30.7 % (37.0-47.0); HGB - HEMOGLOBIN 9.9 g/dL (12.0-16.0); LYMPHOCYTES # (AUTO) 1.7 10^3/uL (1.5-3.5); LYMPHOCYTES % (AUTO) 29.4 %; MEAN CORPUSCULAR HEMOGLOBIN 31.7 pg (27.0-31.0); MEAN CORPUSCULAR HGB CONC 32.2 g/dL (32.0-36.0); MEAN CORPUSCULAR VOLUME 98.4 fL (81.0-99.0); MEAN PLATELET VOLUME 8.9 fL (7.9-10.8); MONOCYTES # (AUTO) 0.6 10^3/uL (0.0-1.0); MONOCYTES % (AUTO) 10.4 %; NEUTROPHILS # (AUTO) 2.8 10^3/uL (1.5-6.6); NEUTROPHILS % (AUTO) 49.3 %; PLT - PLATELET COUNT 242 10^3/uL (130-450); RED BLOOD COUNT 3.12 10^6/uL (4.20-5.40); RED CELL DISTRIBUTION WIDTH 15.9 % (12.0-15.0); WHITE BLOOD COUNT 5.8 x10^3/uL (4.8-10.8)
[2023-07-26 05:22] LABS: ALBUMIN 2.6 g/dL (3.2-5.5); ALBUMIN/GLOBULIN RATIO 1.4 (1.0-2.2); BILIRUBIN,TOTAL 0.3 mg/dL (0.2-1.0); CALCIUM 8.7 mg/dL (8.5-10.3); CREATININE 0.4 mg/dL (0.6-1.3); MAGNESIUM 1.8 mg/dL (1.7-2.3); PHOSPHORUS 5.2 mg/dL (2.5-5.0); POTASSIUM 3.8 mmol/L (3.5-4.5); TOTAL PROTEIN 4.5 g/dL (6.4-8.9)
--- NOTE | 2023-07-26 10:14 | PROVIDER PROGRESS NOTE ---
Subjective - Prog Note Date Prog Note Date: 07/26/23 Prog Note Time: 10:12 - Subjective Pt reports feeling: No change (Declines enteral feeding, feels she can "try to eat applesauce".) Current Medications - Current Medications Current Medications: Active Medications Generic Name Dose Route Start Last Admin Trade Name Freq PRN Reason Stop Dose Admin Acetaminophen 650 mg 07/20/23 12:37 07/25/23 17:41 Acetaminophen 325 Mg Tablet PO 650 mg Q4HR PRN Administration Pain or Fever > 38C (100.4F) Cyclobenzaprine HCl 10 mg 07/20/23 17:20 07/23/23 20:59 Cyclobenzaprine 10 Mg Tablet PO 10 mg Q8H PRN Administration Spasms Diclofenac Sodium 2 gm 07/20/23 17:57 07/25/23 17:46 Diclofenac Sodium 1% Gel 50 Gm Tube TOP 2 gm QID PRN Administration Mild Pain (Level 1-3) Enoxaparin Sodium 40 mg 07/20/23 09:00 07/26/23 08:43 Enoxaparin 40 Mg/0.4 Ml Syringe SUBQ 40 mg DAILY ARLENE Administration Gabapentin 300 mg 07/19/23 21:00 07/25/23 21:04 Gabapentin 100 Mg Capsule PO 300 mg HS ARLENE Administration Guaifenesin 10 ml 07/21/23 19:14 07/23/23 20:59 Guaifenesin/Dextromethorphan 10 Ml Udc PO 10 ml Q6HR PRN Administration Cough Multivitamins 10 ml/ TRACE 2,011 mls @ 83 mls/hr 07/23/23 12:00 07/25/23 21:49 ELEMENTS 1 ml/ Amino Acids/ IV 83 mls/hr Electrolytes/Dextrose 1200 ARLENE Infusion Protocol Montelukast Sodium 10 mg 07/20/23 21:00 07/25/23 21:04 Montelukast 10 Mg Tablet PO 10 mg QPM ARLENE Administration Multi-Ingredient Ointment 1 applic 07/20/23 06:03 07/26/23 05:38 Zinc Oxide 20% Oint 30 Gm Tube TOP 1 applic PRN PRN Administration Skin Care Ondansetron HCl 4 mg 07/20/23 07:35 07/25/23 22:13 Ondansetron 4 Mg/2 Ml Vial IVP 4 mg Q4HR PRN Administration Nausea / Vomiting Pantoprazole Sodium 40 mg 02/12/24 08:00 07/26/23 06:16 Pantoprazole 40 Mg Tablet PO 40 mg QDAC ARLENE Administration Prochlorperazine Edisylate 10 mg 07/24/23 12:22 07/26/23 08:52 Prochlorperazine 10 Mg/2 Ml Vial IVP 10 mg Q6HR PRN Administration Nausea / Vomiting Prochlorperazine Maleate 5 mg 07/24/23 12:22 Prochlorperazine 5 Mg Tablet PO Q6HR PRN Nausea / Vomiting Saccharomyces Boulardii 250 mg 07/21/23 08:00 07/26/23 08:43 Saccharomyces Boulardii 250 Mg Capsule PO 250 mg BIDWM ARLENE Administration Sodium Chloride 10 ml 07/19/23 20:19 07/25/23 06:05 Sodium Chloride Flush 0.9% 10 Ml Syringe IVP 10 ml PRN PRN Administration NEEDED PER PROVIDER ORDERS Sodium Chloride 10 ml 07/20/23 01:00 07/26/23 08:44 Sodium Chloride Flush 0.9% 10 Ml Syringe IVP 10 ml 0100,0900,1700 ARLENE Administration Throat Lozenges 1 lozenge 07/20/23 23:59 07/26/23 09:04 Benzocaine/Menthol Lozenge MM 1 lozenge Q2HR PRN Administration Throat pain Celecoxib [CeleBREX] 200 mg PO DAILY PRN 07/11/14 Cyclobenzaprine [Flexeril] 10 mg PO Q8H PRN 07/11/14 Esomeprazole Magnesium [Nexium 24Hr] 20 mg PO DAILY 07/11/14 Montelukast [Singulair] 10 mg PO DAILY 07/11/14 Simvastatin 40 mg PO DAILY 07/11/14 Losartan [Cozaar] 50 mg PO DAILY 07/16/23 Amlodipine Besylate [Norvasc] 2.5 mg PO BID 07/19/23 Gabapentin [Neurontin] 300 mg PO HS 07/19/23 Tbo-Filgrastim [Granix] 300 mcg SUBQ DAILY PRN 07/20/23 Objective - Vital Signs/Intake & Output Reviewed Vital Signs: Yes Vital Signs: Vital Signs x48h Temp Pulse Resp BP Pulse Ox 07/26/23 08:00 37.3 C 99 18 108/74 93 Intake & Output: Intake & Output 07/23/23 07/24/23 07/25/23 07/26/23 23:59 23:59 23:59 23:59 Intake Total 1924 2819.867 2729.500 Output Total 50 3250 3300 600 Balance 1874 -430.133 -570.500 -600 - Objective General Appearance: positive: No acute distress, Other (Petite chronically-ill appearing female with alopecia. Frequently sleeping but awakens easily.) Respiratory: positive: Chest non-tender, No respiratory distress, Breath sounds nml, Other (diminished at both bases) Cardiovascular: positive: Regular rate & rhythm, Other (murmur heard best at right sternal border) Abdomen: positive: Non-tender Skin: positive: Color nml, No rash, Warm Extremities: positive: Non-tender, Other (1+ edema to RLE (not new per staff)) - Lab Results Fish Bones: 07/26/23 04:42 07/26/23 04:42 Other Labs: Lab Results x24hrs 07/26/23 07/26/23 Range/Units 04:42 04:42 WBC 5.8 (4.8-10.8) x10^3/uL RBC 3.12 L (4.20-5.40) 10^6/uL Hgb 9.9 L (12.0-16.0) g/dL Hct 30.7 L (37.0-47.0) % MCV 98.4 (81.0-99.0) fL MCH 31.7 H (27.0-31.0) pg MCHC 32.2 (32.0-36.0) g/dL RDW 15.9 H (12.0-15.0) % Plt Count 242 (130-450) 10^3/uL MPV 8.9 (7.9-10.8) fL Neut # (Auto) 2.8 (1.5-6.6) 10^3/uL Lymph # (Auto) 1.7 (1.5-3.5) 10^3/uL [place] # (Auto) 0.6 (0.0-1.0) 10^3/uL Eos # (Auto) 0.5 (0.0-0.7) 10^3/uL Baso # (Auto) 0.1 (0.0-0.1) 10^3/uL Absolute Nucleated RBC 0.00 x10^3/uL Nucleated RBC % 0.0 /100WBC Sodium 128 L (135-145) mmol/L Potassium 3.8 (3.5-4.5) mmol/L Chloride 95 L (101-111) mmol/L Carbon Dioxide 31 (21-32) mmol/L Anion Gap 2.0 L (6-13) BUN 14 (6-20) mg/dL Creatinine 0.4 L (0.6-1.3) mg/dL Estimated GFR (MDRD) 154 (>89) Glucose 124 H (74-104) mg/dL Calcium 8.7 (8.5-10.3) mg/dL Phosphorus 5.2 H (2.5-5.0) mg/dL Magnesium 1.8 (1.7-2.3) mg/dL Total Bilirubin 0.3 (0.2-1.0) mg/dL AST 19 (10-42) IU/L ALT 8 L (10-60) IU/L Alkaline Phosphatase 111 (42-121) IU/L Total Protein 4.5 L (6.4-8.9) g/dL Albumin 2.6 L (3.2-5.5) g/dL Globulin 1.9 L (2.1-4.2) g/dL Albumin/Globulin Ratio 1.4 (1.0-2.2) Prealbumin 9 L (17-34) mg/dL Triglycerides 351 (48-352) mg/dL ABX Reporting Has patient been on IV antibiotics over the past 48 hours?: No Assessment/Plan - Problem List (1) UTI due to extended-spectrum beta lactamase (ESBL) producing Escherichia coli Impression: Resolved. Urine cx from 07/10 grew ESBL E coli. S/p 3 courses of PO antibiotics outpatient (Cipro, Bactrim, Macrobid) with persistent symptoms with prompted her ED visit. Presented with fevers, chills, malaise, lack of energy. No dysuria. Poor appetite. s/p course of meropenem. (2) Breast CA Impression: Triple negative breast CA, on chemo every Thursday (except last 2 weeks prior to admit). Treatment at [facility]. Has been on Taxol, paraplatin, most recently on Keytruda (pembrolizumab). Case discussed with oncology who felt the Keytruda likely caused the colitis. Plan: Continue to hold Keytruda. Outpatient follow up with oncology Qualifiers: Estrogen receptor status: positive Patient sex: female Laterality: unspecified laterality (3) Colitis Impression: Mild. Improved. Suspect due to use of immune checkpoint inhibitor (Keytruda). CT showed mild diffuse colonic inflammation. Has had associated nausea (which persists). Vomiting and diarrhea have resolved. Continues to report intermittent dry heaves and poor appetite but suspect these symptoms are multifactorial and not solely due to the colitis. Poor PO intake, encouraged to take more PO. Plan: On PPN, treat nausea, encourage PO (4) FTT (failure to thrive) in adult Impression: Due to cancer on Keytruda, ESBL UTI, colitis, and persistent nausea. She has had very poor PO intake and has been reluctant to get out of bed, citing nausea as a reason for her inability to eat or perform much activity. Poor nutritional status with declining albumin (2.6 today) and anorexia (no appetite). Prealbumin was 6.0 on 07/25. Has been on PPN which she cannot continue at SNF. She today declines enteral feeding. Per staff she is also declining SNF and wants to go home. She seems to be overestimating her ability to care for herself and improve. Plan: Continue PPN for now. Declined enteral feeding. Cannot have PPN or TPN at SNF (also declining SNF). Anti-emetics prn Recheck weight today ECOG 3 and NRI (nutritional risk index) shows severe risk both of which are predictors of poor survival Consider palliative care/hospice consult if patient is willing to discuss, will need radha discussion today on her poor prognosis with her malnutrition (5) Protein calorie malnutrition Impression: See above. Poor PO appetite for several days. Also has electrolyte imbalances requiring replacement. Low albumin and prealbumin. Plan: PPN. Monitor lytes. Qualifiers: Protein-calorie malnutrition severity: severe Qualified Code(s): E43 - Unspecified severe protein-calorie malnutrition (6) Hyponatremia Impression: Suspect due to poor nutrition. Plan: PPN. Monitor sodium. (7) Chronic pain Impression: Stable. Has chronic muscle spasms and headaches. Also has pain in long bones from Keytruda. Plan: continue gabapentin, prn Voltaren gel, prn Toradol, Tylenol Qualifiers: Chronic pain type: other chronic pain Qualified Code(s): G89.29 - Other chronic pain (8) Hypomagnesemia Impression: Improved. Due to poor nutrition. Plan: Monitor. replace as needed. (9) Hypokalemia Impression: Improved. Due to poor nutrition. Plan: replace as needed. Monitor. (10) Anemia Impression: Stable. Suspect multifactorial due to active cancer on Keytruda and inflammatory block from acute illness. No evidence of acute bleeding. B12 normal. Iron low at 15, s/p 2 doses IV iron. Plan: Monitor H/H as indicated Qualifiers: Anemia type: unspecified type Qualified Code(s): D64.9 - Anemia, unspecified (11) Hypotension Impression: Resolved Qualifiers: Hypotension type: unspecified hypotension type Qualified Code(s): I95.9 - Hypotension, unspecified (12) Nausea, vomiting and diarrhea Impression: see above (13) Abnormal EKG Impression: EKG on admit with inferior Q waves and anterior Q waves. No chest pain. Last echo EF 60-65% with diastolic dysfunction. No concern for ACS. Plan: Outpatient follow up
[2023-07-27 05:28] LABS: BASOPHILS # (AUTO) 0.1 10^3/uL (0.0-0.1); BASOPHILS % (AUTO) 1.3 %; EOSINOPHILS # (AUTO) 0.8 10^3/uL (0.0-0.7); EOSINOPHILS % (AUTO) 12.3 %; HCT - HEMATOCRIT 30.3 % (37.0-47.0); HGB - HEMOGLOBIN 9.8 g/dL (12.0-16.0); LYMPHOCYTES % (AUTO) 31.7 %; MEAN CORPUSCULAR HEMOGLOBIN 32.2 pg (27.0-31.0); MEAN CORPUSCULAR HGB CONC 32.3 g/dL (32.0-36.0); MEAN CORPUSCULAR VOLUME 99.7 fL (81.0-99.0); MEAN PLATELET VOLUME 9.3 fL (7.9-10.8); MONOCYTES # (AUTO) 0.6 10^3/uL (0.0-1.0); MONOCYTES % (AUTO) 9.5 %; NEUTROPHILS # (AUTO) 2.8 10^3/uL (1.5-6.6); NEUTROPHILS % (AUTO) 44.6 %; PLT - PLATELET COUNT 243 10^3/uL (130-450); RED BLOOD COUNT 3.04 10^6/uL (4.20-5.40); WHITE BLOOD COUNT 6.2 x10^3/uL (4.8-10.8)
[2023-07-27] MEDS: FLUTICASONE NASAL SPRAY NAS SCH (08:44)
--- NOTE | 2023-07-27 17:30 | PROVIDER PROGRESS NOTE ---
Subjective - Prog Note Date Prog Note Date: 07/27/23 Prog Note Time: 16:00 - Subjective Subjective: States she took a few bites of the soup and it was awful, kept down a few bites of other food. Had dry heaves again today. Says before she got ill with her UTI she was eating well; plans to keep trying to take PO, asked if her family can bring food in, this was encouraged. Did get up today and pivoted to the chair and to the bedside commode. Current Medications - Current Medications Current Medications: Active Medications Generic Name Dose Route Start Last Admin Trade Name Freq PRN Reason Stop Dose Admin Acetaminophen 650 mg 07/20/23 12:37 07/26/23 19:30 Acetaminophen 325 Mg Tablet PO 650 mg Q4HR PRN Administration Pain or Fever > 38C (100.4F) Cyclobenzaprine HCl 10 mg 07/20/23 17:20 07/23/23 20:59 Cyclobenzaprine 10 Mg Tablet PO 10 mg Q8H PRN Administration Spasms Diclofenac Sodium 2 gm 07/20/23 17:57 07/27/23 06:36 Diclofenac Sodium 1% Gel 50 Gm Tube TOP 2 gm QID PRN Administration Mild Pain (Level 1-3) Enoxaparin Sodium 40 mg 07/20/23 09:00 07/27/23 08:44 Enoxaparin 40 Mg/0.4 Ml Syringe SUBQ 40 mg DAILY ARLENE Administration Fluticasone Propionate 1 sprays 07/27/23 09:00 07/27/23 08:44 Fluticasone Nasal [place] 1 spr DAILY ARLENE Administration Gabapentin 300 mg 07/19/23 21:00 07/26/23 20:39 Gabapentin 100 Mg Capsule PO 300 mg HS ARLENE Administration Guaifenesin 10 ml 07/21/23 19:14 07/23/23 20:59 Guaifenesin/Dextromethorphan 10 Ml Udc PO 10 ml Q6HR PRN Administration Cough Multivitamins 10 ml/ TRACE 2,011 mls @ 83 mls/hr 07/23/23 12:00 07/27/23 12:10 ELEMENTS 1 ml/ Amino Acids/ IV 83 mls/hr Electrolytes/Dextrose 1200 ARLENE Administration Protocol Montelukast Sodium 10 mg 07/20/23 21:00 07/26/23 20:39 Montelukast 10 Mg Tablet PO 10 mg QPM ARLENE Administration Multi-Ingredient Ointment 1 applic 07/20/23 06:03 07/27/23 06:36 Zinc Oxide 20% Oint 30 Gm Tube TOP 1 applic PRN PRN Administration Skin Care Ondansetron HCl 4 mg 07/20/23 07:35 07/27/23 11:41 Ondansetron 4 Mg/2 Ml Vial IVP 4 mg Q4HR PRN Administration Nausea / Vomiting Pantoprazole Sodium 40 mg 07/20/23 08:00 07/27/23 06:36 Pantoprazole 40 Mg Tablet PO 40 mg QDAC ARLENE Administration Prochlorperazine Edisylate 10 mg 07/24/23 12:22 07/27/23 08:43 Prochlorperazine 10 Mg/2 Ml Vial IVP 10 mg Q6HR PRN Administration Nausea / Vomiting Prochlorperazine Maleate 5 mg 07/24/23 12:22 Prochlorperazine 5 Mg Tablet PO Q6HR PRN Nausea / Vomiting Saccharomyces Boulardii 250 mg 07/21/23 08:00 07/27/23 17:15 Saccharomyces Boulardii 250 Mg Capsule PO 250 mg BIDWM ARLENE Administration Sodium Chloride 10 ml 07/19/23 20:19 07/25/23 06:05 Sodium Chloride Flush 0.9% 10 Ml Syringe IVP 10 ml PRN PRN Administration NEEDED PER PROVIDER ORDERS Sodium Chloride 10 ml 07/20/23 01:00 07/27/23 17:15 Sodium Chloride Flush 0.9% 10 Ml Syringe IVP Not Given 0100,0900,1700 [facility] Throat Lozenges 1 lozenge 07/20/23 23:59 07/27/23 03:54 Benzocaine/Menthol Lozenge MM 1 lozenge Q2HR PRN Administration Throat pain Celecoxib [CeleBREX] 200 mg PO DAILY PRN 07/11/14 Cyclobenzaprine [Flexeril] 10 mg PO Q8H PRN 07/11/14 Esomeprazole Magnesium [Nexium 24Hr] 20 mg PO DAILY 07/11/14 Montelukast [Singulair] 10 mg PO DAILY 07/11/14 Simvastatin 40 mg PO DAILY 07/11/14 Losartan [Cozaar] 50 mg PO DAILY 07/16/23 Amlodipine Besylate [Norvasc] 2.5 mg PO BID 07/19/23 Gabapentin [Neurontin] 300 mg PO HS 07/19/23 Tbo-Filgrastim [Granix] 300 mcg SUBQ DAILY PRN 07/20/23 Objective - Vital Signs/Intake & Output Reviewed Vital Signs: Yes Vital Signs: Vital Signs x48h Temp Pulse Resp BP Pulse Ox 07/27/23 15:22 37.5 C 109 H 20 122/73 95 Intake & Output: Intake & Output 07/24/23 07/25/23 07/26/23 07/27/23 23:59 23:59 23:59 23:59 Intake Total 2819.867 2729.500 2063.583 1519.1 Output Total 3250 3300 1900 1800 Balance -430.133 -570.500 163.583 -280.9 - Objective General Appearance: positive: Other (Chronically ill-appearing female with alopecia in no acute distress. Has a pink head cover on.) Respiratory: positive: Chest non-tender, No respiratory distress, Breath sounds nml Cardiovascular: positive: Regular rate & rhythm, Other (murmur heard best at left sternal border) Abdomen: positive: Non-tender, Nml bowel sounds, No distention, Other (+flatus) Skin: positive: No rash, Warm, Dry Neurologic/Psychiatric: positive: Oriented x3 - Lab Results Fish Bones: 07/27/23 04:44 07/26/23 04:42 Other Labs: Lab Results x24hrs 07/27/23 07/25/23 Range/Units 04:44 00:06 WBC 6.2 (4.8-10.8) x10^3/uL RBC 3.04 L (4.20-5.40) 10^6/uL Hgb 9.8 L (12.0-16.0) g/dL Hct 30.3 L (37.0-47.0) % MCV 99.7 H (81.0-99.0) fL MCH 32.2 H (27.0-31.0) pg MCHC 32.3 (32.0-36.0) g/dL RDW 16.0 H (12.0-15.0) % Plt Count 243 (130-450) 10^3/uL MPV 9.3 (7.9-10.8) fL Neut # (Auto) 2.8 (1.5-6.6) 10^3/uL Lymph # (Auto) 2.0 (1.5-3.5) 10^3/uL [place] # (Auto) 0.6 (0.0-1.0) 10^3/uL Eos # (Auto) 0.8 H (0.0-0.7) 10^3/uL Baso # (Auto) 0.1 (0.0-0.1) 10^3/uL Absolute Nucleated RBC 0.00 x10^3/uL Nucleated RBC % 0.0 /100WBC POC Whole Bld Glucose 137 H (70 - 100) mg/dL ABX Reporting Has patient been on IV antibiotics over the past 48 hours?: No Assessment/Plan - Problem List (1) FTT (failure to thrive) in adult Impression: The main reason she remains in hospital. Due to cancer on Keytruda, ESBL UTI, colitis, and persistent nausea. She has had very poor PO intake and has been reluctant to get out of bed, citing nausea as a reason for her inability to eat or perform much activity. Poor nutritional status with declining albumin. Prealbumin was 6.0 on 07/25. Has been on PPN which cannot continue at SNF. On 07/26 declined enteral feeding. Per staff she is also declining SNF and wants to go home. She seems to be overestimating her ability to care for herself and improve. Weight today 68.5 kg, was 71 kg on admit which is a 3.5% weight loss in 8d, which is a significant amount. Plan: Continue PPN for now. Declined enteral feeding. Cannot have PPN or TPN at SNF (also declining SNF). Anti-emetics prn ECOG 3 and NRI (nutritional risk index) shows severe risk both of which are predictors of poor survival Consider palliative care/hospice consult if patient is willing to discuss, will need radha discussion on her poor prognosis with her malnutrition (2) Protein calorie malnutrition Impression: See above. Poor PO intake. Also has electrolyte imbalances requiring replacement. Low albumin and prealbumin. Plan: PPN. Monitor lytes. If her intake does improve may need to monitor for refeeding syndrome. Qualifiers: Protein-calorie malnutrition severity: severe Qualified Code(s): E43 - Unspecified severe protein-calorie malnutrition (3) Breast CA Impression: Triple negative breast CA, on chemo every Thursday (except last 2 weeks prior to admit). Treatment at [facility]. Has been on Taxol, paraplatin, most recently on Keytruda (pembrolizumab). Case discussed with oncology who felt the Keytruda likely caused the colitis. Plan: Continue to hold Keytruda. Outpatient follow up with oncology Qualifiers: Estrogen receptor status: positive Patient sex: female Laterality: unspecified laterality Qualified Code(s): C50.919 - Malignant neoplasm of unspecified site of unspecified female breast; Z17.0 - Estrogen receptor positive status [ER+] (4) Colitis Impression: Mild. Improved. Suspect due to use of immune checkpoint inhibitor (Keytruda). CT showed mild diffuse colonic inflammation. Has had associated nausea (which persists). Vomiting and diarrhea have resolved. Continues to report intermittent dry heaves and poor appetite but suspect these symptoms are multifactorial and not solely due to the colitis. Poor PO intake, encouraged to take more PO. Plan: On PPN, treat nausea, encourage PO (5) Hyponatremia Impression: Due to poor nutrition. Plan: PPN. Monitor sodium. (6) Chronic pain Impression: Stable. Has chronic muscle spasms and headaches. Also has pain in long bones from Keytruda. Plan: continue gabapentin, prn Voltaren gel, prn Toradol, Tylenol Qualifiers: Chronic pain type: other chronic pain Qualified Code(s): G89.29 - Other chronic pain (7) Hypomagnesemia Impression: Improved. Due to poor nutrition. Plan: Monitor. replace as needed. (8) Hypokalemia Impression: Improved. Due to poor nutrition. Plan: replace as needed. Monitor. (9) Anemia Impression: Stable. Suspect multifactorial due to active cancer on Keytruda and inflammatory block from acute illness. No evidence of acute bleeding. B12 normal. Iron low at 15, s/p 2 doses IV iron. Plan: Monitor H/H as indicated Qualifiers: Anemia type: unspecified type Qualified Code(s): D64.9 - Anemia, unspecified (10) UTI due to extended-spectrum beta lactamase (ESBL) producing Escherichia coli Impression: Resolved. Urine cx from 07/10 grew ESBL E coli. S/p course of meropenem. (11) Hypotension Impression: Resolved Qualifiers: Hypotension type: unspecified hypotension type Qualified Code(s): I95.9 - Hypotension, unspecified (12) Nausea, vomiting and diarrhea Impression: see above (13) Abnormal EKG Impression: EKG on admit with inferior Q waves and anterior Q waves. No chest pain. Last echo EF 60-65% with diastolic dysfunction. No concern for ACS. Plan: Outpatient follow up
[2023-07-28 05:09] LABS: BASOPHILS # (AUTO) 0.1 10^3/uL (0.0-0.1); BASOPHILS % (AUTO) 1.1 %; EOSINOPHILS # (AUTO) 0.7 10^3/uL (0.0-0.7); EOSINOPHILS % (AUTO) 12.8 %; HCT - HEMATOCRIT 28.9 % (37.0-47.0); HGB - HEMOGLOBIN 9.3 g/dL (12.0-16.0); LYMPHOCYTES # (AUTO) 1.9 10^3/uL (1.5-3.5); LYMPHOCYTES % (AUTO) 34.4 %; MEAN CORPUSCULAR HGB CONC 32.2 g/dL (32.0-36.0); MEAN CORPUSCULAR VOLUME 99.3 fL (81.0-99.0); MEAN PLATELET VOLUME 8.9 fL (7.9-10.8); MONOCYTES # (AUTO) 0.5 10^3/uL (0.0-1.0); MONOCYTES % (AUTO) 9.2 %; NEUTROPHILS # (AUTO) 2.3 10^3/uL (1.5-6.6); NEUTROPHILS % (AUTO) 42.1 %; PLT - PLATELET COUNT 233 10^3/uL (130-450); RED BLOOD COUNT 2.91 10^6/uL (4.20-5.40); RED CELL DISTRIBUTION WIDTH 16.1 % (12.0-15.0); WHITE BLOOD COUNT 5.5 x10^3/uL (4.8-10.8)
[2023-07-28 05:25] LABS: ALBUMIN 2.6 g/dL (3.2-5.5); ALBUMIN/GLOBULIN RATIO 1.2 (1.0-2.2); BILIRUBIN,TOTAL 0.3 mg/dL (0.2-1.0); CALCIUM 8.9 mg/dL (8.5-10.3); CREATININE 0.4 mg/dL (0.6-1.3); MAGNESIUM 1.7 mg/dL (1.7-2.3); PHOSPHORUS 6.6 mg/dL (2.5-5.0); POTASSIUM 4.3 mmol/L (3.5-4.5); TOTAL PROTEIN 4.7 g/dL (6.4-8.9)
--- NOTE | 2023-07-28 15:39 | PROVIDER PROGRESS NOTE ---
Assessment/Plan - Problem List (1) FTT (failure to thrive) in adult Assessment/Plan: Due to cancer on Keytruda, her ESBL UTI, her colitis, and persistent nausea., she has had very poor PO intake and has been reluctant to get out of bed, citing nausea as a reason for her inability to eat or perform much activity. Poor nutritional status with declining albumin. Prealbumin was 6.0 on 07/25. Has been on PPN which cannot continue at SNF. On 07/26 declined enteral feeding. Per staff she is also declining SNF and wants to go home. She seems to be overestimating her ability to care for herself and improve. ECOG 3 and NRI (nutritional risk index) shows severe risk both of which are predictors of poor survival She has been on PPN for 4 days. Consider palliative care/hospice consult if patient is willing to discuss, will need radha discussion on her poor prognosis with her malnutrition Plan: Stop PPN. She has been able to take in food today that family brings in. Encourage po intake. Anti-emetics prn and scheduled pre-meals. She just started working with PT and they recommend SNF. The patient refuses SNF. I will order home health for PT, OT, bath aide. I spoke to Social Work today to provide the patient and with resources for hiring extra caregivers (2) Protein calorie malnutrition Impression: See #1. Poor PO intake. Also has electrolyte imbalances requiring replacement, and has low albumin and prealbumin. Weight today 68.5 kg, was 71 kg on admit which is a 3.5% weight loss in 8d, which is a significant amount. She has been on PPN for 4 days. Plan: Stop PPN. She has been able to take in food today that family brings in (today she ate pea nut butter sandwich and grapes) and this did not give her nausea. Anticipate discharge soon Qualifiers: Protein-calorie malnutrition severity: severe Qualified Code(s): E43 - Unspecified severe protein-calorie malnutrition (3) Breast CA Impression: Triple negative breast CA, on chemo every Thursday (except last 2 weeks prior to admit). Treatment at [facility]. Has been on Taxol, paraplatin, most recently on Keytruda (pembrolizumab). Case discussed with oncology who felt the Keytruda likely caused the colitis. Plan: Continue to hold Keytruda while here. Outpatient follow up with oncology Qualifiers: Estrogen receptor status: positive Patient sex: female Laterality: unspecified laterality Qualified Code(s): C50.919 - Malignant neoplasm of unspecified site of unspecified female breast; Z17.0 - Estrogen receptor positive status [ER+] (4) Colitis Impression: Mild. Improved. Vomiting and diarrhea have resolved. She still has nausea. Suspect this was due to use of immune checkpoint inhibitor (Keytruda). CT showed mild diffuse colonic inflammation. Continues to report poor appetite but suspect these symptoms are multifactorial and not solely due to the colitis. We have encouraged her to take more PO. Plan: Stop PPN. (5) Hyponatremia Impression: Due to poor nutrition. Plan: Follow BMP daily (6) Chronic pain Impression: Stable. Has chronic muscle spasms and headaches. Also has pain in long bones from Keytruda. Plan: We will continue gabapentin, prn Voltaren gel, prn Toradol, Tylenol Qualifiers: Chronic pain type: other chronic pain Qualified Code(s): G89.29 - Other chronic pain (7) Hypomagnesemia Impression: Improved. Due to poor nutrition. Plan: Monitor. replace as needed. (8) Hypokalemia Impression: Improved. Due to poor nutrition. Plan: Monitor and replace as needed. (9) Anemia Impression: Stable. Suspect multifactorial due to active cancer on Keytruda and inflammatory block from acute illness. No evidence of acute bleeding. B12 normal. Iron low at 15, s/p 2 doses IV iron. Plan: Monitor H/H as indicated Qualifiers: Anemia type: unspecified type Qualified Code(s): D64.9 - Anemia, unspecified (10) UTI due to extended-spectrum beta lactamase (ESBL) producing Escherichia coli Impression: Resolved. Urine cx from 2 grew ESBL E coli. She finished her course of meropenem. (11) Hypotension Impression: RESOLVED Qualifiers: Hypotension type: unspecified hypotension type Qualified Code(s): I95.9 - Hypotension, unspecified (12) Abnormal EKG Impression: EKG on admit with inferior Q waves and anterior Q waves. No chest pain. Last echo EF 60-65% with diastolic dysfunction. No concern for ACS. Plan: Outpatient follow up - Current Meds Current Meds: Current Medications Generic Name Dose Route Start Last Admin Trade Name Freq PRN Reason Stop Dose Admin Acetaminophen 650 mg 07/20/23 12:37 07/28/23 09:17 Acetaminophen 325 Mg Tablet PO 650 mg Q4HR PRN Administration Pain or Fever > 38C (100.4F) Cyclobenzaprine HCl 10 mg 07/20/23 17:20 07/23/23 20:59 Cyclobenzaprine 10 Mg Tablet PO 10 mg Q8H PRN Administration Spasms Diclofenac Sodium 2 gm 07/20/23 17:57 07/27/23 06:36 Diclofenac Sodium 1% Gel 50 Gm Tube TOP 2 gm QID PRN Administration Mild Pain (Level 1-3) Enoxaparin Sodium 40 mg 07/20/23 09:00 07/28/23 09:17 Enoxaparin 40 Mg/0.4 Ml Syringe SUBQ 40 mg DAILY ARLENE Administration Fluticasone Propionate 1 sprays 07/27/23 09:00 07/28/23 09:17 Fluticasone Nasal [place] IRA 1 spr DAILY ARLENE Administration Gabapentin 300 mg 07/19/23 21:00 07/27/23 21:03 Gabapentin 100 Mg Capsule PO 300 mg HS ARLENE Administration Guaifenesin 10 ml 07/21/23 19:14 07/23/23 20:59 Guaifenesin/Dextromethorphan 10 Ml Udc PO 10 ml Q6HR PRN Administration Cough Montelukast Sodium 10 mg 07/20/23 21:00 07/27/23 21:03 Montelukast 10 Mg Tablet PO 10 mg QPM ARLENE Administration Multi-Ingredient Ointment 1 applic 07/20/23 06:03 07/27/23 06:36 Zinc Oxide 20% Oint 30 Gm Tube TOP 1 applic PRN PRN Administration Skin Care Ondansetron HCl 4 mg 07/20/23 07:35 07/27/23 11:41 Ondansetron 4 Mg/2 Ml Vial IVP 4 mg Q4HR PRN Administration Nausea / Vomiting Pantoprazole Sodium 40 mg 07/20/23 08:00 07/28/23 06:36 Pantoprazole 40 Mg Tablet PO 40 mg QDAC ARLENE Administration Prochlorperazine Edisylate 10 mg 07/24/23 12:22 07/27/23 08:43 Prochlorperazine 10 Mg/2 Ml Vial IVP 10 mg Q6HR PRN Administration Nausea / Vomiting Saccharomyces Boulardii 250 mg 07/21/23 08:00 07/28/23 09:17 Saccharomyces Boulardii 250 Mg Capsule PO 250 mg BIDWM ARLENE Administration Sodium Chloride 10 ml 07/19/23 20:19 07/25/23 06:05 Sodium Chloride Flush 0.9% 10 Ml Syringe IVP 10 ml PRN PRN Administration NEEDED PER PROVIDER ORDERS Sodium Chloride 10 ml 07/20/23 01:00 07/28/23 09:18 Sodium Chloride Flush 0.9% 10 Ml Syringe IVP Not Given 0100,0900,1700 ARLENE Throat Lozenges 1 lozenge 07/20/23 23:59 07/27/23 03:54 Benzocaine/Menthol Lozenge MM 1 lozenge Q2HR PRN Administration Throat pain - Lab Result Fish Bone Diagrams: 07/28/23 04:34 07/28/23 04:34 - Additional Planning My Orders: My Active Orders 07/28/23 Home Health Referral [CONS] Routine Social Work Consult [CONS] Routine 07/28/23 12:59 Miscellaenous Nursing Order [RC] QSHIFT Subjective - Subjective Patient Reports: Feeling Better (Tolerated peanut butter sandwich and grapes, had no nausea) Nursing Reports: Other (The RN is giving her Compazine scheduled 30 minutes before meal. Patient said [facility] not worked for her) Objective Vital Signs: Vital Signs - 24 hr 07/28/23 01:38 Temperature 37.1 C Heart Rate [ 99 Brachial] Respiratory 18 Rate Blood Pressure 101/56 L [Left Brachial artery] O2 Saturation 94 Oxygen O2 Source Room air I&O (Last 24 Hrs): Intake and Output Totals x24h 07/26/23 07/27/23 07/28/23 23:59 23:59 23:59 Intake Total 2063.583 2653.883 520 Output Total 1900 2400 200 Balance 163.583 253.883 320 General: Mild distress (She is weak and appears tired, speaks with a soft voice) HEENT: Mucous membr. moist/pink, Other (Alopecia) Neck: Supple, No JVD Neuro: Alert, Non Focal Cardiovascular: Regular rate Respiratory: No respiratory distress Abdomen: Soft, No tenderness Extremities: No clubbing, No edema - Results Results: Laboratory Results WBC 5.5 x10^3/uL (4.8-10.8) 07/28/23 04:34 RBC 2.91 10^6/uL (4.20-5.40) L 07/28/23 04:34 Hgb 9.3 g/dL (12.0-16.0) L 07/28/23 04:34 Hct 28.9 % (37.0-47.0) L 07/28/23 04:34 MCV 99.3 fL (81.0-99.0) H 07/28/23 04:34 MCH 32.0 pg (27.0-31.0) H 07/28/23 04:34 MCHC 32.2 g/dL (32.0-36.0) 07/28/23 04:34 RDW 16.1 % (12.0-15.0) H 07/28/23 04:34 Plt Count 233 10^3/uL (130-450) 07/28/23 04:34 MPV 8.9 fL (7.9-10.8) 07/28/23 04:34 Neut # (Auto) 2.3 10^3/uL (1.5-6.6) 07/28/23 04:34 Lymph # (Auto) 1.9 10^3/uL (1.5-3.5) 07/28/23 04:34 [place] # (Auto) 0.5 10^3/uL (0.0-1.0) 07/28/23 04:34 Eos # (Auto) 0.7 10^3/uL (0.0-0.7) 07/28/23 04:34 Baso # (Auto) 0.1 10^3/uL (0.0-0.1) 07/28/23 04:34 Absolute Nucleated RBC 0.00 x10^3/uL 07/28/23 04:34 Nucleated RBC % 0.0 /100WBC 07/28/23 04:34 Sodium 128 mmol/L (135-145) L 07/28/23 04:34 Potassium 4.3 mmol/L (3.5-4.5) 07/28/23 04:34 Chloride 95 mmol/L (101-111) L 07/28/23 04:34 Carbon Dioxide 29 mmol/L (21-32) 07/28/23 04:34 Anion Gap 4.0 (6-13) L 07/28/23 04:34 BUN 20 mg/dL (6-20) 07/28/23 04:34 Creatinine 0.4 mg/dL (0.6-1.3) L 07/28/23 04:34 Estimated GFR (MDRD) 154 (>89) 07/28/23 04:34 Glucose 121 mg/dL (74-104) H 07/28/23 04:34 POC Whole Bld Glucose 137 mg/dL (70 - 100) H 07/25/23 00:06 Lactic Acid 0.6 mmol/L (0.5-2.2) 07/20/23 07:45 Calcium 8.9 mg/dL (8.5-10.3) 07/28/23 04:34 Phosphorus 6.6 mg/dL (2.5-5.0) H 07/28/23 04:34 Magnesium 1.7 mg/dL (1.7-2.3) 07/28/23 04:34 Iron 15 ug/dL (50-212) L 07/21/23 04:59 TIBC 169 ug/dL (250-450) L 07/21/23 04:59 % Saturation 9 % (20-50) L 07/21/23 04:59 Transferrin 121 mg/dL (203-362) L 07/21/23 04:59 Total Bilirubin 0.3 mg/dL (0.2-1.0) 07/28/23 04:34 AST 20 IU/L (10-42) 07/28/23 04:34 ALT 10 IU/L (10-60) 07/28/23 04:34 Alkaline Phosphatase 112 IU/L (42-121) 07/28/23 04:34 Total Protein 4.7 g/dL (6.4-8.9) L 07/28/23 04:34 Albumin 2.6 g/dL (3.2-5.5) L 07/28/23 04:34 Globulin 2.1 g/dL (2.1-4.2) 07/28/23 04:34 Albumin/Globulin Ratio 1.2 (1.0-2.2) 07/28/23 04:34 Prealbumin 10 mg/dL (17-34) L 07/28/23 04:34 Triglycerides 333 mg/dL (48-352) 07/28/23 04:34 Vitamin B12 844 pg/mL (180-914) 07/21/23 04:59 Folate 8.8 ng/mL (5.90 - >24.8) 07/21/23 04:59 Urine Color YELLOW 07/19/23 15:53 Urine Clarity HAZY (CLEAR) 07/19/23 15:53 Urine pH 6.0 PH (5.0-7.5) 07/19/23 15:53 Ur Specific [place] <=1.005 (1.002-1.030) 07/19/23 15:53 Urine Protein NEGATIVE mg/dL (NEGATIVE) 07/19/23 15:53 Urine Glucose (UA) NEGATIVE mg/dL (NEGATIVE) 07/19/23 15:53 Urine Ketones 40 mg/dL (NEGATIVE) H 07/19/23 15:53 Urine Occult Blood TRACE-INTA (NEGATIVE) 07/19/23 15:53 Urine Nitrite NEGATIVE (NEGATIVE) 07/19/23 15:53 Urine Bilirubin NEGATIVE (NEGATIVE) 07/19/23 15:53 Urine Urobilinogen 0.2 (NORMAL) E.U./dL (NORMAL) 07/19/23 15:53 Ur Leukocyte Esterase SMALL (NEGATIVE) H 07/19/23 15:53 Urine RBC 0-5 /HPF (0-5) 07/19/23 15:53 Urine WBC >25 /HPF (0-5) H 07/19/23 15:53 Ur Epithelial Cells FEW Transitional /HPF (<= Few) 07/19/23 15:53 Ur Squamous Epith Cells RARE Squamous (<= Few) 07/19/23 15:53 Urine Bacteria Few /HPF (None Seen) 07/19/23 15:53 Urine Culture Comments INDICATED 07/19/23 15:53 Urine Sodium 53.4 mmol/L 07/20/23 18:40 Nasal Adenovirus (PCR) NOT DETECTED 07/19/23 14:20 Nasal B. parapertussis DNA (PCR) NOT DETECTED 07/19/23 14:20 Nasal Coronavir 229E PCR NOT DETECTED 07/19/23 14:20 Nasal Coronavir HKU1 PCR NOT DETECTED 07/19/23 14:20 Nasal Coronavir NL63 PCR NOT DETECTED 07/19/23 14:20 Nasal Coronavir OC43 PCR NOT DETECTED 07/19/23 14:20 Nasal Enterovir/Rhinovir PCR NOT DETECTED 07/19/23 14:20 Nasal Influenza B PCR NOT DETECTED 07/21/23 12:05 Nasal Influenza A PCR NOT DETECTED 07/21/23 12:05 Nasal Parainfluen 1 PCR NOT DETECTED 07/19/23 14:20 Nasal Parainfluen 2 PCR NOT DETECTED 07/19/23 14:20 Nasal Parainfluen 3 PCR NOT DETECTED 07/19/23 14:20 Nasal Parainfluen 4 PCR NOT DETECTED 07/19/23 14:20 Nasal RSV (PCR) NOT DETECTED 07/21/23 12:05 Nasal B.pertussis DNA PCR NOT DETECTED 07/19/23 14:20 Nasal C.pneumoniae (PCR) NOT DETECTED 07/19/23 14:20 Ira Human Metapneumo PCR NOT DETECTED 07/19/23 14:20 Nasal M.pneumoniae (PCR) NOT DETECTED 07/19/23 14:20 Nasal SARS-CoV-2 (PCR) NOT DETECTED 07/21/23 12:05
[2023-07-29 05:37] LABS: BASOPHILS # (AUTO) 0.1 10^3/uL (0.0-0.1); BASOPHILS % (AUTO) 1.2 %; EOSINOPHILS # (AUTO) 0.8 10^3/uL (0.0-0.7); EOSINOPHILS % (AUTO) 15.5 %; HCT - HEMATOCRIT 27.5 % (37.0-47.0); HGB - HEMOGLOBIN 8.9 g/dL (12.0-16.0); LYMPHOCYTES # (AUTO) 1.7 10^3/uL (1.5-3.5); LYMPHOCYTES % (AUTO) 34.1 %; MEAN CORPUSCULAR HEMOGLOBIN 31.6 pg (27.0-31.0); MEAN CORPUSCULAR HGB CONC 32.4 g/dL (32.0-36.0); MEAN CORPUSCULAR VOLUME 97.5 fL (81.0-99.0); MEAN PLATELET VOLUME 8.5 fL (7.9-10.8); MONOCYTES # (AUTO) 0.5 10^3/uL (0.0-1.0); MONOCYTES % (AUTO) 10.8 %; NEUTROPHILS # (AUTO) 1.9 10^3/uL (1.5-6.6); NEUTROPHILS % (AUTO) 38.2 %; PLT - PLATELET COUNT 242 10^3/uL (130-450); RED BLOOD COUNT 2.82 10^6/uL (4.20-5.40); RED CELL DISTRIBUTION WIDTH 15.8 % (12.0-15.0)
[2023-07-29] MEDS: PROCHLORPERAZINE 5 MG TABLET PO PRN (08:31)
[2023-07-29 08:35] VITALS: BP 106/58; O2SAT 95
--- NOTE | 2023-07-29 10:16 | Discharge Plan ---
Discharge Plan Problem Reviewed?: Yes Disposition: Home Health Service Condition: Fair Prescriptions: Prochlorperazine [Compazine] 5 mg PO ACHS PRN #120 tab PRN Reason: Nausea / Vomiting Diet: Regular (Please eat anything that you like, Ensure and Boost shakes or other high calorie supplements are recommended too) Activity Restrictions: Activity as Tolerated Shower Restrictions: No Driving Restrictions: Yes (Because of your severe weakness) Assistance Devices: Walker Weight Bearing: Full Weight Health Concerns: You were hospitalized to treat a resistant bacteria in your urine. That course of antibiotics has been completed. Then we gave you iv nutrition for several days, while you had persistent nausea and a poor appetite which caused you to lose weight. You have become very weak and deconditioned while mostly wanting to be in bed. Rehab with physical therapy was advised, but you chose not to go to a [facility] to get rehab, instead you are opting to go home. A referral for a Home Health Agency was submitted for you to get in-home physical therapy, occupational therapy and a Bath Aide. You will need to arrange for more caregiving help for yourself, which is NOT provided by a Home Health agency. You are being discharged home today. Please stay well hydrated and increase your nutritional intake. A new prescription for Compazine tablets, to take before meals, was electronically sent to your [facility] pharmacy in [place]. You may resume all your other, usual pre-hospital medications, EXCEPT DO NOT TAKE Amlodipine or Lisinopril because your blood pressure is now too low to take those meds. And DO NOT TAKE your cholesterol medicine, since without eating m uch, your cholesterol is also low currently. Plan of Treatment: As above. Care Goals: Improvement in symptoms and stabilization are the goals. Assessment: Patient understands and is agreeable with the plan. Additional Instructions or Follow Up instructions: Please keep your appointment to see WAITRESS Zara Gill tomorrow. Follow-Up Care: Home Health - PT, Home Health - OT No Smoking: If you smoke, Please STOP! Call for help. Follow-up with: Zara Jay ARNP [Provider Admit Priv/Credential] -
--- NOTE | 2023-07-29 10:17 | DISCHARGE SUMMARY ---
Discharge Summary Admit Date: 07/19/23 Discharge Date: 07/29/23 Discharging Provider: Dr Inna Nelson Primary Care Provider: LENNY Jay Code Status: Do Not Attempt Resuscitation Condition at Discharge: Fair Discharge Disposition: [facility] History of Present Illness: Chief complaint: fever, generalized weakness, no energy, Pt is a 78yo female with hx of htn, hyperlipidemia, tripple negatived breast CA on chemo every thursday except not the last 2 Thu, presenting to ED with complaint of fever, chills, no energy. She has an ongoing UTI from with ESBL ecoli. Pt was treated with cipro, bactrim, macrobid with no improvements. Persistence of symptoms prompted her to seek medical attention today. In the ED she is afebrile, UA is abn showing a persistent UTI. Initial plan was to give iv bactrim and send home then seeing the ESBL-sensitivities, decision to admit. Discussed with ED attending for the need to treat ESBL with Merem. She appears comfortable, is awake and alert, but appears tired, is verbalizing appropriatel y. Denies any abd or flank pain, admits to poor appetite due to ongoing nausea with vomiting, has no headaches. - HOSPITAL COURSE Hospital Course: (1) UTI due to extended-spectrum beta lactamase (ESBL) producing Escherichia coli Resolved. Urine cx from 07/10/23 grew ESBL E coli. She finished her course of meropenem while here. (2) Hypotension Improved with many days of iv fluids and all her BP home meds were kept on hold. (3) Colitis CT showed mild diffuse colonic inflammation. Her sx slowly improved; vomiting and diarrhea resolved, but she had ongoing slight nausea. Suspect this is due to use of immune checkpoint inhibitor (Keytruda) and not solely due to the colitis. She received several days of PPN nutrition, and was able to resume a diet before being discharged home. (4) Hyponatremia Due to poor nutrition, and she needed iv saline, then PPN and eventually this resolved. (5) FTT (failure to thrive) in adult Due to cancer on Keytruda, her ESBL UTI infection, her colitis, and her chronic, persistent nausea. She had very poor PO intake here and was even reluctant to get out of bed, citing nausea, as the reason for her inability to eat or perform much activity. Her poor nutritional status produces a declining albumin. She was put on PPN. She declined enteral feeding. She also declined going to SNF for strengthening and wanted to go home. She seemed to be overestimating her ability to care for herself and improve. ECOG 3 and NRI (nutritional risk index) shows severe risk both of which are predictors of poor survival. A Home Health Agency referral was submitted. (6) Protein calorie malnutrition She had poor PO intake, causing low albumin and prealbumin. Weight before discharge was 68 kg, and was 71 kg on admit, which is a 3.5% weight loss in 10 days, which is a significant amount. She received iv PPN for 4 days. We encouraged her to eat food that she wants, that family brought in. What did help was using Compazine tablets taken 20 to 30 minutes before meals, and she was prescribed this at discharge. (7) Hypomagnesemia Due to poor nutrition. Improved with replacement (8) Hypokalemia Due to poor nutrition. Improved with replacement (9) Anemia Suspect multifactorial: due to active cancer, on Keytruda and from acute illness. No evidence of acute bleeding. B12 normal. Iron low at 15, s/p 2 doses IV iron while here. Hgb at discharge was 8.9. (10) Abnormal EKG EKG on admit with inferior Q waves and anterior Q waves. No chest pain. Last Echo EF 60-65% with diastolic dysfunction. She needs outpatient follow up for this finding. (11) Breast CA She has triple negative breast CA, on chemo every Thursday (except last several weeks prior to this admit). Treatment is at [facility]. Has been on Taxol, paraplatin, most recently on Keytruda (pembrolizumab). Case discussed with oncology who felt the Keytruda likely caused the colitis. The Keytruda was on hold while here. She will have continued follow up with her oncologist. (12) Chronic pain She has chronic muscle spasms and headaches, also pain in long bones from Keytruda. We kept her on gabapentin, prn Voltaren gel, prn Toradol, and Tylenol - ALLERGIES Allergies/Adverse Reactions: Allergies Allergy/AdvReac Type Severity Reaction Status Date / Time codeine Allergy Nausea Verified 07/16/23 22:10 morphine Allergy Itching Verified 07/16/23 22:10 erythromycin base AdvReac Nausea Verified 07/16/23 22:10 - MEDICATIONS Home Medications: Ambulatory Orders Medication Instructions Recorded Confirmed Celecoxib [CeleBREX] 200 mg PO DAILY PRN 07/11/14 07/19/23 Cyclobenzaprine [Flexeril] 10 mg PO Q8H PRN 07/11/14 07/20/23 Esomeprazole Magnesium [Nexium 20 mg PO DAILY 07/11/14 07/19/23 24Hr] Montelukast [Singulair] 10 mg PO DAILY 07/11/14 07/19/23 Gabapentin [Neurontin] 300 mg PO HS 07/19/23 07/19/23 Tbo-Filgrastim [Granix] 300 mcg SUBQ DAILY PRN 07/20/23 07/20/23 Prochlorperazine [Compazine] 5 mg PO ACHS PRN #120 tab 07/29/23 Zinc Oxide 20% Oint [Zinc Oxide] 1 applic TOP PRN PRN each 07/29/23 - PHYSICAL EXAM AT DISCHARGE General Appearance: positive: No acute distress, Alert, Other (Alopecia. Appears tired and appears weak.) Eyes Bilateral: positive: No lid inflammation ENT: positive: No signs of dehydration, Other (Alopecia) Neck: positive: Nml inspection, No JVD Respiratory: positive: No respiratory distress, Breath sounds nml Cardiovascular: positive: Regular rate & rhythm, No murmur Abdomen: positive: Non-tender, No organomegaly, Nml bowel sounds Skin: positive: Warm, Dry, Pallor Extremities: positive: No pedal edema Neurologic/Psychiatric: positive: Oriented x3, CN's nml (2-12), Motor nml, Other (Has generalized weakness) - LABS Result Diagrams: 07/29/23 05:29 07/28/23 04:34 - DIAGNOSTIC IMAGING Diagnostic Imaging Results: Final report reviewed - FOLLOW UP Follow Up: See PCP tomorrow NOTE TO HIM: Please CC records from this visit to: Subha Bal MD [facility] - TIME SPENT Time Spent in Discharge (Minutes): 45
[2023-07-29] MEDS ORDERED: GABAPENTIN 300 MG CAPSULE PO SCH (21:00)
== END 2023-07-29 13:20 | disposition home health service (06) | DRG 689 ==
LOC: ED 13:54 → MS2 20:20
PROVIDERS: ADMIT Internal Medicine; ATTEND Internal Medicine
DX: N12 Tubulo-interstitial nephritis, not specified as acute or chronic (principal); N39.0 Urinary tract infection, site not specified; E43 Unspecified severe protein-calorie malnutrition; R00.0 Tachycardia, unspecified; R15.9 Full incontinence of feces; D64.9 Anemia, unspecified; E87.1 Hypo-osmolality and hyponatremia; K52.9 Noninfective gastroenteritis and colitis, unspecified; R53.1 Weakness; Z20.822 Contact with and (suspected) exposure to COVID-19; K52.1 Toxic gastroenteritis and colitis; B96.20 Unspecified Escherichia coli [E. coli] as the cause of diseases classified elsewhere; I95.9 Hypotension, unspecified; R62.7 Adult failure to thrive; E83.42 Hypomagnesemia; E87.6 Hypokalemia; D63.0 Anemia in neoplastic disease; D64.81 Anemia due to antineoplastic chemotherapy; T45.1X5A Adverse effect of antineoplastic and immunosuppressive drugs, initial encounter; R94.31 Abnormal electrocardiogram [ECG] [EKG]; C50.919 Malignant neoplasm of unspecified site of unspecified female breast; G89.29 Other chronic pain; M62.838 Other muscle spasm; R51.9 Headache, unspecified; M89.8X9 Other specified disorders of bone, unspecified site; I10 Essential (primary) hypertension; E78.5 Hyperlipidemia, unspecified; E86.0 Dehydration; Z68.26 Body mass index [BMI] 26.0-26.9, adult; Z79.60 Long term (current) use of unspecified immunomodulators and immunosuppressants
CPT/HCPCS: 36415; 71045; 74177; 80048; 80053; 81001; 82607; 82746; 83540; 83605; 83735; 84100; 84134; 84295; 84300; 84466; 84478; 85025; 87040; 87086; 87633; 87637; 93005; 93307; 96361; 96374; 97110; 97161; 97165; 97530; 97535; 99285; A9270; J1650; J2185; J2916; J3490; J7060; J7120; Q9967

== ENCOUNTER 2023-08-03 12:14 | Outpatient (CLI) | payer MEDICARE, OTHER | END 2023-08-03 23:59 | disposition EMS.NT | LOC: EMS 12:14 | DX: R53.81 Other malaise (principal); R63.8 Other symptoms and signs concerning food and fluid intake ==

== ENCOUNTER 2023-08-19 08:00 | Outpatient (CLI) | payer MEDICARE, OTHER | END 2023-08-19 23:59 | disposition home or self-care (01) | LOC: PC 08:00 | PROVIDERS: ATTEND Nurse Practitioner Gerontology | DX: Z51.5 Encounter for palliative care (principal); E27.1 Primary adrenocortical insufficiency; C50.912 Malignant neoplasm of unspecified site of left female breast; C77.9 Secondary and unspecified malignant neoplasm of lymph node, unspecified; Z17.1 Estrogen receptor negative status [ER-]; Z71.89 Other specified counseling; G47.00 Insomnia, unspecified | CPT/HCPCS: 99350 ==

== ENCOUNTER → 2023-09-15 | Outpatient (CLI) | payer MEDICARE, OTHER | LOC: PC 08:00 | PROVIDERS: ATTEND Nurse Practitioner Gerontology | DX: Z51.5 Encounter for palliative care (principal); E27.1 Primary adrenocortical insufficiency; C50.912 Malignant neoplasm of unspecified site of left female breast; Z90.12 Acquired absence of left breast and nipple; Z71.89 Other specified counseling | CPT/HCPCS: 99215 ==

== ENCOUNTER 2023-09-21 08:00 | Outpatient (CLI) | payer MEDICARE, OTHER | END 2023-09-21 23:59 | disposition home or self-care (01) | LOC: PC 08:00 | PROVIDERS: ATTEND Nurse Practitioner Gerontology | DX: Z53.9 Procedure and treatment not carried out, unspecified reason (principal) ==

== ENCOUNTER 2024-01-11 08:00 | Outpatient (CLI) | payer MEDICARE, OTHER ==
[2024-01-11 12:56] LABS: BASOPHILS # (AUTO) 0.1 10^3/uL (0.0-0.1); BASOPHILS % (AUTO) 1.2 %; EOSINOPHILS # (AUTO) 0.2 10^3/uL (0.0-0.7); EOSINOPHILS % (AUTO) 4.1 %; HCT - HEMATOCRIT 40.6 % (37.0-47.0); LYMPHOCYTES # (AUTO) 1.6 10^3/uL (1.5-3.5); LYMPHOCYTES % (AUTO) 39.5 %; MEAN CORPUSCULAR HEMOGLOBIN 30.3 pg (27.0-31.0); MEAN CORPUSCULAR VOLUME 94.6 fL (81.0-99.0); MEAN PLATELET VOLUME 9.4 fL (7.9-10.8); MONOCYTES # (AUTO) 0.3 10^3/uL (0.0-1.0); NEUTROPHILS # (AUTO) 1.9 10^3/uL (1.5-6.6); PLT - PLATELET COUNT 218 10^3/uL (130-450); RED BLOOD COUNT 4.29 10^6/uL (4.20-5.40); RED CELL DISTRIBUTION WIDTH 13.2 % (12.0-15.0); WHITE BLOOD COUNT 4.1 x10^3/uL (4.8-10.8)
[2024-01-11 13:43] LABS: ALBUMIN 4.5 g/dL (3.2-5.5); ALBUMIN/GLOBULIN RATIO 2.3 (1.0-2.2); BILIRUBIN,TOTAL 0.4 mg/dL (0.2-1.0); CALCIUM 9.9 mg/dL (8.5-10.3); CREATININE 0.7 mg/dL (0.6-1.3); POTASSIUM 4.1 mmol/L (3.5-4.5); TOTAL PROTEIN 6.5 g/dL (6.4-8.9)
== END 2024-01-11 08:01 | disposition home or self-care (01) ==
LOC: LAB.N 08:00
PROVIDERS: ATTEND Nurse Practitioner Family
DX: E46 Unspecified protein-calorie malnutrition (principal); R62.7 Adult failure to thrive
CPT/HCPCS: 36415; 80053; 85025